=== PATIENT | female | born 1935 | race Caucasian/White ===

== ENCOUNTER 2017-05-20 21:00 | Inpatient (IN) ==
[2017-05-20] MEDS ORDERED: PANTOPRAZOLE 40 MG VIAL IV STA (21:51)
[2017-05-20] MEDS ORDERED: METOCLOPRAMIDE 10 MG/2 ML VIAL IV STA (21:51)
[2017-05-20] MEDS ORDERED: ALBUTEROL/IPRATROPIUM 3 ML NEB RESP TX STA (21:51)
[2017-05-20] MEDS ORDERED: methylPREDNISolone SOD SUC 125 MG/2 ML VIAL IV STA (21:51)
[2017-05-20] MEDS ORDERED: LEVOFLOXACIN INJ 750 MG in PREMIX 1 EACH IV STA (21:54)
--- NOTE | 2017-05-20 22:01 | Emergency Department Note ---
Arrival - Arrival Chief Complaint: Shortness of Breath Stated Complaint: SOB ED Nursing Triage Note: pt presented to triage via w/c with c/o SOB x 1 week. worse tonight. Albuterol neb taken [employer] w/o relief. denies cp at this time. Esophageal dilation done 05/15/17 Mode of Arrival: Wheelchair Limitations: No Limitations Source: Patient, Family Time Seen by Provider: 05/20/17 21:51 - History of Present Illness HPI Narrative: This 81-year-old white female presents with one-week of persistent shortness of breath associated with a dry cough and occasional wheeze. The patient denies any chills, fever, purulence, or hemoptysis. Patient states that whenever she has an esophageal procedure done, she usually has an exacerbation of her COPD or aspiration pneumonia. In this regard she had esophageal dilation in the last week. Currently at rest in bed she appears in no acute distress. Onset (ago): week(s) (Patient presents 1 week post onset of symptoms) Date of Last Menstrual Period: [facility] Allergies/Adverse Reactions: Allergies Allergy/AdvReac Type Severity Reaction Status Date / Time No Known Allergies Allergy Verified 05/20/17 21:14 Home Medications: Home Medications Medication Instructions Recorded Confirmed Type Escitalopram [Lexapro] 20 mg PO BEDTIME 12/08/15 05/09/17 History Mometasone/Formoterol 100-5 2 puff INH BID PRN 12/08/15 05/15/17 History [Dulera 100-5] Amiodarone Tab [Cordarone Tab] 200 mg PO DAILY tablet 02/22/16 05/09/17 Rx Furosemide Tab [Lasix Tab] 40 mg PO DAILY tablet 02/22/16 05/09/17 Rx Promethazine Tab [Phenergan Tab] 25 mg PO BID PRN 06/20/16 05/09/17 History Albuterol/Ipratropium Neb [Duoneb] 3 ml RESP TX RT Q6H PRN 06/21/16 05/15/17 History Ondansetron Tab [Zofran Tab] 8 mg PO Q6HR PRN 05/09/17 05/09/17 History Pantoprazole Tab [Protonix Tab] 40 mg PO DAILY 05/09/17 05/09/17 History Temazepam [Restoril] 30 mg PO DAILY 05/09/17 05/09/17 History Warfarin [Coumadin] 1.5 tablet PO DAILY@1800 05/09/17 05/09/17 History Levofloxacin Tab [Levaquin Tab] 750 mg PO DAILY #10 tablet 05/21/17 Rx predniSONE TAB [PredniSONE] 20 mg PO DAILY #15 tablet 05/21/17 Rx Review of System - Review of System 12 point system: reviewed and no additional remarkable complaints except as stated - Review of System Constitutional: Present: as per HPI Respiratory: Present: as per HPI Cardiovascular: Present: as per HPI Gastrointestinal: Present: as per HPI Medical,Surgical,& Family Hx - Medical History Cardio: History of: Cardiac Dysrhythmia (A-FIB ON COUMADIN), CHF, PVD (FOR AF ARTERIOGRAM 03/08/15), Cardiovascular Problems (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 BANUELOS), Obstructive Sleep Apnea (no sleep study), Pneumonia Genitourinary: History of: Recurring Urinary Tract Infections Gastrointestinal: History of: Diverticulitis/ Diverticulosis, GERD, Hemorrhoids (HEMORRHOIDECTOMY), GI Problems (HIATAL HERNIA, botox to esophagus x1, needs again) No history of: Hepatitis, Liver Problems Musculoskeletal: History of: Back/Neck Problems, Degenerative Disk Disease, Herniated Disk, Musculoskeletal Problems (ARTHRITIS and lupus) No history of: Amputation Hematology: History of: Anemia No history of: Blood Transfusion Reaction (GREATER 50 YRS SEVERAL BLOOD TRANSFUSIONS-NO REACTION) Other: History of: 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) - Surgical History Cardiac Surgeries: Sugical HX of: Femoral-Popliteal Bypass Graft (stents to bilat legs), Cardiac Catheterization (x2) Patient Denies: Carotid Endarterectomy Thoracic Surgeries: Patient denies;: Organ Transplant, Lobectomy Neurologic Surgeries: Patient denies: Neurologic Surgery HEENT Surgeries: Surgical HX of: Eye Surgery (CATARACT BILATERALLY) Patient denies: Carotid Endarterectomy, Tonsilectomy & Adenoidectomy Abdominal Surgeries: Surgical HX of: Abdominal Surgery, Appendectomy, Colonoscopy, EGD Patient denies: Cholecystectomy Reproductive Surgeries: Surgical HX of;: Gynecologic Surgery, Hysterectomy (BSO 1961) Patient denies;: Breast Surgery, Genitourinary Surgery Orthopedic Surgeries: Patient denies;: Orthopedic Surgery - Family History Family History: Reports;: Family Cancer (MOTHER KIDNEY, BROTHER BONE, and sister ), Family Heart Disease (FATHER OF CHF), Family Hypertension (SISTER), Family Stroke (SISTERS times 3) - Social History Smoking Status: Current every day smoker Frequency of Alcohol Use: Rarely Type of Drug Use: None Exam Physical Examination: GENERAL: Well developed, well nourished elderly white female in no acute distress. HEENT: Normocephalic. No trauma. Moist mucous membranes. EOMI. PERRLA. ENT NML NECK: Supple. No adenopathy. CARDIAC: Regular. No murmurs. Heart rate 84 CHEST: Clear to auscultation. No respiratory distress. O2 sat 91% ABDOMEN: Soft. Nontender. Active bowel sounds. EXTREMITIES: No trauma. Normal ROM. No pedal edema. SKIN: No diaphoresis. No rash. NEURO: Alert. Neuro intact no focal deficits. Vital Signs: Vital Signs Temperature 99.4 F 05/20/17 21:09 Pulse Rate 64 05/20/17 21:09 Respiratory Rate 18 05/20/17 21:09 Blood Pressure 200/72 05/20/17 21:09 O2 Sat by Pulse Oximetry 91 L 05/20/17 21:09 Course - Reevaluation(s) Reevaluation #1: Discussed with patient the results of her studies which would indicate a combination of exacerbation of COPD with possible early right lower lobe infiltrate as well as congestive heart failure. For that reason she has been advised hospitalization. - Consultations Consultation #1: Discussed with hospitalist service who will admit for further evaluation treatment. Results - Labs CBC & BMP: 05/20/17 22:18 05/20/17 22:18 Disposition Clinical Impression: Tracheobronchitis, CHF, RLL infiltrate, Hypokalemia Case discussed with: patient, patient's family Disposition: Still a Patient Condition: Stable Instructions: Chronic Obstructive Pulmonary Disease (ED) Prescriptions: Levofloxacin Tab [Levaquin Tab] 750 mg PO DAILY #10 tablet predniSONE TAB [PredniSONE] 20 mg PO DAILY #15 tablet New Prescriptions: Rx's Medication Instructions Recorded Levofloxacin Tab [Levaquin Tab] 750 mg PO DAILY #10 tablet 05/21/17 predniSONE TAB [PredniSONE] 20 mg PO DAILY #15 tablet 05/21/17 Time of Disposition: 00:39
[2017-05-20] MEDS ORDERED: LEVOFLOXACIN INJ 150 ML IV ONE (22:57)
[2017-05-20] MEDS ORDERED: PANTOPRAZOLE 40 MG VIAL IV ONE (22:57)
[2017-05-20] MEDS ORDERED: METOCLOPRAMIDE 10 MG/2 ML VIAL ONE (22:57)
[2017-05-20] MEDS ORDERED: methylPREDNISolone SOD SUC 125 MG/2 ML VIAL ONE (22:58)
[2017-05-20 23:22] LABS: Albumin 2.9 G/DL (3.4-5.0); Bilirubin,Total 0.6 MG/DL (0.2-1.0); Calcium 8.3 MG/DL (8.5-10.1); Osmolality,Calculated 276.5 MOS/KG (273-304); Potassium 3.1 MMOL/L (3.5-5.1); Total Protein 7.6 G/DL (6.4-8.3)
[2017-05-20 23:23] LABS: Troponin I Only 0.054 NG/ML (0.00-0.045)
[2017-05-20 23:29] LABS: Basophils % 0.7 % (0.0-0.8); Eosinophils # 0.1 10*3/uL (0.0-0.87); Hematocrit 35.2 VOL% (35.7-47.0); Immature Granulocytes % 0.3 %; Immature Granulocytes Absolute 0.02 #; Lymphocytes # 2.5 10*3/uL (1.4-4.0); Lymphocytes % 40.8 % (21.3-54.2); Mean Corpuscular HGB Conc 31.3 GM/DL (32-36); Mean Corpuscular Hemoglobin 27 PG (27-34); Mean Corpuscular Volume 86.3 FL (87-102); Mean Platelet Volume 11.5 FL (9.6-12.0); Monocytes # 0.8 10*3/uL (0.11-0.8); Monocytes % 12.6 % (1.7-12.7); Neutrophils # 2.7 10*3/uL (1.4-7.4); Neutrophils % 43.6 % (38.7-73.9); Platelet Count 172 T/CUMM (130-400); Red Blood Count 4.08 MC/CUMM (3.8-5.5); White Blood Count 6.1 T/CUMM (4-12)
[2017-05-20] MEDS ORDERED: POTASSIUM BICARB EFFERVESCENT 25 MEQ TABLET PO ONE (23:37)
[2017-05-20 23:43] LABS: D-Dimer <= 0.5 MG/L FEU; INR 2.1; Partial Thromboplastin Time 29.2 SECS (0-40)
[2017-05-20 23:44] LABS: PT Patient Result 22.7 SECS
[2017-05-21 00:18] LABS: Apearance,Urine CLEAR (Clear); Bilirubin,Urine Negative (Negative); Blood, Urine Negative (Negative); Glucose,Urine (UA) Negative (Negative); Ketones,Urine Negative (Negative); Nitrite,Urine Negative (Negative); Protein,Urine Negative; Squamous Epithelial Cell,Urine Occasional /HPF (0-10); Urine Color Yellow (Yellow); Urine Specific Gravity 1.005 (1.001-1.035); WBC,Urine 3 /HPF (0-6)
[2017-05-21 00:19] LABS: RBC,Urine <1 /HPF (0-4)
[2017-05-21] MEDS ORDERED: POTASSIUM BICARB EFFERVESCENT 25 MEQ TABLET PO ONE (00:34)
[2017-05-21] MEDS ORDERED: ONDANSETRON 4 MG/2 ML VIAL IV STA (00:38)
[2017-05-21] MEDS ORDERED: ONDANSETRON 4 MG/2 ML VIAL ONE (00:39)
[2017-05-21 00:42] LABS: Troponin I Only 0.054 NG/ML (0.00-0.045)
[2017-05-21] MEDS ORDERED: FUROSEMIDE 20 MG/2 ML VIAL IV STA (01:01)
[2017-05-21] MEDS ORDERED: ALBUTEROL/IPRATROPIUM 3 ML NEB RESP TX STA (01:02)
[2017-05-21] MEDS ORDERED: ACETAMINOPHEN 325 MG TABLET PO PRN (01:02)
[2017-05-21] MEDS ORDERED: ONDANSETRON 4 MG/2 ML VIAL IV PRN (01:02)
[2017-05-21] MEDS ORDERED: FUROSEMIDE 20 MG/2 ML VIAL ONE (01:03)
[2017-05-21] MEDS ORDERED: ALBUTEROL/IPRATROPIUM 3 ML NEB RESP TX PRN (01:12)
[2017-05-21] MEDS: cefTRIAXone 2,000 MG in SODIUM CHLORIDE 0.9% 100 ML IV SCH (02:42)
[2017-05-21 03:21] LABS: Basophils % 0.3 % (0.0-0.8); Hematocrit 32.9 VOL% (35.7-47.0); Hemoglobin 10.3 GM/DL (12.0-16.0); Immature Granulocytes % 0.5 %; Immature Granulocytes Absolute 0.02 #; Lymphocytes # 0.4 10*3/uL (1.4-4.0); Lymphocytes % 10.9 % (21.3-54.2); Mean Corpuscular HGB Conc 31.3 GM/DL (32-36); Mean Corpuscular Hemoglobin 27 PG (27-34); Mean Corpuscular Volume 86.1 FL (87-102); Mean Platelet Volume 11.7 FL (9.6-12.0); Monocytes # 0.1 10*3/uL (0.11-0.8); Monocytes % 2.3 % (1.7-12.7); Neutrophils # 3.3 10*3/uL (1.4-7.4); Platelet Count 178 T/CUMM (130-400); Red Blood Count 3.82 MC/CUMM (3.8-5.5); White Blood Count 3.9 T/CUMM (4-12)
[2017-05-21 03:49] LABS: Calcium 8.3 MG/DL (8.5-10.1); Osmolality,Calculated 283.4 MOS/KG (273-304); Potassium 3.1 MMOL/L (3.5-5.1)
[2017-05-21 04:11] LABS: PT Patient Result 22.5 SECS
--- NOTE | 2017-05-21 04:26 | Hospitalist History & Physical ---
Assessment and Plan - Time spent with patient Time spent with patient: Greater than 30 minutes (1) Pneumonia Problem details: CAP; RLL Status: Acute Assessment and plan: Admit to hospitalist services. Consult Pulmonology. Telemetry. O2 per unit protocol. Doxycycline 100 mg PO BID and Ceftriaxone 2,000 mg IV Q24 hours selected for antibiotic therapy due to the patient taking amiodarone and there is a risk of drug interaction causing prolonged QT intervals with other antibiotic medications. DuoNebs Q4 hours PRN. Solumedrol 60 mg IV Q8 hours. CBC and BMP in AM. Blood cultures pending. Follow. Patient is on Coumadin, so no additional DVT prophylaxis needed. Pneumonia vaccine at discharge. Current Visit: No (2) COPD exacerbation Status: Acute Assessment and plan: O2 per unit protocol. Solumedrol 60 mg IV Q8 hours. DuoNebs Q4 hours PRN. Current Visit: Yes (3) Hypokalemia Status: Acute Assessment and plan: KCl 10 meq BID. Recheck BMP in AM. Current Visit: Yes (4) Congestive heart failure Problem details: Mild decompensation Status: Acute Assessment and plan: Cardiac diet. Serial Troponins. Lasix 20 mg IV x 1 dose ordered in ED before patient transfer to floor. Lasix 20 mg IV BID. Current Visit: No Qualifiers: Congestive heart failure type: diastolic Congestive heart failure chronicity: acute on chronic Qualified Code(s): I50.33 - Acute on chronic diastolic (congestive) heart failure (5) History of atrial fibrillation Status: Chronic Assessment and plan: Telemetry. Continue home dose of Coumadin 2 mg daily. Continue home dose of Amiodarone 200 mg daily. Repeat PT/INR in AM. Current Visit: No (6) Anxiety and depression Status: Chronic Assessment and plan: Continue home dose of Lexapro 20 mg QHS. Current Visit: No History of Present Illness Chief complaint: Shortness of breath History of present illness: Ms. Valdez is a 81 year old female who presented to the ED accompanied by her daughter with complaints of worsening shortness of breath over the course of 1 week, dry cough, weakness, malaise, and chills. In the ED, her chest xray showed RLL infiltrates. She was also found to have an elevated BNP at 700 which is consistent with her past medical history that includes CHF. However, tonight she also had a small elevation in her troponin from baseline at .054. Her WBC count was normal and potassium was low at 3.1. Her ECG showed normal sinus rhythm. She has a past medical history significant for COPD, pacemaker, CHF, hypotension, Afib, Lupus and Depression. She is a current every day smoker. Hospitalist services were consulted for medical management of CAP and chronic conditions. Patient is a full code. Home Medications Medication Instructions Recorded Confirmed Type Amiodarone HCl [Amiodarone HCl] 200 mg PO DAILY 05/21/17 05/21/17 History Escitalopram [Lexapro] 10 mg PO DAILY 05/21/17 05/21/17 History Fludrocortisone [Florinef] 0.1 mg PO DAILY 05/21/17 05/21/17 History Furosemide [Furosemide] 40 mg PO DAILY 05/21/17 05/21/17 History Levofloxacin Tab [Levaquin Tab] 750 mg PO DAILY #10 tablet 05/21/17 Rx Pantoprazole Tab [Protonix Tab] 40 mg PO DAILY 05/21/17 05/21/17 History Temazepam [Temazepam] 30 mg PO BEDTIME 05/21/17 05/21/17 History Warfarin Sodium [Warfarin Sodium] 2 mg PO DAILY 05/21/17 05/21/17 History Allergies Allergy/AdvReac Type Severity Reaction Status Date / Time No Known Allergies Allergy Verified 05/20/17 21:14 Medical,Surgical,& Family Hx - Medical History Cardio: History of: Cardiac Dysrhythmia (A-FIB ON COUMADIN), CHF, Pacemaker, PVD (FOR AF ARTERIOGRAM 03/08/15), Cardiovascular Problems (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 BANUELOS), Obstructive Sleep Apnea (no sleep study), Pneumonia Genitourinary: History of: Recurring Urinary Tract Infections Gastrointestinal: History of: Diverticulitis/ Diverticulosis, GERD, Hemorrhoids (HEMORRHOIDECTOMY), GI Problems (HIATAL HERNIA, botox to esophagus x1, needs again) No history of: Hepatitis, Liver Problems Musculoskeletal: History of: Back/Neck Problems, Degenerative Disk Disease, Herniated Disk, Musculoskeletal Problems (ARTHRITIS and lupus) No history of: Amputation Hematology: History of: Anemia No history of: Blood Transfusion Reaction (GREATER 50 YRS SEVERAL BLOOD TRANSFUSIONS-NO REACTION) Other: History of: 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) - Surgical History Cardiac Surgeries: Sugical HX of: Femoral-Popliteal Bypass Graft (stents to bilat legs), Cardiac Catheterization (x2) Patient Denies: Carotid Endarterectomy Thoracic Surgeries: Patient denies;: Organ Transplant, Lobectomy Neurologic Surgeries: Patient denies: Neurologic Surgery HEENT Surgeries: Surgical HX of: Eye Surgery (CATARACT BILATERALLY) Patient denies: Carotid Endarterectomy, Tonsilectomy & Adenoidectomy Abdominal Surgeries: Surgical HX of: Abdominal Surgery, Appendectomy, Colonoscopy, EGD Patient denies: Cholecystectomy Reproductive Surgeries: Surgical HX of;: Gynecologic Surgery, Hysterectomy (BSO 1961) Patient denies;: Breast Surgery, Genitourinary Surgery Orthopedic Surgeries: Patient denies;: Orthopedic Surgery - Family History Family History: Reports;: Family Cancer (MOTHER KIDNEY, BROTHER BONE, and sister ), Family Heart Disease (FATHER OF CHF), Family Hypertension (SISTER), Family Stroke (SISTERS times 3) - Social History Smoking Status: Current every day smoker Have you smoked in the last 12 months: Yes Time spent discussing smoking cessation with patient: 3 to 10 minutes Frequency of Alcohol Use: Rarely Type of Drug Use: None Marital Status: Lives With:: Alone Functional capacity: independent ambulation 12 point system: reviewed and no additional remarkable complaints except as stated - Constitutional Constitutional: Present: chills, malaise, weakness - EENT Eyes: Absent: blurry vision, diplopia Ears: Absent: decreased hearing, ear discharge, ear pain Nose, mouth and throat: Absent: nasal congestion, sore throat - Cardiovascular Cardiovascular: Present: dyspnea, edema. Absent: chest pain at rest, lightheadedness, orthopnea, palpitations - Respiratory Respiratory: Present: cough, dyspnea. Absent: hemoptysis, wheezing - Gastrointestinal Gastrointestinal: Absent: abdominal pain, constipation, diarrhea, nausea, vomiting - Genitourinary Genitourinary: Absent: dysuria, urinary frequency - Musculoskeletal Musculoskeletal: Present: arthralgias, muscle weakness. Absent: joint swelling , myalgias - Neurological Neurological: Absent: dizziness, numbness, paresthesias - Psychiatric Psychiatric: Absent: anxiety, depression - Endocrine Endocrine: Absent: polydipsia, polyphagia, polyuria - Hematologic/Lymphatic Hematologic/Lymphatic: Present: easy bruising. Absent: easy bleeding Exam - Constitutional Vitals: Period Temp Pulse Resp BP Sys/Schreiber Pulse Ox Last 24 Hr 99.4 F 59-71 13-25 136-200/62-86 89-100 Exam: Constitutional System: Low grade temp of 99.4. Awake, alert and oriented x3. No distress. No tremulousness. Head: Normocephalic, atraumatic. Ears, Nose and Throat System: No pain or tenderness. No epistaxis or discharge. Eyes System: Pupils equal, round, and reactive. Extraocular muscles intact. Neck: Supple, without adenopathy, No jugular venous distention. No thyromegaly, neck mass, or prior surgery apparent. Respiratory System: Bilateral rhonchi and bibasilar fine rales noted. Cardiovascular System: Heart with regular rate and rhythm. No murmur. GI System: Abdomen soft, nontender. Normo active bowel sounds present. Musculoskeletal System: 1+ bilateral pedal edema. Full distal pulses. Normal capillary refill. Neurological System: No discernable sensory deficit. No aphasia Psychiatric System: Conversation is rational Results - Labs CBC & BMP: 05/21/17 03:00 05/21/17 03:00 Lab Results: I have reviewed the past 24 hour labs
--- NOTE | 2017-05-21 05:56 | EKG Report ---
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
[2017-05-21] MEDS ORDERED: methylPREDNISolone SOD SUC 40 MG/1 ML VIAL IV SCH (07:00)
--- NOTE | 2017-05-21 07:20 | XRay Report ---
2 view chest. Indication: Shortness of breath. Comparison: July 13, 2016. The heart is enlarged. There is calcific plaque present within the aortic knob. Cardiac hardware is in satisfactory position. The lung ag are hyperexpanded. Interstitial fibrotic changes are present. Diffuse infiltrates and pleural effusions seen on the previous study are no longer present. Degenerative changes are noted within the spinal column. Impression: Severe chronic lung changes. No definite acute process. PROCEDURE INTERPRETED AT [facility] DEPARTMENT OF RADIOLOGY Final Report Signed by: Dr. Jessica Patel
--- NOTE | 2017-05-21 08:53 | Pulmonology Consult Note ---
Assessment and Plan (1) Acute exacerbation of chronic obstructive pulmonary disease (COPD) Status: Acute Assessment and plan: The patient comes in with coughing and shortness of breath and she feels like she is plugged up like she was in the past. She does have trouble clearing thick secretions. Will plan a therapeutic bronchoscopy tomorrow. Current Visit: No (2) Anticoagulant long-term use Status: Chronic Assessment and plan: She is chronically on Coumadin. Her INR is 2.0. Current Visit: No (3) History of atrial fibrillation Status: Chronic Assessment and plan: She has a pacemaker and takes amiodarone therapy. Current Visit: No (4) Protein S deficiency Status: Chronic Assessment and plan: She has had a problem with chronic clotting. Current Visit: No (5) Esophageal motility disorder Status: Chronic Assessment and plan: She has achalasia and had an EGD last week with Botox injections. Current Visit: No (6) Lupus Status: Chronic Assessment and plan: She is not having any problems with lupus at present. Current Visit: No History of Present Illness Chief complaint: Shortness of breath History of present illness: Ms. Valdez is a 81 year old white female that has a long history of several medical problems. She has COPD and chronic heart disease. She has had chronic atrial fibrillation requiring multiple medicines. She has had a pacemaker placed in the past. She has a history of SLE and clotting problems and is on Coumadin. She has had problems with achalasia last week had her esophagus injected with Botox. She says the last several days she has had trouble clearing her secretions and comes in short of breath. She has had mucus plugging in the past. She does have bibasilar infiltrates. She does not appear to be in heart failure at present. She has required therapeutic bronchoscopies in the past. Home Medications Medication Instructions Recorded Confirmed Type Amiodarone HCl [Amiodarone HCl] 200 mg PO DAILY 05/21/17 05/21/17 History Escitalopram [Lexapro] 10 mg PO DAILY 05/21/17 05/21/17 History Fludrocortisone [Florinef] 0.1 mg PO DAILY 05/21/17 05/21/17 History Furosemide [Furosemide] 40 mg PO DAILY 05/21/17 05/21/17 History Levofloxacin Tab [Levaquin Tab] 750 mg PO DAILY #10 tablet 05/21/17 Rx Pantoprazole Tab [Protonix Tab] 40 mg PO DAILY 05/21/17 05/21/17 History Temazepam [Temazepam] 30 mg PO BEDTIME 05/21/17 05/21/17 History Warfarin Sodium [Warfarin Sodium] 2 mg PO DAILY 05/21/17 05/21/17 History Allergies Allergy/AdvReac Type Severity Reaction Status Date / Time No Known Allergies Allergy Verified 05/20/17 21:14 - Constitutional Constitutional: Present: fatigue. Absent: chills, fever(s), weight gain - EENT Eyes: Absent: loss of vision Ears: Absent: decreased hearing Nose, mouth and throat: Present: dysphagia. Absent: headache(s), sinus pressure - Cardiovascular Cardiovascular: Present: dyspnea, edema, orthopnea, palpitations. Absent: chest pain at rest - Respiratory Respiratory: Present: cough, dyspnea, wheezing. Absent: hemoptysis, pain on inspiration, change in phlegm color - Gastrointestinal Gastrointestinal: Present: dysphagia. Absent: abdominal pain, change in bowel habits, heartburn, nausea, vomiting - Genitourinary Genitourinary: Absent: dysuria, hematuria, urinary frequency - Musculoskeletal Musculoskeletal: Present: arthralgias, muscle weakness. Absent: joint swelling - Neurological Neurological: Absent: abnormal speech, focal weakness, paresthesias - Psychiatric Psychiatric: Absent: anxiety Exam (Pulmonay) H&P - Constitutional Vitals: Period Temp Pulse Resp BP Sys/Schreiber Pulse Ox Last 24 Hr 98.3 F-99.4 F 59-71 13-25 117-200/50-86 89-100 General appearance: normal weight, no acute distress (She is comfortable on low- flow oxygen.) - Head Head exam: Present: normal inspection, normocephalic - Eye Eye exam: Present: EOMI. Absent: scleral icterus Pupils: Present: CELIO - ENT ENT exam: Present: normal exam - Neck Neck exam: Absent: lymphadenopathy, thyromegaly - Respiratory Respiratory exam: Present: decreased breath sounds, prolonged expiratory phase, rales, rhonchi - Cardiovascular Cardiovascular exam: Present: regular rate and rhythm. Absent: gallop, systolic murmur - GI/Abdominal GI/Abdominal exam: Present: normal bowel sounds, soft. Absent: organomegaly, tenderness - Extremities Exam Extremities exam: Present: edema (She has very mild edema of her lower extremities.). 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 BANUELOS), Obstructive Sleep Apnea (no sleep study), Pneumonia Genitourinary: History of: Recurring Urinary Tract Infections Gastrointestinal: History of: Diverticulitis/ Diverticulosis, GERD, Hemorrhoids (HEMORRHOIDECTOMY), GI Problems (HIATAL HERNIA, botox to esophagus x1, needs again) No history of: Hepatitis, Liver Problems Musculoskeletal: History of: Back/Neck Problems, Degenerative Disk Disease, Herniated Disk, Musculoskeletal Problems (ARTHRITIS and lupus) No history of: Amputation Hematology: History of: Anemia No history of: Blood Transfusion Reaction (GREATER 50 YRS SEVERAL BLOOD TRANSFUSIONS-NO REACTION) Other: History of: 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) - Surgical History Cardiac Surgeries: Sugical HX of: Femoral-Popliteal Bypass Graft (stents to bilat legs), Cardiac Catheterization (x2) Patient Denies: Carotid Endarterectomy Thoracic Surgeries: Patient denies;: Organ Transplant, Lobectomy Neurologic Surgeries: Patient denies: Neurologic Surgery HEENT Surgeries: Surgical HX of: Eye Surgery (CATARACT BILATERALLY) Patient denies: Carotid Endarterectomy, Tonsilectomy & Adenoidectomy Abdominal Surgeries: Surgical HX of: Abdominal Surgery, Appendectomy, Colonoscopy, EGD Patient denies: Cholecystectomy Reproductive Surgeries: Surgical HX of;: Gynecologic Surgery, Hysterectomy (BSO 1961) Patient denies;: Breast Surgery, Genitourinary Surgery Orthopedic Surgeries: Patient denies;: Orthopedic Surgery - Family History Family History: Reports;: Family Cancer (MOTHER KIDNEY, BROTHER BONE, and sister ), Family Heart Disease (FATHER OF CHF), Family Hypertension (SISTER), Family Stroke (SISTERS times 3) - Social History Smoking Status: Current every day smoker Frequency of Alcohol Use: Rarely Type of Drug Use: None Results - Labs CBC & BMP: 05/21/17 03:00 05/21/17 03:00 - Diagnostic Findings Procedure: Chest x-ray: image reviewed by me, report reviewed by me (Chest x- ray shows COPD changes and bibasilar infiltrates.) Specialty Discharge - Follow Up or Referrals
[2017-05-21] MEDS: POTASSIUM CHLORIDE 10 MEQ TABLET PO SCH ×2 (08:55→20:26)
[2017-05-21] MEDS: AMIODARONE 200 MG TABLET PO SCH (08:56)
[2017-05-21] MEDS: PANTOPRAZOLE 40 MG TABLET PO SCH (08:56)
[2017-05-21] MEDS: FUROSEMIDE 20 MG/2 ML VIAL IV SCH ×2 (08:56→17:34)
[2017-05-21] MEDS: DOXYCYCLINE HYCLATE 100 MG CAPSULE PO SCH ×2 (08:56→20:26)
[2017-05-21] MEDS ORDERED: POTASSIUM CHLORIDE 20 MEQ TABLET PO ONE (08:59)
[2017-05-21] MEDS: methylPREDNISolone SOD SUC 40 MG/1 ML VIAL IV SCH ×2 (10:04→17:33)
[2017-05-21] MEDS: WARFARIN 1 MG TABLET PO SCH (17:34)
[2017-05-21] MEDS ORDERED: WARFARIN 5 MG TABLET PO SCH (18:00)
[2017-05-21] MEDS: ESCITALOPRAM 10 MG TABLET PO SCH (20:26)
[2017-05-21] MEDS: TEMAZEPAM 15 MG CAPSULE PO SCH (20:38)
[2017-05-22] MEDS: cefTRIAXone 2,000 MG in SODIUM CHLORIDE 0.9% 100 ML IV SCH (02:06)
[2017-05-22] MEDS: methylPREDNISolone SOD SUC 40 MG/1 ML VIAL IV SCH ×3 (02:06→17:37)
[2017-05-22] MEDS ORDERED: GLYCOPYRROLATE 0.4 MG/2 ML VIAL IM ONE (07:00)
[2017-05-22] MEDS ORDERED: PROMETHAZINE 25 MG/1 ML VIAL IM ONE (07:00)
[2017-05-22] MEDS ORDERED: MEPERIDINE 50 MG/1 ML VIAL IM ONE (07:00)
[2017-05-22 07:22] LABS: Basophils % 0.1 % (0.0-0.8); Hematocrit 35.5 VOL% (35.7-47.0); Hemoglobin 10.8 GM/DL (12.0-16.0); Immature Granulocytes % 0.7 %; Immature Granulocytes Absolute 0.07 #; Lymphocytes # 0.7 10*3/uL (1.4-4.0); Lymphocytes % 6.9 % (21.3-54.2); Mean Corpuscular HGB Conc 30.4 GM/DL (32-36); Mean Corpuscular Hemoglobin 27 PG (27-34); Mean Corpuscular Volume 88.1 FL (87-102); Mean Platelet Volume 11.9 FL (9.6-12.0); Monocytes # 0.3 10*3/uL (0.11-0.8); Monocytes % 3.2 % (1.7-12.7); Neutrophils # 9.4 10*3/uL (1.4-7.4); Neutrophils % 89.1 % (38.7-73.9); Platelet Count 210 T/CUMM (130-400); Red Blood Count 4.03 MC/CUMM (3.8-5.5); Red Cell Distribution Width 16.3 % (9.3-17.3); White Blood Count 10.5 T/CUMM (4-12)
[2017-05-22] MEDS ORDERED: LIDOCAINE 1% 20 ML VIAL MISC INJ ONE (07:30)
[2017-05-22] MEDS ORDERED: MIDAZOLAM 2 MG/2 ML VIAL IV ONE (07:30)
[2017-05-22] MEDS ORDERED: LIDOCAINE 2% 20 ML VIAL RESP TX ONE (07:30)
[2017-05-22] MEDS ORDERED: LIDOCAINE 2% VISCOUS 100 ML BOTTLE SWISH/SPIT ONE (07:30)
--- NOTE | 2017-05-22 07:44 | Pulmonology Progress Note ---
Pulmonary - PN: Subj Interval history: The patient is an 81-year-old that has COPD and some chronic heart disease. She came in with shortness of breath and bibasilar infiltrates. She has achalasia and had her esophagus injected last week with Botox. She has had trouble swallowing off and on for quite some time. She comes in now with some coughing and congestion and feels like she is plugged up some degree. She wants to proceed with a therapeutic bronchoscopy. She does seem to be breathing better at this point. Exam (Progress Note) - Constitutional Vitals: Period Temp Pulse Resp BP Sys/Schreiber Pulse Ox Last 24 Hr 97.8 F-98.7 F 60-67 13-20 131-178/47-90 90-95 Exam: General appearance: normal weight, no acute distress (She is breathing comfortably at present.) - Head Head exam: Present: normal inspection, normocephalic - Eye Eye exam: Present: EOMI. Absent: scleral icterus Pupils: Present: CELIO - ENT ENT exam: Present: normal exam - Neck Neck exam: Absent: lymphadenopathy, thyromegaly - Respiratory Respiratory exam: She has fair breath sounds bilaterally with prolonged expiration but not much wheezing now. - Cardiovascular Cardiovascular exam: Present: regular rate and rhythm. Absent: gallop, systolic murmur - GI/Abdominal GI/Abdominal exam: Present: normal bowel sounds, soft. Absent: organomegaly, tenderness - Extremities Exam Extremities exam: Present: edema (She has very mild edema of her lower extremities.). Absent: calf tenderness - Neurological Exam Neurological exam: Present: alert, oriented X3, CN II-XII intact, no focal deficits - Psychiatric Psychiatric exam: Present: normal affect, normal mood - Skin Skin exam: Present: warm, dry Results - Labs CBC & BMP: 05/22/17 06:24 05/21/17 03:00 Assessment and Plan (1) Acute exacerbation of chronic obstructive pulmonary disease (COPD) Status: Acute Assessment and plan: The patient comes in with coughing and shortness of breath and she feels like she is plugged up like she was in the past. She does have trouble clearing thick secretions. She seems to be breathing a little better however. Will plan a therapeutic bronchoscopy today and continue treatment otherwise. Current Visit: No (2) Anticoagulant long-term use Status: Chronic Assessment and plan: She is chronically on Coumadin. Her INR is 2.0. Current Visit: No (3) History of atrial fibrillation Status: Chronic Assessment and plan: She has a pacemaker and takes amiodarone therapy. She is mainly in a paced rhythm. Current Visit: No (4) Protein S deficiency Status: Chronic Assessment and plan: She has had a problem with chronic clotting. Current Visit: No (5) Esophageal motility disorder Status: Chronic Assessment and plan: She has achalasia and had an EGD last week with Botox injections. She frequently has trouble swallowing. Current Visit: No (6) Lupus Status: Chronic Assessment and plan: She is not having any problems with lupus at present. Current Visit: No Specialty Discharge - Follow Up or Referrals
--- NOTE | 2017-05-22 07:48 | Operative Note ---
Date of procedure: 05/22/17 Pre-op diagnosis: COPD with bronchitis and mucous plugging Post-op diagnosis: same Procedure: The patient is an 81-year-old that has COPD and still smokes. She comes in with some chest congestion and feels like she is having trouble clearing her secretions. Will proceed with a therapeutic bronchoscopy today. Timeout was performed to identify the patient. The patient is in the bronchoscopy lab. Preop: Demerol 50 mg, Phenergan 25 mg, Robinul 0.1 mg IM. Anesthesia: Versed 3 mg IVP, topical lidocaine. Procedure: The fiberoptic bronchoscope was passed transnasally through the vocal cords into the lungs. The bronchopulmonary segments were identified and specimens were obtained. Findings: The vocal cords close normally and the trachea is unremarkable. The main bronchi are open. There is bronchitis present and airways collapse easily. There is some thick secretions and plugs present bilaterally. These are not as severe as they were in the past. The right upper lobe, right middle lobe, and right lower lobe are open. The left upper lobe, lingula, and left lower lobe are open. The airways were irrigated with saline and washed and cleared. She tolerated the bronchoalveolar lavage quite well. Washings were sent for culture. She really did not have any distress. There are no endobronchial lesions seen. Impression: COPD with bronchitis and mucous plugging. Plan: We will continue bronchodilator therapy. Anesthesia: conscious sedation Surgeon / Physician: Patrick Douglass Estimated blood loss: none Specimens: other (Bronchoalveolar lavage sent for culture.) Condition: stable Disposition: floor Results - Labs CBC & BMP: 05/22/17 06:24 05/21/17 03:00 Discharge Plan - Discharge Medications New Levofloxacin Tab [Levaquin Tab] 750 mg PO DAILY #10 tablet No Action Escitalopram [Lexapro] 10 mg PO DAILY Furosemide [Furosemide] 40 mg PO DAILY Amiodarone HCl [Amiodarone HCl] 200 mg PO DAILY Warfarin Sodium [Warfarin Sodium] 2 mg PO DAILY Fludrocortisone [Florinef] 0.1 mg PO DAILY Pantoprazole Tab [Protonix Tab] 40 mg PO DAILY Temazepam [Temazepam] 30 mg PO BEDTIME - Follow Up or Referral - Forms/Instructions Instructions: Chronic Obstructive Pulmonary Disease (ED)
[2017-05-22 07:49] LABS: Band Neutrophils 1 % (0-10); Giant Platelets Few; Hypochromasia 1+; Lymphocytes 6 % (20-55); Platelet Estimate Adequate; Segmented Neutrophils 91 % (50-85); Total Cells Counted 100
[2017-05-22 08:09] LABS: Calcium 9.2 MG/DL (8.5-10.1); Osmolality,Calculated 278.7 MOS/KG (273-304)
[2017-05-22] MEDS ORDERED: MIDAZOLAM 2 MG/2 ML VIAL ONE (09:21)
[2017-05-22] MEDS: AMIODARONE 200 MG TABLET PO SCH (09:53)
[2017-05-22] MEDS: DOXYCYCLINE HYCLATE 100 MG CAPSULE PO SCH ×2 (09:55→21:27)
[2017-05-22] MEDS: POTASSIUM CHLORIDE 10 MEQ TABLET PO SCH ×2 (09:55→21:27)
[2017-05-22] MEDS: PANTOPRAZOLE 40 MG TABLET PO SCH (09:55)
[2017-05-22] MEDS: FUROSEMIDE 20 MG/2 ML VIAL IV SCH ×2 (09:55→17:38)
--- NOTE | 2017-05-22 13:51 | Hospitalist Progress Note ---
Assessment and Plan (1) Pneumonia Problem details: CAP; RLL Status: Acute Assessment and plan: Continue Iv antibiotics. She is s/p BAL Follow Pulm's recommendations For possible dc in am Current Visit: No (2) Acute exacerbation of chronic obstructive pulmonary disease (COPD) Status: Acute Assessment and plan: s/p bronch Continue with steroids, antibiotics and bronchodilators Current Visit: No (3) Protein S deficiency Status: Chronic Assessment and plan: continue anticogulation INR monitoring Current Visit: No (4) History of atrial fibrillation Status: Chronic Assessment and plan: She has a pacemaker and takes amiodarone therapy. Current Visit: No (5) Esophageal motility disorder Status: Chronic Assessment and plan: She has achalasia and had an EGD last week with Botox injections. Current Visit: No (6) Lupus Status: Acute Assessment and plan: stable Current Visit: Yes (7) Anxiety and depression Status: Chronic Assessment and plan: continue with home meds. Current Visit: No Hospitalist: Subjective Interval history: Patient seen. She states she was doing pretty good.She had a BAL this am. Exam - Constitutional Vitals: Period Temp Pulse Resp BP Sys/Schreiber Pulse Ox Last 24 Hr 97.3 F-98.7 F 59-67 12-20 131-178/47-90 90-96 General appearance: no acute distress - Head Head exam: Present: normal inspection - Respiratory Respiratory exam: Present: clear to auscultation bilaterally, rales - Cardiovascular Cardiovascular exam: Present: regular rate and rhythm - GI/Abdominal GI/Abdominal exam: Present: normal bowel sounds - Extremities Exam Extremities exam: Present: normal inspection - Neurological Exam Neurological exam: Present: alert, oriented X3 Results - Labs CBC & BMP: 05/22/17 06:24 05/22/17 06:24 Lab Results: I have reviewed the past 24 hour labs Specialty Discharge - Follow Up or Referrals
[2017-05-22] MEDS: WARFARIN 1 MG TABLET PO SCH (17:37)
[2017-05-22] MEDS: TEMAZEPAM 15 MG CAPSULE PO SCH (21:27)
[2017-05-22] MEDS: ESCITALOPRAM 10 MG TABLET PO SCH (21:27)
[2017-05-23] MEDS: cefTRIAXone 2,000 MG in SODIUM CHLORIDE 0.9% 100 ML IV SCH (01:39)
[2017-05-23] MEDS: methylPREDNISolone SOD SUC 40 MG/1 ML VIAL IV SCH ×3 (01:40→17:38)
[2017-05-23 05:53] LABS: Hematocrit 33.7 VOL% (35.7-47.0); Hemoglobin 10.5 GM/DL (12.0-16.0); Immature Granulocytes % 0.7 %; Immature Granulocytes Absolute 0.06 #; Lymphocytes # 0.8 10*3/uL (1.4-4.0); Lymphocytes % 8.5 % (21.3-54.2); Mean Corpuscular HGB Conc 31.2 GM/DL (32-36); Mean Corpuscular Hemoglobin 27 PG (27-34); Mean Corpuscular Volume 86.2 FL (87-102); Mean Platelet Volume 11.6 FL (9.6-12.0); Monocytes # 0.2 10*3/uL (0.11-0.8); Monocytes % 2.3 % (1.7-12.7); Neutrophils # 8.1 10*3/uL (1.4-7.4); Neutrophils % 88.5 % (38.7-73.9); Platelet Count 187 T/CUMM (130-400); Red Blood Count 3.91 MC/CUMM (3.8-5.5); Red Cell Distribution Width 16.3 % (9.3-17.3); White Blood Count 9.1 T/CUMM (4-12)
[2017-05-23 06:23] LABS: Calcium 9.1 MG/DL (8.5-10.1); Osmolality,Calculated 278.8 MOS/KG (273-304)
--- NOTE | 2017-05-23 07:37 | XRay Report ---
History: Post bronchoscopy Date: 05/23/2017 Study: Chest x-ray AP portable Comparison exam: May 20, 2017 There is no evidence of a pneumothorax. There is cardiomegaly and pulmonary vascular engorgement. There is increasing hazy and groundglass pulmonary edema throughout both lungs compared to the previous study. There is mild right-sided pleural effusion which is increased. A left subclavian dual-lead transvenous pacemaker is stable in appearance. Osseous structures are similar. Impression: No evidence of pneumothorax following bronchoscopy. Worsening pulmonary edema PROCEDURE INTERPRETED AT [facility] DEPARTMENT OF RADIOLOGY Final Report Signed by: Dr. Kaila Currie
[2017-05-23] MEDS: DOXYCYCLINE HYCLATE 100 MG CAPSULE PO SCH ×2 (09:20→20:10)
[2017-05-23] MEDS: FUROSEMIDE 20 MG/2 ML VIAL IV SCH (09:21)
[2017-05-23] MEDS: POTASSIUM CHLORIDE 10 MEQ TABLET PO SCH ×2 (09:21→20:10)
[2017-05-23] MEDS: PANTOPRAZOLE 40 MG TABLET PO SCH (09:21)
[2017-05-23] MEDS: AMIODARONE 200 MG TABLET PO SCH (09:21)
--- NOTE | 2017-05-23 09:24 | Pulmonology Progress Note ---
Pulmonary - PN: Subj Interval history: The patient is an 81-year-old that has COPD and some chronic heart disease. She came in with shortness of breath and bibasilar infiltrates. She has achalasia and had her esophagus injected last week with Botox. She has had trouble swallowing off and on for quite some time. She comes in now with some coughing and congestion and feels like she is plugged up some degree. Yesterday we did a therapeutic bronchoscopy but her mucous plugging was not severe. She does have considerable bronchitis however. She still feels like she has some congestion and is still a little short of breath. Her chest x- ray is still very abnormal. We will need to continue with some vigorous therapy. Exam (Progress Note) - Constitutional Vitals: Period Temp Pulse Resp BP Sys/Schreiber Pulse Ox Last 24 Hr 97.3 F-98.1 F 60-65 16-20 153-161/70-87 88-94 Exam: General appearance: normal weight, no acute distress (She is breathing comfortably at present. She is sitting up and looks okay today.) - Head Head exam: Present: normal inspection, normocephalic - Eye Eye exam: Present: EOMI. Absent: scleral icterus Pupils: Present: CELIO - ENT ENT exam: Present: normal exam - Neck Neck exam: Absent: lymphadenopathy, thyromegaly - Respiratory Respiratory exam: She has fair breath sounds bilaterally with prolonged expiration but not much wheezing now. She does have crackles in the bases. - Cardiovascular Cardiovascular exam: Present: regular rate and rhythm. Absent: gallop, systolic murmur - GI/Abdominal GI/Abdominal exam: Present: normal bowel sounds, soft. Absent: organomegaly, tenderness - Extremities Exam Extremities exam: Present: Her leg swelling is actually better now. - Neurological Exam Neurological exam: Present: alert, oriented X3, CN II-XII intact, no focal deficits - Psychiatric Psychiatric exam: Present: normal affect, normal mood - Skin Skin exam: Present: warm, dry Results - Labs CBC & BMP: 05/23/17 05:24 05/23/17 05:24 - Diagnostic Findings Procedure: Chest x-ray: image reviewed by me, report reviewed by me (Chest x- ray does have bilateral infiltrates. There could be mild heart failure present. ) Assessment and Plan (1) Acute exacerbation of chronic obstructive pulmonary disease (COPD) Status: Acute Assessment and plan: The patient comes in with coughing and shortness of breath and she feels like she is plugged up like she was in the past. She does have trouble clearing thick secretions. She says she still coughing some. She did not have that much mucus plugging on bronchoscope. She does have a lot of bronchitis however. Will continue with vigorous treatment. Current Visit: No (2) Anticoagulant long-term use Status: Chronic Assessment and plan: She is chronically on Coumadin. Her INR is 2.0. Current Visit: No (3) History of atrial fibrillation Status: Chronic Assessment and plan: She has a pacemaker and takes amiodarone therapy. She is in a sinus rhythm now. Current Visit: No (4) Protein S deficiency Status: Chronic Assessment and plan: She has had a problem with chronic clotting. Current Visit: No (5) Esophageal motility disorder Status: Chronic Assessment and plan: She has achalasia and had an EGD last week with Botox injections. She frequently has trouble swallowing. Current Visit: No (6) Lupus Status: Chronic Assessment and plan: She is not having any problems with lupus at present. Current Visit: No Specialty Discharge - Follow Up or Referrals
[2017-05-23] MEDS: FUROSEMIDE 40 MG/4 ML VIAL IV SCH (10:41)
--- NOTE | 2017-05-23 10:43 | Hospitalist Progress Note ---
Assessment and Plan (1) Pneumonia Problem details: CAP; RLL Status: Acute Assessment and plan: Continue Iv antibiotics. She is s/p BAL Follow Pulm's recommendations- Her chest x-ray is still very abnormal. Pulm wants to continue vigorous therapy. Current Visit: No (2) Acute exacerbation of chronic obstructive pulmonary disease (COPD) Status: Acute Assessment and plan: s/p bronch Continue with steroids, antibiotics and bronchodilators Current Visit: No (3) Protein S deficiency Status: Chronic Assessment and plan: continue anticogulation INR monitoring Current Visit: No (4) History of atrial fibrillation Status: Chronic Assessment and plan: She has a pacemaker and takes amiodarone therapy. Current Visit: No (5) Esophageal motility disorder Status: Chronic Assessment and plan: She has achalasia and had an EGD last week with Botox injections. Current Visit: No (6) Lupus Status: Acute Assessment and plan: stable Current Visit: Yes (7) Anxiety and depression Status: Chronic Assessment and plan: continue with home meds. Current Visit: No Hospitalist: Subjective Interval history: Patient seen today with no new issues. She was sleeping. Dr Quintanilla wants her to stay another day due to her cxr that is still very abnormal. Exam - Constitutional Vitals: Period Temp Pulse Resp BP Sys/Schreiber Pulse Ox Last 24 Hr 97.3 F-98.1 F 60-65 16-20 145-161/70-87 87-94 General appearance: no acute distress - Head Head exam: Present: normal inspection - Respiratory Respiratory exam: Present: clear to auscultation bilaterally - Cardiovascular Cardiovascular exam: Present: regular rate and rhythm - GI/Abdominal GI/Abdominal exam: Present: normal bowel sounds - Extremities Exam Extremities exam: Present: normal inspection - Neurological Exam Neurological exam: Present: alert Results - Labs CBC & BMP: 05/23/17 05:24 05/23/17 05:24 Lab Results: I have reviewed the past 24 hour labs Specialty Discharge - Follow Up or Referrals
[2017-05-23] MEDS: ARFORMOTEROL 15 MCG/2 ML NEB RESP TX SCH ×2 (11:35→20:28)
[2017-05-23 12:16] LABS: INR 2.9
[2017-05-23 12:21] LABS: PT Patient Result 33.4 SECS
[2017-05-23] MEDS: WARFARIN 1 MG TABLET PO SCH (17:38)
[2017-05-23] MEDS: ESCITALOPRAM 10 MG TABLET PO SCH (20:10)
[2017-05-23] MEDS: TEMAZEPAM 15 MG CAPSULE PO SCH (20:10)
[2017-05-24] MEDS: methylPREDNISolone SOD SUC 40 MG/1 ML VIAL IV SCH (01:20)
[2017-05-24] MEDS: cefTRIAXone 2,000 MG in SODIUM CHLORIDE 0.9% 100 ML IV SCH (01:20)
[2017-05-24] MEDS: ARFORMOTEROL 15 MCG/2 ML NEB RESP TX SCH (07:05)
[2017-05-24 07:31] LABS: INR 3.5
[2017-05-24 07:36] LABS: PT Patient Result 40.4 SECS
--- NOTE | 2017-05-24 07:55 | Discharge Summary ---
<Marshal Mullins - Last Filed: 05/24/17 07:44> Hospital Course - Hospital Course Hospital Course: This is a chronically ill 81-year-old female that presented to the ED at [facility] on the morning of May 21, 2017 for the evaluation of shortness of breath. The patient has a medical history significant for chronic obstructive pulmonary disease, congestive heart failure , atrial fibrillation, depression, nicotine addiction, transient ischemic attack , vertigo, systemic lupus erythematosus, fibromyalgia, bronchitis, obstructive sleep apnea, recurrent urinary tract infections, pneumonia, diverticulitis, diverticulosis, gastroesophageal reflux disease, hemorrhoids, hiatal hernia, degenerative disc disease, osteoarthritis, and anemia. Patient has a surgical history significant for femoral-popliteal bypass graft with stent placement to bilateral lower extremities, cardiac catheterization, bilateral cataract removal , appendectomy, pacemaker placement, achalasia, colonoscopy, esophagogastroduodenoscopy, hysterectomy, hemorrhoidectomy. The patient reported the onset of symptoms 1 day prior to presentation. She reported a gradual onset of dry cough, weakness, malaise, and chills. Her symptoms gradually worsen prompting her to present to the ED for further evaluation. The patient was assessed at the time of ED presentation. At the time of ED presentation, the patient was noted to have a low-grade temperature noted at 99.4 and grossly hypertensive with a blood pressure noted at 200/72. Chest x- ray was obtained which was significant for severe chronic lung changes however, bibasilar infiltrates were noted.. Labs were obtained which were significant for hemoglobin 11.0, hematocrit 35.2, potassium 3.1, calcium 8.3, AST 38, troponin 0 0.054, BNP at 727, albumin 2.9 and globulin at 4.7. Urinalysis was remarkable for urine urobilinogen at 2.0. The patient was subsequently admitted to the hospitalist service for continuation of care. Due to the complexity of the patient's pulmonary status, a pulmonary consultation was requested. Empiric antibiotics, inhaled bronchodilators, intravenous corticosteroids were initiated. Blood cultures were obtained in the ED and sent for analysis. Patient's electrolyte deficits were corrected. On May 21, 2017, the patient was evaluated by pulmonology and recommendations were given. On May 22, 2017 the patient underwent therapeutic bronchoscopy with lavage with washings sent for culture; which was significant for chronic obstructive pulmonary disease with bronchitis and mucous plugging. Antibiotic, inhaled bronchodilators, and intravenous corticosteroids were continued. The patient's condition gradually improved. The patient's condition is stable. She has not experienced any significant overnight events. Today, we feel that she is indeed appropriate for discharge to follow-up with her primary care physician and environmental department manager as directed. Spoke to patient in great detail regarding the need to refrain from current nicotine use. Patient verbalizes understanding however he voices no desire to abstain.Her vitals are stable,she will be asked to skip coumadin dose for 2days and recheck INR on Sunday the .She will follow with PCP in 1week and Pulm as scheduled. Specialty Discharge - Follow Up or Referrals Discharge Plan - Discharge Data Disposition: Disch To Home/Self Care - Discharge Medications New Albuterol/Ipratropium Neb [Duoneb] 3 ml RESP TX RT Q4H PRN PRN Reason: Shortness Of Breath/Wheezing predniSONE TAB [PredniSONE] See Taper PO DAILY #10 tablet Levofloxacin Tab [Levaquin Tab] 750 mg PO DAILY #10 tablet Acetaminophen Tab [Tylenol Tab] 325 mg PO Q4H PRN tablet PRN Reason: fever, headache/body aches Arformoterol Neb [Brovana] 15 mcg RESP TX RT BID Continue Escitalopram [Lexapro] 10 mg PO DAILY Furosemide 40 mg PO DAILY Amiodarone HCl 200 mg PO DAILY Warfarin Sodium 2 mg PO DAILY Fludrocortisone [Florinef] 0.1 mg PO DAILY Pantoprazole Tab [Protonix Tab] 40 mg PO DAILY Temazepam 30 mg PO BEDTIME - Follow Up or Referral - Forms/Instructions Instructions: Chronic Obstructive Pulmonary Disease (ED) Exam - Constitutional Vitals: Period Temp Pulse Resp BP Sys/Schreiber Pulse Ox Last 24 Hr 95.3 F-97.6 F 60-67 16-20 107-160/58-76 89-98 Discharge Results Procedures and tests throughout hospitalization: Pending Orders 05/20/17 22:19 Blood Culture Stat Labs on day of discharge: Labs from last 24 hours 05/24/17 05/23/17 06:35 11:10 INR 3.5 2.9 PT Patient/Control Mix 40.4 D 33.4 D Preliminary micro results at discharge 05/20/17 22:19 Blood Culture - Preliminary Blood No growth at 3 days 05/20/17 22:18 Blood Culture - Preliminary Blood No growth at 3 days DS: Provider Date of admission: 05/21/17 01:02 Primary care physician: Renea Cates, Attending physician on admission: Anshul Sepulveda MD Consults: 05/21/17 01:02 Consult to Physician [CONS] Routine Comment: Consulting Provider: Person Notified: AWARE Date Notified: 05/21/17 Time Notified: 11:07 Consult to Physician [CONS] Routine Comment: Consulting Provider: Patrick Douglass Person Notified: AWARE Date Notified: 05/21/17 Time Notified: 09:00 Discharging clinician: Marshal Mullins CNP <Denise Fernandes - Last Filed: 05/24/17 11:57> Hospital Course - Time spent with patient Time with patient DS: Greater than 30 minutes (Time spent greater than 35mins) Diagnosis - Discharge Diagnosis (1) Pneumonia Status: Acute (2) Acute exacerbation of chronic obstructive pulmonary disease (COPD) Status: Acute (3) Protein S deficiency Status: Chronic (4) History of atrial fibrillation Status: Chronic (5) Esophageal motility disorder Status: Chronic (6) Lupus Status: Acute (7) Anxiety and depression Status: Chronic Discharge Plan - Discharge Data Condition at Discharge: Stable Activity: resume usual activities as tolerated - Forms/Instructions Additional Discharge Instructions: Skip coumadn x 2days, recheck INR on Sunday the . Follow with PCP in 1week, Pulmonology as scheduled. Exam - Constitutional General appearance: no acute distress - Head Head exam: Present: normal inspection - Respiratory Respiratory exam: Present: clear to auscultation bilaterally - Cardiovascular Cardiovascular exam: Present: regular rate and rhythm - GI/Abdominal GI/Abdominal exam: Present: normal bowel sounds - Extremities Exam Extremities exam: Present: normal inspection - Neurological Exam Neurological exam: Present: alert, oriented X3
--- NOTE | 2017-05-24 09:47 | Pulmonology Progress Note ---
Pulmonary - PN: Subj Interval history: The patient is an 81-year-old that has COPD and some chronic heart disease. She came in with shortness of breath and bibasilar infiltrates. She has achalasia and had her esophagus injected last week with Botox. She has had trouble swallowing off and on for quite some time. She comes in now with some coughing and congestion and feels like she is plugged up some degree. Yesterday we did a therapeutic bronchoscopy but her mucous plugging was not severe. She continued with her treatment yesterday and is feeling better today. She says she is not coughing as much and her shortness of breath is much better. Her vital signs are stable. She looks like she is quite comfortable now. Exam (Progress Note) - Constitutional Vitals: Period Temp Pulse Resp BP Sys/Schreiber Pulse Ox Last 24 Hr 95.3 F-97.0 F 60-91 16-20 107-160/58-76 89-100 Exam: General appearance: normal weight, no acute distress (She is breathing comfortably at present. She looks like she feels better today.) - Head Head exam: Present: normal inspection, normocephalic - Eye Eye exam: Present: EOMI. Absent: scleral icterus Pupils: Present: CELIO - ENT ENT exam: Present: normal exam - Neck Neck exam: Absent: lymphadenopathy, thyromegaly - Respiratory Respiratory exam: She has fair breath sounds bilaterally with prolonged expiration but not much wheezing now. His lungs do sound a little clearer today. - Cardiovascular Cardiovascular exam: Present: regular rate and rhythm. Absent: gallop, systolic murmur - GI/Abdominal GI/Abdominal exam: Present: normal bowel sounds, soft. Absent: organomegaly, tenderness - Extremities Exam Extremities exam: Present: Her leg swelling is actually better now. - Neurological Exam Neurological exam: Present: alert, oriented X3, CN II-XII intact, no focal deficits - Psychiatric Psychiatric exam: Present: normal affect, normal mood - Skin Skin exam: Present: warm, dry Results - Labs CBC & BMP: 05/23/17 05:24 05/23/17 05:24 Assessment and Plan (1) Acute exacerbation of chronic obstructive pulmonary disease (COPD) Status: Acute Assessment and plan: The patient comes in with coughing and shortness of breath and she feels like she is plugged up like she was in the past. She does have trouble clearing thick secretions. She says she still coughing some. She did not have that much mucus plugging on bronchoscope. She has continued to do better and her breathing is better now. Her coughing is much improved. She feels like she can go home today. Current Visit: Yes (2) Anticoagulant long-term use Status: Chronic Assessment and plan: She is chronically on Coumadin. Her INR is 2.0. Current Visit: No (3) History of atrial fibrillation Status: Chronic Assessment and plan: She has a pacemaker and takes amiodarone therapy. She is in a sinus rhythm now. Current Visit: No (4) Protein S deficiency Status: Chronic Assessment and plan: She has had a problem with chronic clotting. Current Visit: No (5) Esophageal motility disorder Status: Chronic Assessment and plan: She has achalasia and had an EGD last week with Botox injections. She frequently has trouble swallowing. She feels like her swallowing is better now. Current Visit: No (6) Lupus Status: Chronic Assessment and plan: She is not having any problems with lupus at present. Current Visit: No Specialty Discharge - Follow Up or Referrals
[2017-05-24] MEDS: PANTOPRAZOLE 40 MG TABLET PO SCH (10:00)
[2017-05-24] MEDS: DOXYCYCLINE HYCLATE 100 MG CAPSULE PO SCH (10:00)
[2017-05-24] MEDS: POTASSIUM CHLORIDE 10 MEQ TABLET PO SCH (10:00)
[2017-05-24] MEDS: FUROSEMIDE 40 MG/4 ML VIAL IV SCH (10:01)
[2017-05-24] MEDS: AMIODARONE 200 MG TABLET PO SCH (10:01)
[2017-05-24 11:51] VITALS: BP 171/89
== END 2017-05-24 13:25 | disposition home or self-care (01) | DRG 166 ==
LOC: N.ED 21:00 → N.EDINP 05-21 01:02 → SUATTDRO 05-21 01:02 → N.5E 05-21 01:58
PROVIDERS: ADMIT Emergency Medicine; ATTEND Internal Medicine

== ENCOUNTER 2017-06-21 12:52 | Inpatient (IN) ==
[2017-06-21] MEDS ORDERED: SODIUM CHLORIDE 0.9% 500 ML IV STA (14:16)
--- NOTE | 2017-06-21 14:45 | CT Report ---
CT of the cervical spine without contrast. Indication: Fall, injury, and pain. Axial images were obtained with sagittal and coronal 2-D reconstructions. No prior studies. Heavy carotid and vertebral artery calcification is present. There are severe pulmonary findings in both lung apices. The osseous structures are severely demineralized. Degenerative changes are noted at the temporomandibular joints. There is by fluid in the mastoid air cells bilaterally. The normal curvature of the cervical spine is demonstrated. Appropriate alignment is seen throughout. There is no loss of vertebral body height or significant loss of disc space height. There is some calcification within the anterior longitudinal ligament. Degenerative changes are noted, most prominent at C5-C6 and C6-C7, and also at the articulation between the odontoid and the anterior ring of C1. Facet arthropathy is also present. Impression: No evidence of acute cervical spine fracture. The CT exam was performed using one or more of the following dose reduction techniques: Automated exposure control, adjustment of the mA and/or kV according to patient size, or use of iterative reconstruction technique. PROCEDURE INTERPRETED AT [facility] DEPARTMENT OF RADIOLOGY Final Report Signed by: Dr. Jessica Patel
--- NOTE | 2017-06-21 14:59 | XRay Report ---
Left thumb, 3 views. Indication: Fall, injury, and pain. There is an acute horizontal fracture through the mid shaft of the left first distal phalanx with mild displacement. The articular surface is not involved. There is associated soft tissue swelling. No dislocation. Degenerative changes noted at the wrist. Impression: Acute fracture of the left first distal phalanx. PROCEDURE INTERPRETED AT [facility] DEPARTMENT OF RADIOLOGY Final Report Signed by: Dr. Jessica Patel
[2017-06-21 15:02] LABS: Basophils % 0.3 % (0.0-0.8); Eosinophils # 0.1 10*3/uL (0.0-0.87); Eosinophils % 0.9 % (0.00-10.9); Hematocrit 35.8 VOL% (35.7-47.0); Hemoglobin 11.1 GM/DL (12.0-16.0); Immature Granulocytes % 0.3 %; Immature Granulocytes Absolute 0.03 #; Lymphocytes # 2.3 10*3/uL (1.4-4.0); Lymphocytes % 24.1 % (21.3-54.2); Mean Corpuscular Hemoglobin 26 PG (27-34); Mean Platelet Volume 10.6 FL (9.6-12.0); Monocytes # 1.2 10*3/uL (0.11-0.8); Monocytes % 12.7 % (1.7-12.7); Neutrophils % 61.7 % (38.7-73.9); Platelet Count 288 T/CUMM (130-400); Red Blood Count 4.26 MC/CUMM (3.8-5.5); Red Cell Distribution Width 17.9 % (9.3-17.3); White Blood Count 9.7 T/CUMM (4-12)
--- NOTE | 2017-06-21 15:02 | XRay Report ---
PA chest with right rib detail. Indication: Fall, injury, and pain. Comparison: June 23, 2017. The cardiac silhouette is enlarged. The lung ag are hyperexpanded. Cardiac hardware is in satisfactory position. No pneumothorax is seen. There is a stable right-sided pleural effusion. There is right mid and lower lung field atelectasis. There is improvement in aeration of the left lung base. A severe abnormal interstitial pattern is again demonstrated bilaterally. The osseous structures are severely demineralized. No acute rib fracture is seen. Impression: Chronic lung changes. Right mid and lower lung field atelectasis. Persistent right pleural effusion. No definite rib fracture identified. PROCEDURE INTERPRETED AT [facility] DEPARTMENT OF RADIOLOGY Final Report Signed by: Dr. Jessica Patel
--- NOTE | 2017-06-21 15:06 | CT Report ---
CT head/brain wo con INDICATION: Syncope The total DLP is 1081 mGy*cm. COMPARISON: MRI brain dated 07/21/2012 Technique: Serial axial tomographic images of the brain were obtained without the use of intravenous contrast. Dose reduction: This CT exam was performed using one or more of the following dose reduction techniques: Automated exposure control, automated adjustment of the mA and/or KV according to patient size, or use of iterative reconstruction technique. Findings: Mild generalized atrophy is noted with mild prominence of the sulci and cortical volume loss. Periventricular white matter hypodensity changes are noted bilaterally which do not demonstrate mass effect and are nonspecific but favored to represent sequela of chronic microvascular ischemia. There is no evidence of vascular territory infarct or acute intracranial hemorrhage. The holman-white matter differentiation is generally maintained. There is no hydrocephalus. The basilar cisterns are patent. The visualized paranasal sinuses, mastoid air cells and middle ear cavities are predominantly clear. The included orbits and their contents appear within normal limits. The visualized osseous structures and overlying soft tissues of the skull and face demonstrate no acute abnormality. IMPRESSION: No acute intracranial abnormality. Bilateral periventricular white matter hypodensities are nonspecific but favored to represent sequela of chronic microvascular ischemia, which are somewhat progressed from the 2012 MRI. If there is continued clinical concern for stroke, MRI would be recommended. Mild generalized atrophy. PROCEDURE INTERPRETED AT [facility] DEPARTMENT OF RADIOLOGY Final Report Signed by: Albert Monte
--- NOTE | 2017-06-21 15:08 | EKG Report ---
Stationary ECG Study [facility] ER Test Date: 06/21/2017 3:06:48 PM Pat Name: JAY MONTOYA Department: Room: Gender: F Housing Director: : 1935 Requested by: Sam Mix Order Number: [id number] Reading MD: SCOTTIE THOMAS Intervals [place] Rate: 67 P: 67 LA: 209 QRS: 114 QRSD: 84 T: 120 QT: 429 QTc: 444 Interpretive Statements ELECTRONIC ATRIAL PACEMAKER POSSIBLE RIGHT VENTRICULAR HYPERTROPHY LEFT VENTRICULAR HYPERTROPHY AND ST-T CHANGE FREQUENT VENTRICULAR COMPLEXES IN A BIGEMINAL PATTERN Electronically Signed On 06-23-17 18:02:44 CDT by SCOTTIE THOMAS [email or web address]
[2017-06-21] MEDS ORDERED: DIPH/TET/ACEL PERT BOOSTER VACCINE 0.5 ML VIAL IM ONE ×2 (15:13→15:31)
[2017-06-21 15:14] LABS: INR 4.5
[2017-06-21 15:19] LABS: PT Patient Result 47.2 SECS
[2017-06-21 15:27] LABS: Albumin 2.6 G/DL (3.4-5.0); Calcium 8.2 MG/DL (8.5-10.1); Magnesium 1.9 MG/DL (1.8-2.4); Osmolality,Calculated 278.5 MOS/KG (273-304); Potassium 2.8 MMOL/L (3.5-5.1); Total Protein 6.3 G/DL (6.4-8.3); Troponin I Only 0.048 NG/ML (0.00-0.045)
[2017-06-21] MEDS ORDERED: ceFAZolin 1,000 MG VIAL ONE (15:31)
[2017-06-21] MEDS ORDERED: POTASSIUM CHLORIDE 20 MEQ TABLET PO STA (15:40)
[2017-06-21] MEDS ORDERED: POTASSIUM CHLORIDE 20 MEQ TABLET PO ONE (15:45)
[2017-06-21] MEDS ORDERED: POTASSIUM CHLORIDE RIDER 100 ML IV ONE (16:12)
[2017-06-21] MEDS ORDERED: FUROSEMIDE 40 MG/4 ML VIAL IV STA (16:12)
[2017-06-21] MEDS ORDERED: ALBUTEROL/IPRATROPIUM 3 ML NEB RESP TX STA (16:12)
[2017-06-21] MEDS ORDERED: POTASSIUM CHLORIDE RIDER 10 MEQ in PREMIX 1 EACH IV ONE (16:30)
--- NOTE | 2017-06-21 16:30 | Emergency Department Note ---
Royal Iglesias Manpreet, am scribing for, and in the presence of, Sam Vazquez MD 13:57. George Iglesias Charles R, MD, personally performed the services described in this documentation, ascribed by Noah Paige in my presence, and it is both accurate and complete 630 . Arrival - Arrival Chief Complaint: Syncope Stated Complaint: FALL ED Nursing Triage Note: PT BROUGHT FROM HOME BY EMS FOR EVALUATION OF SYNCOPAL EPISODE. PT AND FAMILY REPORT RECURRENT SYNCOPAL EPISODES OF UNKNOWN ETIOLOGY FOLLOWED BY A NEUROLOGIST. PT C/O PAIN TO LEFT THUMB, AND RIGHT SIDE/RIBS. STATES PAINFUL TO TAKE DEEP BREATHS. FENTANYL 100MCG GIVEN PER EMS Mode of Arrival: Stretcher Source: Patient Time Seen by Provider: 06/21/17 13:32 - History of Present Illness HPI Narrative: Pt is a 81 y/o female, with PMHx of CHF, PVD, migraine, bronchitis, COPD, PNA, and GERD, who is brought to the ED for further evaluation after having a syncopal episode and falling on the floor. Pt states she does not know what happened and hit the floor with her head and landed on her right ribs. Pt c/o pain to her left thumb, right ribs, and pain when taking deep breaths. Pt states she has had syncope episodes before and follows with a neurologist. Pt reports of being on Coumadin. Pt denies any LOC, back pain, neck pain and leg pain. No other pains/complaints reported to the ED. Onset (ago): hour(s) Consistency: constant Severity: moderate Allergies/Adverse Reactions: Allergies Allergy/AdvReac Type Severity Reaction Status Date / Time No Known Allergies Allergy Verified 06/21/17 13:07 Home Medications: Home Medications Medication Instructions Recorded Confirmed Type Amiodarone HCl 200 mg PO QAM 05/21/17 06/21/17 History Escitalopram [Lexapro] 10 mg PO QPM 05/21/17 06/21/17 History Furosemide 40 mg PO QAM 05/21/17 06/21/17 History Pantoprazole Tab [Protonix Tab] 40 mg PO QAM 05/21/17 06/21/17 History Temazepam 30 mg PO BEDTIME 05/21/17 06/21/17 History Warfarin Sodium 2 mg PO BEDTIME 05/21/17 06/21/17 History Acetaminophen Tab [Tylenol Tab] 325 mg PO Q4H PRN tablet 05/24/17 06/21/17 Rx Albuterol/Ipratropium Neb [Duoneb] 3 ml RESP TX RT Q4H PRN 05/24/17 06/21/17 Rx Arformoterol Neb [Brovana] 15 mcg RESP TX RT BID 05/24/17 06/21/17 Rx Review of System - Review of System 12 point system: reviewed and no additional remarkable complaints except as stated - Review of System Constitutional: Absent: chills, diaphoresis, fever Respiratory: Absent: cough Cardiovascular: Present: chest pain (Right rib pain) Gastrointestinal: Absent: abdominal pain, nausea, vomiting, diarrhea Musculoskeletal: Present: arm pain (Left thumb pain). Absent: back pain, leg pain, neck pain Neurological: Absent: headache, weakness, numbness, paresthesias Medical,Surgical,& Family Hx - Medical History Cardio: History of: Cardiac Dysrhythmia (A-FIB ON COUMADIN), CHF, Pacemaker, PVD (FOR AF ARTERIOGRAM 03/08/15), Cardiovascular Problems (IT ASSOCIATE DR. BARILLAS DUE FOR VISIT MARCH - NEGATIVE WORKUP) No history of: Hypertension (hypotension), [place] Psychological: History of: Anxiety Disorders, Depression (on lexapro) Neurology: History of: Migraine, TIA (X4), Vertigo No history of: Seizures HEENT: History of: Ear Problem (DEAF RT EAR), Eye Problem (GLASSES), HEENT Problems Rheumatology: History of;: Fibromyalgia, Systemic Lupus Erythematosus Respiratory: History of: Bronchitis, COPD (DR. BANUELOS), Obstructive Sleep Apnea (no sleep study), Pneumonia Genitourinary: History of: Recurring Urinary Tract Infections Gastrointestinal: History of: Diverticulitis/ Diverticulosis, GERD, Hemorrhoids (HEMORRHOIDECTOMY), GI Problems (HIATAL HERNIA, botox to esophagus x1, needs again) No history of: Hepatitis, Liver Problems Musculoskeletal: History of: Back/Neck Problems, Degenerative Disk Disease, Herniated Disk, Musculoskeletal Problems (ARTHRITIS and lupus) No history of: Amputation Hematology: History of: Anemia No history of: Blood Transfusion Reaction (GREATER 50 YRS SEVERAL BLOOD TRANSFUSIONS-NO REACTION) Other: History of: 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) - Surgical History Cardiac Surgeries: Sugical HX of: Femoral-Popliteal Bypass Graft (stents to bilat legs), Cardiac Catheterization (x2) Patient Denies: Carotid Endarterectomy Thoracic Surgeries: Patient denies;: Organ Transplant, Lobectomy Neurologic Surgeries: Patient denies: Neurologic Surgery HEENT Surgeries: Surgical HX of: Eye Surgery (CATARACT BILATERALLY) Patient denies: Carotid Endarterectomy, Tonsilectomy & Adenoidectomy Abdominal Surgeries: Surgical HX of: Abdominal Surgery, Appendectomy, Colonoscopy, EGD Patient denies: Cholecystectomy Reproductive Surgeries: Surgical HX of;: Gynecologic Surgery, Hysterectomy (BSO 196) Patient denies;: Breast Surgery, Genitourinary Surgery Orthopedic Surgeries: Patient denies;: Orthopedic Surgery - Family History Family History: Reports;: Family Cancer (MOTHER KIDNEY, BROTHER BONE, and sister ), Family Heart Disease (FATHER OF CHF), Family Hypertension (SISTER), Family Stroke (SISTERS times 3) - Social History Smoking Status: Current every day smoker Frequency of Alcohol Use: None Type of Drug Use: None Exam Vital Signs: Vital Signs Temperature 99.6 F 06/21/17 12:52 Pulse Rate 90 06/21/17 12:52 Respiratory Rate 18 06/21/17 12:52 Blood Pressure 144/57 06/21/17 12:52 O2 Sat by Pulse Oximetry 90 L 06/21/17 12:52 - General General appearance: alert, in no apparent distress - Head Head exam: Present: atraumatic, normocephalic, normal inspection - Eye Eye exam: Present: normal appearance, PERRL, EOMI - ENT ENT exam: Present: normal exam, normal oropharynx, mucous membranes moist, TM's normal bilaterally - Neck Neck exam: Present: normal inspection, full ROM, trachea midline - Chest Chest inspection: Present: symmetric chest wall rise, tenderness (Right mid- axillary tenderness). Absent: normal inspection - Respiratory Respiratory exam: Present: normal lung sounds bilaterally. Absent: respiratory distress - Cardiovascular Cardiovascular exam: Present: regular rate, normal rhythm, normal heart sounds. Absent: murmur, rubs, gallop - Abdominal Exam Abdominal exam: Present: soft, normal bowel sounds. Absent: distention, tenderness, guarding - Extremities Exam Extremities exam: Present: normal inspection, full ROM. Absent: tenderness - Back Exam Back exam: Present: normal inspection, full ROM. Absent: tenderness - Neurological Exam Neurological exam: Present: alert, oriented X3, CN II-XII intact, reflexes normal - Psychiatric Psychiatric exam: Present: normal affect, normal mood - Skin Skin exam: Present: warm, dry, intact, normal color. Absent: pallor Course - Consultations Consultation #1: Hospitalist will admit patient Time: 16:28 Results - Labs CBC & BMP: 06/21/17 14:51 06/21/17 14:51 Lab Results: I have reviewed the patients labs Labs: Laboratory Tests 06/21/17 06/21/17 06/21/17 14:51 14:51 14:51 WBC 9.7 RBC 4.26 Hgb 11.1 L Hct 35.8 MCV 84.0 L MCH 26 L MCHC 31.0 L RDW 17.9 H [place] # (Auto) 1.2 H INR 4.5 PT Patient/Control Mix 47.2 Sodium 139 Potassium 2.8 L Chloride 99 Carbon Dioxide 34 H Creatinine 1.20 H Glucose 108 H Calcium 8.2 L Troponin I 0.048 H Total Protein 6.3 L Albumin 2.6 L Globulin 3.7 H Albumin/Globulin Ratio 0.7 L Laboratory Tests 06/21/17 14:51 B-Natriuretic Peptide 950 H - Diagnostic Findings Procedure: Chest x-ray: report reviewed by me ("X-ray ribs RT with PA chest: Chronic lung changes. Right mid and lower lung field atelectasis. Persistent right pleural effusion. No definite rib fracture indentified."), CT: report reviewed by me ("CT C-spin w/o con: No evidence of acute cervical spine fracture."), X-ray: report reviewed by me ("X-ray finger: Acute fracture of left first distal phalanx.") Disposition Clinical Impression: Vasovagal syncope, Left thumb fracture, Mechanical fall, Contusion of right chest wall, Congestive heart failure, Pacemaker, Hypokalemia, Exertional dyspnea , Chronic anticoagulation, At risk for fall due to comorbid condition, History of COPD, Shortness of breath, Atrial fibrillation, unsteady gait, Abrasion right arm Case discussed with: patient, patient's family Disposition: Still a Patient Condition: Stable Time of Disposition: 16:30
[2017-06-21] MEDS ORDERED: FUROSEMIDE 40 MG/4 ML VIAL ONE (16:32)
[2017-06-21] MEDS ORDERED: MAGNESIUM SULF RIDER 2 GM in PREMIX 1 EACH IV ONE (16:38)
--- NOTE | 2017-06-21 16:48 | Hospitalist Progress Note ---
Assessment and Plan (1) Vasovagal syncope Status: Acute Assessment and plan: The patient appears to have had a vagal spell due to mild dehydration. The patient's chest x-ray reveals no evidence of pulmonary edema and lung water appears to be less than on previous evaluations. We will admit the patient to hospital for cardiac monitoring and obtain pulmonary consultation. The patient will have mild rehydration. Current Visit: Yes (2) Atrial fibrillation Status: Acute Current Visit: Yes (3) Chronic anticoagulation Status: Acute Current Visit: Yes (4) Contusion of right chest wall Status: Acute Current Visit: Yes (5) Hypokalemia Status: Acute Current Visit: Yes (6) Pacemaker Status: Acute Current Visit: Yes Hospitalist: Subjective Interval history: Mrs. Valdez is an 81-year-old lady with history of chronic lung disease and systolic congestive heart failure with biventricular pacemaker placement. The patient was at home in her usual state of health. She arose this morning and got up from her bed. She was walking across the floor when she had a fainting episode which dropped her to the floor. She injured her right chest and has chest wall soreness. The patient's symptom has not recurred. She has been supine. The patient's weak spell was sudden in onset, severe and quality, and not associated with fever chills or shortness of breath. The patient's dyspnea is at baseline and she has been compliant with medication. Exam - Constitutional Vitals: Period Temp Pulse Resp BP Sys/Schreiber Pulse Ox Last 24 Hr 99.6 F-99.6 F 60-90 16-20 144-144/57-57 90-100 Exam: Constitutional System: Mild distress on account of chest wall discomfort. No tremulousness. Head: Normocephalic, atraumatic. Ears, Nose and Throat System: No evidence of Otitis or Mastoiditis. No epistaxis or discharge Eyes System: Pupils equal, round, and reactive. Extraocular muscles intact. Neck: Supple, without adenopathy, No jugular venous distention. No thyromegaly , neck mass. Pacemaker apparent in left subclavian pocket Respiratory System: Chest with severe air trapping to auscultation. Cardiovascular System: Heart with regular rate and rhythm. No murmur. GI System: Abdomen soft, nontender. Normo active bowel sounds present. Musculoskeletal System: limbs with no pedal edema. Full distal pulses. Neurological System: No discernable sensory deficit. No aphasia Psychiatric System: Conversation is rational Results - Labs CBC & BMP: 06/21/17 14:51 06/21/17 14:51 Lab Results: I have reviewed the past 24 hour labs
[2017-06-21 16:50] LABS: Apearance,Urine Slightly Hazy (Clear); Bilirubin,Urine Negative (Negative); Blood, Urine Negative (Negative); Glucose,Urine (UA) Negative (Negative); Hyaline Casts,Urine 4 /LPF (0-3); Ketones,Urine Negative (Negative); Mucus,Urine Occasional /LPF (Occasional); Nitrite,Urine Negative (Negative); Protein,Urine Negative; RBC,Urine 3 /HPF (0-4); Squamous Epithelial Cell,Urine Occasional /HPF (0-10); Urine Specific Gravity 1.012 (1.001-1.035); WBC,Urine 1 /HPF (0-6)
[2017-06-21 16:53] LABS: Urine Color Yellow (Yellow)
[2017-06-21] MEDS ORDERED: ONDANSETRON 4 MG/2 ML VIAL IV PRN (18:27)
[2017-06-21] MEDS ORDERED: ALBUTEROL/IPRATROPIUM 3 ML NEB RESP TX PRN (18:27)
[2017-06-21] MEDS ORDERED: ACETAMINOPHEN 325 MG TABLET PO PRN (18:27)
[2017-06-21] MEDS: ARFORMOTEROL 15 MCG/2 ML NEB RESP TX SCH (20:02)
[2017-06-21] MEDS: POTASSIUM CHLORIDE 20 MEQ TABLET PO SCH ×4 (21:20→23:40)
[2017-06-21] MEDS: SODIUM CHLORIDE 0.9% 1,000 ML IV SCH (21:23)
[2017-06-21] MEDS: ESCITALOPRAM 10 MG TABLET PO SCH (21:23)
[2017-06-21] MEDS: TEMAZEPAM 15 MG CAPSULE PO PRN (21:23)
[2017-06-22] MEDS: POTASSIUM CHLORIDE 20 MEQ TABLET PO SCH ×2 (02:05→06:00)
[2017-06-22 05:00] LABS: INR 4.6
[2017-06-22 05:02] LABS: Basophils % 0.4 % (0.0-0.8); Eosinophils % 0.7 % (0.00-10.9); Hematocrit 28.9 VOL% (35.7-47.0); Immature Granulocytes % 0.4 %; Immature Granulocytes Absolute 0.02 #; Lymphocytes % 17.8 % (21.3-54.2); Mean Corpuscular HGB Conc 30.8 GM/DL (32-36); Mean Corpuscular Hemoglobin 26 PG (27-34); Mean Corpuscular Volume 85.5 FL (87-102); Mean Platelet Volume 11.5 FL (9.6-12.0); Monocytes # 0.8 10*3/uL (0.11-0.8); Monocytes % 14.3 % (1.7-12.7); Neutrophils # 3.7 10*3/uL (1.4-7.4); Neutrophils % 66.4 % (38.7-73.9)
[2017-06-22 05:04] LABS: Hemoglobin 8.9 GM/DL (12.0-16.0); Platelet Count 210 T/CUMM (130-400); Red Blood Count 3.38 MC/CUMM (3.8-5.5); White Blood Count 5.5 T/CUMM (4-12)
[2017-06-22 05:10] LABS: PT Patient Result 49.2 SECS
[2017-06-22 05:20] LABS: Band Neutrophils 1 % (0-10); Lymphocytes 17 % (20-55); Platelet Estimate Normal; Segmented Neutrophils 70 % (50-85); Total Cells Counted 100
[2017-06-22 05:21] LABS: Anisocytosis 2+; Hypochromasia 2+; Macrocytosis 2+
[2017-06-22 05:30] LABS: Calcium 8.1 MG/DL (8.5-10.1); Magnesium 2.4 MG/DL (1.8-2.4); Osmolality,Calculated 282.3 MOS/KG (273-304); Potassium 3.8 MMOL/L (3.5-5.1); Troponin I Only 0.034 NG/ML (0.00-0.045)
--- NOTE | 2017-06-22 07:29 | XRay Report ---
Exam: XR chest 2V Date: 06/22/2017 4:00 AM Indication: Dyspnea Comparison: 06/21/2017 Technical: PA lateral Findings: Low volume effusions present on the right and the left. Underlying COPD and scarring is present. Mild cardiomegaly present. External cardiac leads oxygen tubing and cardiac pacing device leads are present. Some bony demineralization is noted. Shunt vascularity is present. Impression: 1. Cardiomegaly with cardiac decompensation and shunt vascularity low volume effusions right greater than left superimposed on COPD changes 2. Stable position of the left-sided cardiac pacing device with atrial ventricular leads. PROCEDURE INTERPRETED AT [facility] DEPARTMENT OF RADIOLOGY Final Report Signed by: Dr. Jt Thorne
[2017-06-22] MEDS: ARFORMOTEROL 15 MCG/2 ML NEB RESP TX SCH ×2 (07:36→19:40)
[2017-06-22] MEDS: AMIODARONE 200 MG TABLET PO SCH (09:29)
[2017-06-22] MEDS: PANTOPRAZOLE 40 MG TABLET PO SCH (09:30)
[2017-06-22] MEDS: methylPREDNISolone SOD SUC 40 MG/1 ML VIAL IV SCH ×2 (09:35→17:27)
--- NOTE | 2017-06-22 10:59 | Hospitalist Progress Note ---
Assessment and Plan (1) Orthostasis Status: Chronic Assessment and plan: Recurrent episodes of upright syncope associated with clinical volume contraction chronic use of Lasix and Florinef. 2016 normal left ventricular ejection fraction with pulmonary hypertension. Syncopal fall with blunt trauma to the right rib and fracture of the left thumb Current Visit: Yes (2) History of COPD Status: Chronic Assessment and plan: Pulmonary fibrosis associated with tobacco use. Recent hospitalization with mucoid impaction and exacerbation of COPD. Moderate pulmonary hypertension on echocardiography. Current Visit: Yes (3) Pacemaker Status: Chronic Assessment and plan: History of paroxysmal atrial fibrillation with dual-chamber pacing device and pressure placed. Chronic suppressive therapy with amiodarone. Chronic anticoagulation with prolonged INR. Note is made of decrease in her hemoglobin level compared to admission Current Visit: Yes Hospitalist: Subjective Interval history: 81-year-old female with chronic obstructive pulmonary disease with an echocardiogram in 2016 showing normal LV function with a right ventricular systolic pressure of 60-65 mmHg is chronically maintained on a stable dose of Lasix. Home medication list also includes Florinef and she gives a history of positional loss of consciousness. She is on chronic amiodarone and Coumadin with a dual-chamber pacing device for atrial fibrillation. She is seeing no gross bleeding. She describes oral intake is being uninterrupted she has had no vomiting no diarrhea. She was admitted to the hospital once again following an apparent syncopal episode. She sustained a fracture to the left thumb and blunt trauma to the right ribs. Her admitting EKG showed sinus rhythm with possible right ventricular hypertrophy type a with bigeminal PVCs. Subsequently her rhythm has been sinus throughout. Her vital signs are stable overnight she has localized pain in the right rib area. Extensive imaging studies last evening demonstrated no other injuries to the patient she had just been discharged from here on 24 May following a hospitalization for exacerbation of her COPD with bronchoscopy showing mucus impaction. At discharge she had received a tapering course of prednisone with resumption of her home medications. Exam - Constitutional Vitals: Period Temp Pulse Resp BP Sys/Schreiber Pulse Ox Last 24 Hr 96.2 F-99.6 F 60-90 16-20 99-167/50-69 90-100 General appearance: under weight - Respiratory Respiratory exam: Present: clear to auscultation bilaterally, other (Decreased breath sounds at the right base associated with splinting). Absent: rales, rhonchi, wheezes - Cardiovascular Cardiovascular exam: Present: regular rate and rhythm - GI/Abdominal GI/Abdominal exam: Present: normal bowel sounds. Absent: distended, tenderness - Extremities Exam Extremities exam: Absent: edema - Neurological Exam Neurological exam: Present: alert, oriented X3 Results - Labs CBC & BMP: 06/22/17 03:41 06/22/17 03:41 Labs: INR 4.6 Cardiac troponin on 0.034 - Diagnostic Findings Procedure: Chest x-ray: image reviewed by me (Dual-chamber pacing device. Bilateral reticular fibrotic changes.) Quality Measures - VTE Contraindication to Pharmacological VTE Prophylaxis: Already on Theraputic Agent , No Prophylaxis Needed
[2017-06-22 11:58] LABS: % Iron Saturation 5.8 % (18-50)
[2017-06-22] MEDS ORDERED: PHYTONADIONE 5 MG TABLET PO ONE (12:00)
[2017-06-22] MEDS: FLUDROCORTISONE 0.1 MG TABLET PO SCH (12:07)
--- NOTE | 2017-06-22 15:18 | Pulmonology Consult Note ---
Assessment and Plan (1) COPD exacerbation Status: Acute Assessment and plan: Patient has significant COPD and has a little trouble with her breathing now. We will continue with respiratory therapy and a little bit of steroids. Current Visit: No (2) Lupus Status: Acute Assessment and plan: She is not having problems with lupus at present. Current Visit: No (3) Vasovagal syncope Status: Acute Assessment and plan: She blacked out and is not clear exactly why at present Current Visit: Yes (4) Contusion of right chest wall Status: Acute Assessment and plan: The patient bruised her chest wall and is a little sore now. Current Visit: Yes (5) Congestive heart failure Status: Acute Assessment and plan: Her x-ray suggests a little bit of heart failure now. Current Visit: Yes (6) Pacemaker Status: Chronic Assessment and plan: The patient does have a pacemaker. Current Visit: Yes History of Present Illness Chief complaint: Syncope History of present illness: Ms. Valdez is a 81 year old white female that has a long history of medical problems. She has significant COPD along with a cardiomyopathy. She has had problems with atrial fibrillation and other arrhythmias. She does have a pacemaker in place. She is a lifelong smoker. She is felt to have lupus with chronic coagulation problems. She has problems with achalasia and at times has difficulty swallowing. She says she has had a little more problems lately and may not be eating that well. She got up yesterday morning and blacked out. She does not remember what happened. She had an injury to her hand and has a sore right rib cage. She has been having a little trouble breathing lately. She always has trouble clearing secretions. She is also had heart failure in the past. Home Medications Medication Instructions Recorded Confirmed Type Amiodarone HCl 200 mg PO QAM 05/21/17 06/21/17 History Escitalopram [Lexapro] 10 mg PO QPM 05/21/17 06/21/17 History Furosemide 40 mg PO QAM 05/21/17 06/21/17 History Pantoprazole Tab [Protonix Tab] 40 mg PO QAM 05/21/17 06/21/17 History Temazepam 30 mg PO BEDTIME 05/21/17 06/21/17 History Warfarin Sodium 2 mg PO BEDTIME 05/21/17 06/21/17 History Acetaminophen Tab [Tylenol Tab] 325 mg PO Q4H PRN tablet 05/24/17 06/21/17 Rx Albuterol/Ipratropium Neb [Duoneb] 3 ml RESP TX RT Q4H PRN 05/24/17 06/21/17 Rx Arformoterol Neb [Brovana] 15 mcg RESP TX RT BID 05/24/17 06/21/17 Rx Fludrocortisone [Florinef] 0.1 mg PO DAILY 06/21/17 06/21/17 History Allergies Allergy/AdvReac Type Severity Reaction Status Date / Time No Known Allergies Allergy Verified 06/21/17 13:07 - Constitutional Constitutional: Present: fatigue, weakness, weight loss. Absent: chills, fever( s) - EENT Eyes: Absent: loss of vision Ears: Absent: decreased hearing Nose, mouth and throat: Present: dysphagia, hoarseness. Absent: headache(s) - Cardiovascular Cardiovascular: Present: chest pain at rest, dyspnea on exertion, orthopnea, palpitations. Absent: edema - Respiratory Respiratory: Present: cough, dyspnea, wheezing - Gastrointestinal Gastrointestinal: Present: dysphagia. Absent: abdominal pain, change in bowel habits, nausea, vomiting - Genitourinary Genitourinary: Absent: dysuria, hematuria, urinary frequency - Musculoskeletal Musculoskeletal: Present: arthralgias - Neurological Neurological: Present: syncope. Absent: abnormal speech, focal weakness Exam (Pulmonay) H&P - Constitutional Vitals: Period Temp Pulse Resp BP Sys/Schreiber Pulse Ox Last 24 Hr 96.2 F-98.4 F 60-71 16-20 99-167/50-69 90-100 General appearance: no acute distress, under weight, other (Patient looks reasonably comfortable.) - Head Head exam: Present: normal inspection, normocephalic - Eye Eye exam: Present: EOMI. Absent: scleral icterus Pupils: Present: CELIO - ENT ENT exam: Present: normal exam - Neck Neck exam: Present: normal inspection. Absent: lymphadenopathy, thyromegaly - Respiratory Respiratory exam: Present: prolonged expiratory phase, rales, rhonchi. Absent: accessory muscle use - Cardiovascular Cardiovascular exam: Present: regular rate and rhythm, systolic murmur. Absent : gallop, tachycardia - GI/Abdominal GI/Abdominal exam: Present: normal bowel sounds, soft. Absent: organomegaly, tenderness - Extremities Exam Extremities exam: Absent: calf tenderness, edema - Neurological Exam Neurological exam: Present: alert, oriented X3, CN II-XII intact - Psychiatric Psychiatric exam: Present: normal affect - Skin Skin exam: Present: warm, dry Medical,Surgical,& Family Hx - Medical History Cardio: History of: Cardiac Dysrhythmia (A-FIB ON COUMADIN), CHF, Pacemaker, PVD (FOR AF ARTERIOGRAM 03/08/15), Cardiovascular Problems (WELDER DR. BARILLAS DUE FOR VISIT MARCH - NEGATIVE WORKUP) No history of: Hypertension (hypotension), PA Psychological: History of: Anxiety Disorders, Depression (on lexapro) Neurology: History of: Migraine, TIA (X4), Vertigo No history of: Seizures HEENT: History of: Ear Problem (DEAF RT EAR), Eye Problem (GLASSES), HEENT Problems Rheumatology: History of;: Fibromyalgia, Systemic Lupus Erythematosus Respiratory: History of: Bronchitis, COPD (DR. BANUELOS), Obstructive Sleep Apnea (no sleep study), Pneumonia Genitourinary: History of: Recurring Urinary Tract Infections Gastrointestinal: History of: Diverticulitis/ Diverticulosis, GERD, Hemorrhoids (HEMORRHOIDECTOMY), GI Problems (HIATAL HERNIA, botox to esophagus x1, needs again) No history of: Hepatitis, Liver Problems Musculoskeletal: History of: Back/Neck Problems, Degenerative Disk Disease, Herniated Disk, Musculoskeletal Problems (ARTHRITIS and lupus) No history of: Amputation Hematology: History of: Anemia No history of: Blood Transfusion Reaction (GREATER 50 YRS SEVERAL BLOOD TRANSFUSIONS-NO REACTION) Other: History of: 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) - Surgical History Cardiac Surgeries: Sugical HX of: Femoral-Popliteal Bypass Graft (stents to bilat legs), Cardiac Catheterization (x2) Patient Denies: Carotid Endarterectomy Thoracic Surgeries: Patient denies;: Organ Transplant, Lobectomy Neurologic Surgeries: Patient denies: Neurologic Surgery HEENT Surgeries: Surgical HX of: Eye Surgery (CATARACT BILATERALLY) Patient denies: Carotid Endarterectomy, Tonsilectomy & Adenoidectomy Abdominal Surgeries: Surgical HX of: Abdominal Surgery, Appendectomy, Colonoscopy, EGD Patient denies: Cholecystectomy Reproductive Surgeries: Surgical HX of;: Gynecologic Surgery, Hysterectomy (BSO 1961) Patient denies;: Breast Surgery, Genitourinary Surgery Orthopedic Surgeries: Patient denies;: Orthopedic Surgery - Family History Family History: Reports;: Family Cancer (MOTHER KIDNEY, BROTHER BONE, and sister ), Family Heart Disease (FATHER OF CHF), Family Hypertension (SISTER), Family Stroke (SISTERS times 3) - Social History Smoking Status: Current every day smoker Frequency of Alcohol Use: None Type of Drug Use: None Results - Labs CBC & BMP: 06/22/17 03:41 06/22/17 03:41 - Diagnostic Findings Procedure: Chest x-ray: image reviewed by me, report reviewed by me (Chest x- ray is very abnormal and she may have some CHF now. She does have some infiltrate in the right base.) Quality Measures - VTE Contraindication to Pharmacological VTE Prophylaxis: Already on Theraputic Agent , No Prophylaxis Needed
[2017-06-22] MEDS: SODIUM CHLORIDE 0.9% 1,000 ML IV SCH (17:26)
[2017-06-22] MEDS: ESCITALOPRAM 10 MG TABLET PO SCH (18:15)
[2017-06-22] MEDS: TEMAZEPAM 15 MG CAPSULE PO PRN (20:56)
[2017-06-23] MEDS: methylPREDNISolone SOD SUC 40 MG/1 ML VIAL IV SCH ×3 (01:29→17:58)
[2017-06-23] MEDS: SODIUM CHLORIDE 0.9% 1,000 ML IV SCH (04:17)
[2017-06-23 06:33] LABS: PT Patient Result 31.7 SECS
[2017-06-23] MEDS: ARFORMOTEROL 15 MCG/2 ML NEB RESP TX SCH ×2 (07:21→19:10)
--- NOTE | 2017-06-23 07:58 | Hospitalist Progress Note ---
Assessment and Plan (1) Orthostasis Status: Chronic Assessment and plan: Recurrent episodes of upright syncope associated with clinical volume contraction. Chronic use of Lasix and Florinef. 2016 normal left ventricular ejection fraction with pulmonary hypertension. Syncopal fall with blunt trauma to the right rib and fracture of the left thumb. Progressive decrease in breath sounds on the right side with excessive Coumadin effect at admission. Will obtain chest x-ray regarding potential for a developing hemothorax on the right Current Visit: Yes (2) History of COPD Status: Chronic Assessment and plan: Pulmonary fibrosis associated with tobacco use. Recent hospitalization with mucoid impaction and exacerbation of COPD. Moderate pulmonary hypertension on echocardiography. Current Visit: Yes (3) Pacemaker Status: Chronic Assessment and plan: History of paroxysmal atrial fibrillation with dual-chamber pacing device and pressure placed. Chronic suppressive therapy with amiodarone. Chronic anticoagulation with prolonged INR. Note is made of decrease in her hemoglobin level compared to admission which however has not progressed Current Visit: Yes Hospitalist: Subjective Interval history: 81-year-old female with chronic obstructive pulmonary disease with an echocardiogram performed in 2016 showing normal LV function with right ventricular systolic pressure of 60-65 mmHg. The patient was admitted following what sounds like an orthostatic episode of syncope. There is been a previous history of this. She has a history of paroxysmal atrial fibrillation with a dual-chamber pacing device in place and chronic suppressive therapy with amiodarone. She is maintained chronically on Coumadin and her INR was substantially prolonged at presentation. Although there was initial suggestion of a drop in hemoglobin level follow-up demonstrated correction. With syncopal episode she sustained a fracture of her left thumb. In addition there was blunt chest trauma to her right chest with initial films showing no evidence of rib fracture she is continued to have restricted breathing due to pain over the right chest and complains of more congestion this morning. Her vital signs were stable her rhythm is atrially paced with intact AV conduction. Exam - Constitutional Vitals: Period Temp Pulse Resp BP Sys/Schreiber Pulse Ox Last 24 Hr 96.9 F-98.7 F 59-67 16-20 116-161/53-76 90-95 General appearance: under weight - Respiratory Respiratory exam: Present: decreased breath sounds (Progressive loss of breath sounds on the right chest), rhonchi (Noted over the left chest posteriorly and anteriorly). Absent: rales, wheezes - Cardiovascular Cardiovascular exam: Present: regular rate and rhythm - GI/Abdominal GI/Abdominal exam: Present: normal bowel sounds. Absent: tenderness - Extremities Exam Extremities exam: Absent: edema - Neurological Exam Neurological exam: Present: alert, oriented X3 Results - Labs CBC & BMP: 06/23/17 05:29 06/22/17 03:41 Labs: INR 3.0 Quality Measures - VTE Contraindication to Pharmacological VTE Prophylaxis: Already on Theraputic Agent , No Prophylaxis Needed
[2017-06-23] MEDS: FLUDROCORTISONE 0.1 MG TABLET PO SCH (08:58)
[2017-06-23] MEDS: AMIODARONE 200 MG TABLET PO SCH (08:58)
[2017-06-23] MEDS: PANTOPRAZOLE 40 MG TABLET PO SCH (08:58)
--- NOTE | 2017-06-23 10:39 | XRay Report ---
History is a chest, and pain Chest 2 views Comparison 06/22/2017 Heart is enlarged with pacemaker present Bilateral hazy and reticular nodular pulmonary opacities mildly worsened in the interval. No pneumothorax seen The right rib fractures present with small right and minimal left pleural effusion Impression: 1. Increasing diffuse interstitial infiltrates versus edema superimposed on chronic changes 2. Small bilateral effusions 3. Nondisplaced right rib fractures PROCEDURE INTERPRETED AT [facility] DEPARTMENT OF RADIOLOGY Final Report Signed by: Dr. Cristin Patel
--- NOTE | 2017-06-23 11:17 | Pulmonology Progress Note ---
Pulmonary - PN: Subj Interval history: Patient is an 81-year-old white lady that has significant COPD and has had chronic cardiac problems. She does have a pacemaker. She had a recent syncopal episode. She fell on her right chest and is very sore now. She says it hurts to breathe and cough. She does have some chest congestion. Her chest x-ray is very abnormal. She is not having any worsening shortness of breath at present. Exam (Progress Note) - Constitutional Vitals: Period Temp Pulse Resp BP Sys/Schreiber Pulse Ox Last 24 Hr 96.9 F-98.7 F 59-67 16-20 116-161/53-76 86-95 Exam: General appearance: no acute distress, under weight, other (Patient looks reasonably comfortable. She is having some chest discomfort.) - Head Head exam: Present: normal inspection, normocephalic - Eye Eye exam: Present: EOMI. Absent: scleral icterus Pupils: Present: CELIO - ENT ENT exam: Present: normal exam - Neck Neck exam: Present: normal inspection. Absent: lymphadenopathy, thyromegaly - Respiratory Respiratory exam: Present: She has distant breath sounds with bilateral rhonchi and crackles. - Cardiovascular Cardiovascular exam: Present: regular rate and rhythm, systolic murmur. Absent : gallop, tachycardia - GI/Abdominal GI/Abdominal exam: Present: normal bowel sounds, soft. Absent: organomegaly, tenderness - Extremities Exam Extremities exam: Absent: calf tenderness, edema - Neurological Exam Neurological exam: Present: alert, oriented X3, CN II-XII intact - Psychiatric Psychiatric exam: Present: normal affect - Skin Skin exam: Present: warm, dry Results - Labs CBC & BMP: 06/23/17 05:29 06/22/17 03:41 - Diagnostic Findings Procedure: Chest x-ray: image reviewed by me, report reviewed by me (Chest x- ray showed cardiomegaly and bilateral infiltrates and effusions.) Assessment and Plan (1) COPD exacerbation Status: Acute Assessment and plan: Patient has significant COPD and has a little trouble with her breathing now. We will continue with respiratory therapy and a little bit of steroids. She continues to have trouble clearing secretions. Current Visit: No (2) Lupus Status: Acute Assessment and plan: She is not having problems with lupus at present. Current Visit: No (3) Vasovagal syncope Status: Acute Assessment and plan: She blacked out and is not clear exactly why at present. Her blood pressure is actually up now and her heart rate is stable. Current Visit: Yes (4) Contusion of right chest wall Status: Acute Assessment and plan: The patient bruised her chest wall and is a little sore now. We will try her on some muscle relaxants. Current Visit: Yes (5) Congestive heart failure Status: Acute Assessment and plan: Her x-ray suggests a little bit of heart failure now. We will try to diurese her a little now. Current Visit: Yes (6) Pacemaker Status: Chronic Assessment and plan: The patient does have a pacemaker. Current Visit: Yes
[2017-06-23] MEDS: FUROSEMIDE 40 MG/4 ML VIAL IV SCH (12:52)
[2017-06-23] MEDS: METHOCARBAMOL 500 MG TABLET PO PRN ×2 (14:48→21:16)
[2017-06-23] MEDS: WARFARIN 1 MG TABLET PO SCH (18:01)
[2017-06-23] MEDS: ESCITALOPRAM 10 MG TABLET PO SCH (18:01)
[2017-06-23] MEDS: TEMAZEPAM 15 MG CAPSULE PO PRN (21:16)
[2017-06-24] MEDS: methylPREDNISolone SOD SUC 40 MG/1 ML VIAL IV SCH ×3 (01:44→18:03)
[2017-06-24 04:43] LABS: INR 2.6
[2017-06-24 04:46] LABS: PT Patient Result 27.7 SECS
[2017-06-24 05:00] LABS: Calcium 9.1 MG/DL (8.5-10.1); Osmolality,Calculated 280.5 MOS/KG (273-304); Potassium 4.3 MMOL/L (3.5-5.1)
[2017-06-24] MEDS: ARFORMOTEROL 15 MCG/2 ML NEB RESP TX SCH ×2 (07:03→20:17)
[2017-06-24] MEDS: FUROSEMIDE 40 MG/4 ML VIAL IV SCH (08:59)
[2017-06-24] MEDS: FLUDROCORTISONE 0.1 MG TABLET PO SCH (09:00)
[2017-06-24] MEDS: PANTOPRAZOLE 40 MG TABLET PO SCH (09:00)
[2017-06-24] MEDS: AMIODARONE 200 MG TABLET PO SCH (09:00)
--- NOTE | 2017-06-24 10:46 | Pulmonology Progress Note ---
Pulmonary - PN: Subj Interval history: Patient is an 81-year-old white lady that has significant COPD and has had chronic cardiac problems. She does have a pacemaker. She had a recent syncopal episode. She fell on her right chest and is very sore now. She says it hurts to breathe and cough. She still has trouble clearing secretions. She feels short of breath but thinks she is a little better. She feels like she has diuresed a little. Her chest x-ray still very abnormal. She may need another therapeutic bronchoscopy. Exam (Progress Note) - Constitutional Vitals: Period Temp Pulse Resp BP Sys/Schreiber Pulse Ox Last 24 Hr 96.3 F-98.7 F 60-70 14-20 140-173/68-97 90-100 Exam: General appearance: no acute distress, under weight, other (Patient looks reasonably comfortable. She is having some chest discomfort. Her breathing is about the same.) - Head Head exam: Present: normal inspection, normocephalic - Eye Eye exam: Present: EOMI. Absent: scleral icterus Pupils: Present: CELIO - ENT ENT exam: Present: normal exam - Neck Neck exam: Present: normal inspection. Absent: lymphadenopathy, thyromegaly - Respiratory Respiratory exam: Present: She has distant breath sounds with bilateral rhonchi and crackles. She does have right-sided chest wall soreness. - Cardiovascular Cardiovascular exam: Present: regular rate and rhythm, systolic murmur. Absent : gallop, tachycardia - GI/Abdominal GI/Abdominal exam: Present: normal bowel sounds, soft. Absent: organomegaly, tenderness - Extremities Exam Extremities exam: Absent: calf tenderness, edema - Neurological Exam Neurological exam: Present: alert, oriented X3, CN II-XII intact - Psychiatric Psychiatric exam: Present: normal affect - Skin Skin exam: Present: warm, dry Results - Labs CBC & BMP: 06/23/17 05:29 06/24/17 04:16 Assessment and Plan (1) COPD exacerbation Status: Acute Assessment and plan: Patient has significant COPD and has a little trouble with her breathing now. We will continue with respiratory therapy and a little bit of steroids. She continues to have trouble clearing secretions. She may need another therapeutic bronchoscopy. Current Visit: No (2) Lupus Status: Acute Assessment and plan: She is not having problems with lupus at present. Current Visit: No (3) Vasovagal syncope Status: Acute Assessment and plan: She blacked out and is not clear exactly why at present. Her blood pressure is actually up now and her heart rate is stable. Current Visit: Yes (4) Contusion of right chest wall Status: Acute Assessment and plan: The patient bruised her chest wall and is a little sore now. We will try her on some muscle relaxants. Her soreness may be a little better. Current Visit: Yes (5) Congestive heart failure Status: Acute Assessment and plan: Her x-ray suggests a little bit of heart failure now. We will try to diurese her a little now. Current Visit: Yes (6) Pacemaker Status: Chronic Assessment and plan: The patient does have a pacemaker. Current Visit: Yes
--- NOTE | 2017-06-24 17:01 | Hospitalist Progress Note ---
Hospitalist: Subjective Interval history: 81-year-old female admitted with fall after syncope. Has history of recurrent syncopal episode due to orthostasis. She also has right rib fracture and and has pain on movement. Exam - Constitutional Vitals: Period Temp Pulse Resp BP Sys/Schreiber Pulse Ox Last 24 Hr 96.3 F-98.2 F 60-71 14-20 142-173/79-97 92-100 Exam: General: [No Acute Distress] HEENT: [Normocephalic, atraumatic, Extra ocular movements intact] Neck: [Supple, No JVD] Chest: [Clear to auscultation B/L] CV: [S1 + S2 audible without murmur, gallop or rub] Abd: [soft, NT, Non-distended, BS +] Ext: [No edema] Skin: [No purpura, bruising or rash] Rheumatologic: [No Joint deformities] Neurologic: [Awake and alert] Results - Labs CBC & BMP: 06/23/17 05:29 06/24/17 04:16 - Impressions Assessment and Plan: Recurrent syncopal episode related to orthostasis Status: Chronic Assessment and plan: Recurrent episodes of upright syncope associated with clinical volume contraction. Chronic use of Lasix and Florinef. 2016 normal left ventricular ejection fraction with pulmonary hypertension. Monitor orthostatics. Current Visit: Yes Fall with injury Status: Acute Assessment and plan: He suffered a nondisplaced right rib fractures with acute acute fracture of left first distal phalanx, pain control. Physical therapy. Current Visit: Yes Acute on chronic COPD exacerbation Status: Acute Assessment and plan: Stable on current treatment. Current Visit: No Paroxysmal atrial fibrillation Status: Chronic Assessment and plan: History of paroxysmal atrial fibrillation with dual-chamber permanent pacemaker and on chronic amiodarone, chronic anticoagulation with Coumadin. Coumadin toxicity has resolved. She is now back on Coumadin 2 mg we will monitor her INR Current Visit: Yes Severe peripheral vascular disease Status: Chronic Assessment and plan: Likely due to extensive smoking history, stable. Current Visit: Yes Quality Measures - VTE Contraindication to Pharmacological VTE Prophylaxis: Already on Theraputic Agent , No Prophylaxis Needed
[2017-06-24] MEDS: WARFARIN 1 MG TABLET PO SCH (18:03)
[2017-06-24] MEDS: ESCITALOPRAM 10 MG TABLET PO SCH (18:03)
[2017-06-24] MEDS ORDERED: hydrALAZINE 20 MG/1 ML VIAL IV PRN (19:36)
[2017-06-24] MEDS: METHOCARBAMOL 500 MG TABLET PO PRN (22:38)
[2017-06-24] MEDS: TEMAZEPAM 15 MG CAPSULE PO PRN (22:38)
[2017-06-25] MEDS: methylPREDNISolone SOD SUC 40 MG/1 ML VIAL IV SCH ×3 (01:51→17:46)
[2017-06-25] MEDS: ARFORMOTEROL 15 MCG/2 ML NEB RESP TX SCH ×2 (07:06→19:39)
--- NOTE | 2017-06-25 09:06 | Pulmonology Progress Note ---
Pulmonary - PN: Subj Interval history: Patient is an 81-year-old white lady that has significant COPD and has had chronic cardiac problems. She does have a pacemaker. She had a recent syncopal episode. She fell on her right chest and is very sore now. She says it hurts to breathe and cough. She still has trouble clearing secretions. She still gets short of breath when she does any activity. Her chest x-ray still looks awful. She has bilateral infiltrates and is worse in the right base. She is swallowing little better and she is diuresing a little. She still cannot clear secretions and will proceed with a bronchoscopy in the morning. Exam (Progress Note) - Constitutional Vitals: Period Temp Pulse Resp BP Sys/Schreiber Pulse Ox Last 24 Hr 96.6 F-98.2 F 61-93 14-21 141-189/62-87 90-100 Exam: General appearance: no acute distress, under weight, other (Patient looks reasonably comfortable. She is having some chest discomfort. Her breathing is about the same.) - Head Head exam: Present: normal inspection, normocephalic - Eye Eye exam: Present: EOMI. Absent: scleral icterus Pupils: Present: CELIO - ENT ENT exam: Present: normal exam - Neck Neck exam: Present: normal inspection. Absent: lymphadenopathy, thyromegaly - Respiratory Respiratory exam: Present: She has distant breath sounds with bilateral rhonchi and crackles. She does have right-sided chest wall soreness. She still has a harsh cough. - Cardiovascular Cardiovascular exam: Present: regular rate and rhythm, she does have a soft murmur . Absent: gallop, tachycardia - GI/Abdominal GI/Abdominal exam: Present: normal bowel sounds, soft. Absent: organomegaly, tenderness - Extremities Exam Extremities exam: Absent: calf tenderness, edema - Neurological Exam Neurological exam: Present: alert, oriented X3, CN II-XII intact - Psychiatric Psychiatric exam: Present: normal affect - Skin Skin exam: Present: warm, dry Results - Labs CBC & BMP: 06/23/17 05:29 06/24/17 04:16 - Diagnostic Findings Procedure: Chest x-ray: image reviewed by me, report reviewed by me (Chest x- ray has bilateral infiltrates and worsening atelectasis of the right lower lung. ) Assessment and Plan (1) COPD exacerbation Status: Acute Assessment and plan: Patient has significant COPD and has a little trouble with her breathing now. We will continue with respiratory therapy and a little bit of steroids. She continues to have trouble clearing secretions. Her chest x-ray is no better. Will proceed with the bronchoscope in the morning. Current Visit: No (2) Lupus Status: Acute Assessment and plan: She is not having problems with lupus at present. Current Visit: No (3) Vasovagal syncope Status: Acute Assessment and plan: She blacked out and is not clear exactly why at present. Her blood pressure is actually up now and her heart rate is stable. Current Visit: Yes (4) Contusion of right chest wall Status: Acute Assessment and plan: The patient bruised her chest wall and is a little sore now. We will try her on some muscle relaxants. Her soreness may be a little better. Current Visit: Yes (5) Congestive heart failure Status: Acute Assessment and plan: Her x-ray suggests a little bit of heart failure now. She is diuresing a little. Current Visit: Yes (6) Pacemaker Status: Chronic Assessment and plan: The patient does have a pacemaker. Her rhythm looks okay Current Visit: Yes (7) Esophageal motility disorder Status: Chronic Assessment and plan: She says she is swallowing okay at times. Current Visit: No
[2017-06-25] MEDS: FUROSEMIDE 40 MG/4 ML VIAL IV SCH (09:12)
[2017-06-25] MEDS: FLUDROCORTISONE 0.1 MG TABLET PO SCH (09:13)
[2017-06-25] MEDS: AMIODARONE 200 MG TABLET PO SCH (09:13)
[2017-06-25] MEDS: PANTOPRAZOLE 40 MG TABLET PO SCH (09:13)
--- NOTE | 2017-06-25 09:49 | XRay Report ---
History: Shortness of breath Date: 06/25/2017 Study: Chest x-ray AP portable Comparison exam: June 23, 2017 There is continued cardiomegaly. The mediastinal contours are similar. The pulmonary vasculature is slightly prominent. There is patchy and hazy and strandy parenchymal disease in the mid to lower lungs bilaterally. While some of this is chronic, there is thought to be some acute superimposed pulmonary edema/infiltrate which is slightly increased compared to the previous study. There is increasing mild to moderate right pleural effusion. A left subclavian transvenous pacemaker is stable in appearance. Osseous structures are unchanged. Impression: Increasing bibasilar pulmonary edema/infiltrate, superimposed upon chronic lung disease. Mildly increased right pleural effusion PROCEDURE INTERPRETED AT [facility] DEPARTMENT OF RADIOLOGY Final Report Signed by: Dr. Kaila Currie
[2017-06-25] MEDS ORDERED: amLODIPine 10 MG TABLET PO ONE (12:26)
--- NOTE | 2017-06-25 15:29 | Hospitalist Progress Note ---
Hospitalist: Subjective Interval history: 81-year-old female admitted with fall after syncope. Has history of recurrent syncopal episode due to orthostasis. She also has right rib fracture and and has pain on movement. Exam - Constitutional Vitals: Period Temp Pulse Resp BP Sys/Schreiber Pulse Ox Last 24 Hr 96.6 F-98.2 F 61-93 16-21 141-189/62-81 90-100 Exam: General: [No Acute Distress] HEENT: [Normocephalic, atraumatic, Extra ocular movements intact] Neck: [Supple, No JVD] Chest: [Clear to auscultation B/L] CV: [S1 + S2 audible without murmur, gallop or rub] Abd: [soft, NT, Non-distended, BS +] Ext: [No edema] Skin: [No purpura, bruising or rash] Rheumatologic: [No Joint deformities] Neurologic: [Awake and alert] Results - Labs CBC & BMP: 06/23/17 05:29 06/24/17 04:16 - Impressions Assessment and Plan: Recurrent syncopal episode related to orthostasis Status: Chronic Assessment and plan: Recurrent episodes of upright syncope associated with clinical volume contraction. Chronic use of Lasix and Florinef. 2016 normal left ventricular ejection fraction with pulmonary hypertension. She is on fludrocortisone but still orthostatic, he does have baseline hypertension from it, will add Norvasc. Cardiology consulted Current Visit: Yes Fall with injury Status: Acute Assessment and plan: He suffered a nondisplaced right rib fractures with acute acute fracture of left first distal phalanx, pain control. Physical therapy. Current Visit: Yes Acute on chronic COPD exacerbation Status: Acute Assessment and plan: She has some trouble clearing her secretions, she is going for bronchoscopy in the morning Current Visit: No Paroxysmal atrial fibrillation Status: Chronic Assessment and plan: History of paroxysmal atrial fibrillation with dual-chamber permanent pacemaker and on chronic amiodarone, chronic anticoagulation with Coumadin. Coumadin toxicity has resolved. She is now back on Coumadin 2 mg we will monitor her INR Current Visit: Yes Severe peripheral vascular disease Status: Chronic Assessment and plan: Likely due to extensive smoking history, stable. Current Visit: Yes Quality Measures - VTE Contraindication to Pharmacological VTE Prophylaxis: Already on Theraputic Agent , No Prophylaxis Needed Quality Measures - VTE Contraindication to Pharmacological VTE Prophylaxis: Already on Theraputic Agent , No Prophylaxis Needed
--- NOTE | 2017-06-25 16:30 | Cardiology Consult Note ---
<Katya Moss E - Last Filed: 06/25/17 15:55> Assessment and Plan - Time spent with patient Time spent with patient: Greater than 30 minutes Time spent discussing smoking cessation with patient: 3 to 10 minutes (1) Syncope Status: Acute Assessment and plan: SEE PLAN OF CARE LISTED BELOW Current Visit: Yes (2) Hypertension Status: Chronic Assessment and plan: SEE PLAN OF CARE LISTED BELOW Current Visit: Yes (3) At high risk for falls Status: Acute Assessment and plan: SEE PLAN OF CARE LISTED BELOW Current Visit: Yes (4) PAF (paroxysmal atrial fibrillation) Status: Chronic Assessment and plan: SEE PLAN OF CARE LISTED BELOW Current Visit: Yes History of Present Illness - Data of Consult Patient: known to practice within the last 3 years Consult date: 06/25/17 Requesting Physician: Iain Nava - Consult Narrative Reason for consult: syncope 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 Valdez, 81 WF, has risk factors significant for: age, hypercholesterolemia , sedentary lifestyle. History of biventricular pacemaker, PAF, TIA (takes warfarin for stroke prevention), protein S deficiency and hypercoagulable state , COPD. Admitted June 21, 2017 after (recurrent) syncope, falling and hurting her right side chest, left thumb (fracture). She is followed by Dr. Joya, neurologist, for recurrent syncope. Patient reports she was getting out of bed , sitting on the side of the bed when she stood up and experienced complete syncope. She awakened lying on the floor in a significant amount of pain in believes she was out approximately 2-3 minutes. Her only chest pain is that which is reproducible after the fall. She is normally fairly active and can perform her activities without chest pain, heaviness or tightness. Troponin initially 0.4 now normalized. She has been diagnosed with vasovagal syncope related to mild dehydration. Apparently, patient has had syncope for many years thought to be vasovagal in nature. She reports she did have a seizure many years ago but does not take seizure medication. She did not bite her tongue nor lose her bowel or bladder control during this episode. She has had her pacemaker interrogated several episodes after having syncopal episodes with no known arrhythmia however not interrogated during this admission. She has undergone carotid ultrasounds May 18, 2017 which revealed: 60-79% stenosis in the proximal right internal carotid artery, 40-59% stenosis in the proximal left internal carotid artery. Cardiolite stress test 12/27/2016: Normal perfusion study, EF 58%, low risk for future cardiovascular events. Reviewing her telemetry strips, she has had an episode of brief NSVT, atrial fib , possible bigeminy. She scheduled for fiberoptic bronchoscopy tomorrow. Chest x-ray reveals increasing by basilar pulmonary edema/infiltrate superimposed on chronic lung disease. INR is therapeutic today at 2.6 as INR was supratherapeutic on admission. Tomorrow, will have her device interrogated to verify there was no arrhythmia occurring at the time of her syncopal episode. Blood pressure is uncontrolled and will add very low-dose beta- rachel this evening. High falls risk and will verify the fall prevention protocol is in place. Echocardiogram tomorrow as there is not been a recent echo. Labs tomorrow morning. Will further discuss with Dr. Sears and await additional recommendations. IMPRESSION/PLAN: 1. SYNCOPE - may be related to orthostasis, vasovagal. Will interrogate her device tomorrow to verify no arrhythmias contributing to her syncope. 2. HYPERTENSION - suboptimally controlled. Adding low-dose beta rachel beginning this evening 3. PAF - rate controlled. Coumadin continues. Add labs tomorrow morning to include TSH/T4 4. HIGH FALLS RISK - fall prevention protocol in place CC: Iain Nava MD - Home Medications and Allergies Home Medications: Home Medications Medication Instructions Recorded Confirmed Type Amiodarone HCl 200 mg PO QAM 05/21/17 06/21/17 History Escitalopram [Lexapro] 10 mg PO QPM 05/21/17 06/21/17 History Furosemide 40 mg PO QAM 05/21/17 06/21/17 History Pantoprazole Tab [Protonix Tab] 40 mg PO QAM 05/21/17 06/21/17 History Temazepam 30 mg PO BEDTIME 05/21/17 06/21/17 History Warfarin Sodium 2 mg PO BEDTIME 05/21/17 06/21/17 History Acetaminophen Tab [Tylenol Tab] 325 mg PO Q4H PRN tablet 05/24/17 06/21/17 Rx Albuterol/Ipratropium Neb [Duoneb] 3 ml RESP TX RT Q4H PRN 05/24/17 06/21/17 Rx Arformoterol Neb [Brovana] 15 mcg RESP TX RT BID 05/24/17 06/21/17 Rx Fludrocortisone [Florinef] 0.1 mg PO DAILY 06/21/17 06/21/17 History Allergies/Adverse Reactions: Allergies Allergy/AdvReac Type Severity Reaction Status Date / Time No Known Allergies Allergy Verified 06/21/17 13:07 Review of systems: REVIEW OF SYSTEMS: - Constitutional Constitutional: Present: Fatigue. Syncope. Achalasia. Absent: anorexia, night sweats - EENT Eyes: Absent: blurry vision, loss of vision, diplopia Ears: Absent: decreased hearing, ear pain, ear discharge - Cardiovascular Cardiovascular: Denies chest pain with exertion, dyspnea on exertion, edema, palpitations. Chest pain reproducible. Denies claudication - Respiratory Respiratory: Denies ROSA, cough. Absent: wheezing, hemoptysis, change in phlegm color - Gastrointestinal Gastrointestinal: Present: constipation. Absent: abdominal pain, hematemesis , hematochezia, melena, change in bowel habits, nausea - Genitourinary Genitourinary: Absent: difficulty urinating, dysuria, urinary hesitancy, flank pain - Musculoskeletal Musculoskeletal: Present: back pain Absent: joint swelling, muscle cramps, muscle weakness - Neurological Neurological: Present: Poor gait with frequent syncope. Absent: dizziness, hemiparesis - Psychiatric Psychiatric: Absent: anxiety, depression, difficulty concentrating - Endocrine Endocrine: Present: fatigue. Absent: cold intolerance, heat intolerance, polyuria, polyphagia, polydipsia - Hematologic/Lymphatic Hematologic/Lymphatic: Present: easy bruising. 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 BANUELOS), Obstructive Sleep Apnea (no sleep study), Pneumonia Genitourinary: History of: Recurring Urinary Tract Infections Gastrointestinal: History of: Diverticulitis/ Diverticulosis, GERD, Hemorrhoids (HEMORRHOIDECTOMY), GI Problems (HIATAL HERNIA, botox to esophagus x1, needs again) No history of: Hepatitis, Liver Problems Musculoskeletal: History of: Back/Neck Problems, Degenerative Disk Disease, Herniated Disk, Musculoskeletal Problems (ARTHRITIS and lupus) No history of: Amputation Hematology: History of: Anemia No history of: Blood Transfusion Reaction (GREATER 50 YRS SEVERAL BLOOD TRANSFUSIONS-NO REACTION) Other: History of: 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) - Surgical History Cardiac Surgeries: Sugical HX of: Femoral-Popliteal Bypass Graft (stents to bilat legs), Cardiac Catheterization (x2) Patient Denies: Carotid Endarterectomy Thoracic Surgeries: Patient denies;: Organ Transplant, Lobectomy Neurologic Surgeries: Patient denies: Neurologic Surgery HEENT Surgeries: Surgical HX of: Eye Surgery (CATARACT BILATERALLY) Patient denies: Carotid Endarterectomy, Tonsilectomy & Adenoidectomy Abdominal Surgeries: Surgical HX of: Abdominal Surgery, Appendectomy, Colonoscopy, EGD Patient denies: Cholecystectomy Reproductive Surgeries: Surgical HX of;: Gynecologic Surgery, Hysterectomy (BSO 1961) Patient denies;: Breast Surgery, Genitourinary Surgery Orthopedic Surgeries: Patient denies;: Orthopedic Surgery - Family History Family History: Reports;: Family Cancer (MOTHER KIDNEY, BROTHER BONE, and sister ), Family Heart Disease (FATHER OF CHF), Family Hypertension (SISTER), Family Stroke (SISTERS times 3) - Social History Smoking Status: Current every day smoker Have you smoked in the last 12 months: Yes Time spent discussing smoking cessation with patient: 3 to 10 minutes Frequency of Alcohol Use: None Type of Drug Use: None Marital Status: Lives With:: Children Physical Examination Vital Signs Temp Pulse Resp BP Pulse Ox 99.6 F 90 18 144/57 90 L 06/21/17 12:52 06/21/17 12:52 06/21/17 12:52 06/21/17 12:52 06/21/17 12:52 Exam: General: [Appears well with no apparent distress.] [Pleasant and cooperative. ] [Appears comfortable.] HEENT: [PERRL, normocephalic, atraumatic. Mucous membranes moist. No jaundice noted. Conjunctiva moist and clear, sclerae anicteric] Neck: No JVD/HJR, no thyromegaly or lymphadenopathy noted. No carotid bruit appreciated Cardiac: [Irregularly irregular rhythm, controlled rate.] [No murmur rub or gallop.] Lungs: [Clear to auscultation without accessory muscle use to assist the respiratory pattern.] Using oxygen intermittently Abdomen: Soft, bowel sounds normoactive. Nontender and nondistended. No abdominal bruit or thrill noted. No masses noted. Musculoskeletal: No fluid collection. Decreased range of motion is noted. Extremities: No clubbing, cyanosis noted. [ No edema noted.] Upper extremity pulses 2+. Lower extremity pulses 2+. Capillary refill less than 3 seconds. Skin: No unusual lesions or rashes. No skin breakdown appreciated. Neuro: Awake, alert and oriented 3. Moves all extremities well without hemiparesis or paralysis. No essential tremor is appreciated. Result/EKG - Labs CBC & BMP: 06/23/17 05:29 06/24/17 04:16 Lab Results: I have reviewed the past 24 hour labs - Diagnostic Findings Procedure: Chest x-ray: report reviewed by me - EKG EKG results: interpreted by nj EKG shows: atrial fibrillation Quality Measures - VTE Contraindication to Pharmacological VTE Prophylaxis: Already on Theraputic Agent , No Prophylaxis Needed <Porfirio Sears - Last Filed: 06/25/17 20:20> History of Present Illness - Consult Narrative History of present illness: Patient personally reviewed and examined chart reviewed. Discussed this case with Katya Moss NP and agree with the history and evaluation. Ms. Valdez is a 81 year old female has a chronic history of having syncopal episodes and apparently related to hypotensive episodes. She has been evaluated by Dr. Blevins as well as Dr. Joya. We need to obtain those records. Her history is such that she states she has had episodes of hypotension for years and now her blood pressures are actually elevated in the hospital. CC: Iain Nava MD Physical Examination Vital Signs Temp Pulse Resp BP Pulse Ox 99.6 F 90 18 144/57 90 L 06/21/17 12:52 06/21/17 12:52 06/21/17 12:52 06/21/17 12:52 06/21/17 12:52 Result/EKG - Labs CBC & BMP: 06/23/17 05:29 06/24/17 04:16
--- NOTE | 2017-06-25 17:41 | Orthopedic Consult Note ---
History of Present Illness Chief complaint: Left thumb fracture History of present illness: Ms. Valdez is a 81 year old female who fell a few days ago being admitted for pulmonary injury and rib fractures she was also noted to have a fracture to the distal phalanx of the thumb left hand she has been placed in a splint due to the admission and the length of stay I been asked to evaluate regarding her thumb injury Clinical examination confirms a thin white female she has moderate amount of swelling and bruising about the thumb she is already removed her thumb spica splint. There is no pain more proximally at the proximal phalanx MP joint or base of the thumb also no involvement of the lesser digits. There is no pain proximal to the wrist radiographs confirming a minimally displaced transverse fracture involving distal phalanx left thumb Impression: Distal phalanx fracture left thumb Plan: I reapplied a thumb spica splint and will arrange to get her a small stack splint or aluminum splint in the a.m. before consideration for discharge she reports that she is scheduled to undergo a bronchoscopy and then possible discharge tomorrow. Again I think we can get her comfortable and a much smaller distal phalanx type splint. Thank you for the consultation Home Medications Medication Instructions Recorded Confirmed Type Amiodarone HCl 200 mg PO QAM 05/21/17 06/21/17 History Escitalopram [Lexapro] 10 mg PO QPM 05/21/17 06/21/17 History Furosemide 40 mg PO QAM 05/21/17 06/21/17 History Pantoprazole Tab [Protonix Tab] 40 mg PO QAM 05/21/17 06/21/17 History Temazepam 30 mg PO BEDTIME 05/21/17 06/21/17 History Warfarin Sodium 2 mg PO BEDTIME 05/21/17 06/21/17 History Acetaminophen Tab [Tylenol Tab] 325 mg PO Q4H PRN tablet 05/24/17 06/21/17 Rx Albuterol/Ipratropium Neb [Duoneb] 3 ml RESP TX RT Q4H PRN 05/24/17 06/21/17 Rx Arformoterol Neb [Brovana] 15 mcg RESP TX RT BID 05/24/17 06/21/17 Rx Fludrocortisone [Florinef] 0.1 mg PO DAILY 06/21/17 06/21/17 History Allergies Allergy/AdvReac Type Severity Reaction Status Date / Time No Known Allergies Allergy Verified 06/21/17 13:07 Medical,Surgical,& Family Hx - Medical History Cardio: History of: Cardiac Dysrhythmia (A-FIB ON COUMADIN), CHF, Pacemaker, PVD (FOR AF ARTERIOGRAM 03/08/15), 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 BANUELOS), Obstructive Sleep Apnea (no sleep study), Pneumonia Genitourinary: History of: Recurring Urinary Tract Infections Gastrointestinal: History of: Diverticulitis/ Diverticulosis, GERD, Hemorrhoids (HEMORRHOIDECTOMY), GI Problems (HIATAL HERNIA, botox to esophagus x1, needs again) No history of: Hepatitis, Liver Problems Musculoskeletal: History of: Back/Neck Problems, Degenerative Disk Disease, Herniated Disk, Musculoskeletal Problems (ARTHRITIS and lupus) No history of: Amputation Hematology: History of: Anemia No history of: Blood Transfusion Reaction (GREATER 50 YRS SEVERAL BLOOD TRANSFUSIONS-NO REACTION) Other: History of: 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) - Surgical History Cardiac Surgeries: Sugical HX of: Femoral-Popliteal Bypass Graft (stents to bilat legs), Cardiac Catheterization (x2) Patient Denies: Carotid Endarterectomy Thoracic Surgeries: Patient denies;: Organ Transplant, Lobectomy Neurologic Surgeries: Patient denies: Neurologic Surgery HEENT Surgeries: Surgical HX of: Eye Surgery (CATARACT BILATERALLY) Patient denies: Carotid Endarterectomy, Tonsilectomy & Adenoidectomy Abdominal Surgeries: Surgical HX of: Abdominal Surgery, Appendectomy, Colonoscopy, EGD Patient denies: Cholecystectomy Reproductive Surgeries: Surgical HX of;: Gynecologic Surgery, Hysterectomy (BSO 1961) Patient denies;: Breast Surgery, Genitourinary Surgery Orthopedic Surgeries: Patient denies;: Orthopedic Surgery - Family History Family History: Reports;: Family Cancer (MOTHER KIDNEY, BROTHER BONE, and sister ), Family Heart Disease (FATHER OF CHF), Family Hypertension (SISTER), Family Stroke (SISTERS times 3) - Social History Smoking Status: Current every day smoker Frequency of Alcohol Use: None Type of Drug Use: None Exam - Constitutional Vitals: Period Temp Pulse Resp BP Sys/Schreiber Pulse Ox Last 24 Hr 96.6 F-97.9 F 60-88 16-20 139-189/62-79 92-100 Results - Labs CBC & BMP: 06/23/17 05:29 06/24/17 04:16
[2017-06-25] MEDS: WARFARIN 1 MG TABLET PO SCH (17:47)
[2017-06-25] MEDS: METOPROLOL TARTRATE 25 MG TABLET PO SCH (20:30)
[2017-06-25] MEDS: ESCITALOPRAM 10 MG TABLET PO SCH (20:30)
[2017-06-25] MEDS: TEMAZEPAM 15 MG CAPSULE PO PRN (21:25)
[2017-06-25] MEDS: METHOCARBAMOL 500 MG TABLET PO PRN (21:25)
[2017-06-26] MEDS: methylPREDNISolone SOD SUC 40 MG/1 ML VIAL IV SCH ×3 (01:08→17:01)
[2017-06-26 06:45] LABS: Hematocrit 35.1 VOL% (35.7-47.0); Hemoglobin 11.2 GM/DL (12.0-16.0); Immature Granulocytes % 1.1 %; Immature Granulocytes Absolute 0.07 #; Lymphocytes # 0.7 10*3/uL (1.4-4.0); Lymphocytes % 10.9 % (21.3-54.2); Mean Corpuscular HGB Conc 31.9 GM/DL (32-36); Mean Corpuscular Hemoglobin 26 PG (27-34); Mean Corpuscular Volume 82.2 FL (87-102); Mean Platelet Volume 10.9 FL (9.6-12.0); Monocytes # 0.4 10*3/uL (0.11-0.8); Monocytes % 5.9 % (1.7-12.7); Neutrophils # 5.3 10*3/uL (1.4-7.4); Neutrophils % 82.1 % (38.7-73.9); Platelet Count 256 T/CUMM (130-400); Red Blood Count 4.27 MC/CUMM (3.8-5.5); Red Cell Distribution Width 18.5 % (9.3-17.3); White Blood Count 6.5 T/CUMM (4-12)
[2017-06-26 06:51] LABS: INR 2.8
[2017-06-26 06:53] LABS: PT Patient Result 30.9 SECS
[2017-06-26] MEDS ORDERED: PROMETHAZINE 25 MG/1 ML VIAL IM ONE (07:00)
[2017-06-26] MEDS ORDERED: MEPERIDINE 50 MG/1 ML VIAL IM ONE (07:00)
[2017-06-26] MEDS ORDERED: MIDAZOLAM 2 MG/2 ML VIAL ONE (07:11)
[2017-06-26 07:25] LABS: Calcium 9.1 MG/DL (8.5-10.1); Free T4 (Free Thyroxine) 1.75 NG/DL (0.76-1.46); Magnesium 1.9 MG/DL (1.8-2.4); Osmolality,Calculated 286.1 MOS/KG (273-304); Potassium 3.7 MMOL/L (3.5-5.1); Risk Ratio 2.57; Thyroid Stimulating Hormone 0.062 uIU/ml (0.358-3.74); VLDL CHOLESTEROL 15.8 MG/DL
[2017-06-26] MEDS ORDERED: LIDOCAINE 2% VISCOUS 100 ML BOTTLE SWISH/SPIT ONE (07:30)
[2017-06-26] MEDS ORDERED: MIDAZOLAM 2 MG/2 ML VIAL IV ONE (07:30)
[2017-06-26] MEDS ORDERED: LIDOCAINE 2% 20 ML VIAL RESP TX ONE (07:30)
[2017-06-26] MEDS ORDERED: LIDOCAINE 1% 20 ML VIAL MISC INJ ONE (07:30)
--- NOTE | 2017-06-26 07:52 | Pulmonology Progress Note ---
Pulmonary - PN: Subj Interval history: Patient is an 81-year-old white lady that has significant COPD and has had chronic cardiac problems. She does have a pacemaker. She had a recent syncopal episode. She fell on her right chest and is very sore now. She says it hurts to breathe and cough. She still has trouble clearing secretions. She still gets short of breath when she does any activity. Her chest x-ray still looks awful. She has bilateral infiltrates and is worse in the right base. She is swallowing little better and she is diuresing a little. She says she had a fairly reasonable night. She still coughing and still get short of breath easily. Will go ahead with a bronchoscope this morning. Exam (Progress Note) - Constitutional Vitals: Period Temp Pulse Resp BP Sys/Schreiber Pulse Ox Last 24 Hr 96.8 F-98.2 F 59-70 12-20 139-199/63-98 94-99 Exam: General appearance: no acute distress, under weight, other (Patient looks reasonably comfortable. She looks like she is breathing okay today.) - Head Head exam: Present: normal inspection, normocephalic - Eye Eye exam: Present: EOMI. Absent: scleral icterus Pupils: Present: CELIO - ENT ENT exam: Present: normal exam - Neck Neck exam: Present: normal inspection. Absent: lymphadenopathy, thyromegaly - Respiratory Respiratory exam: Present: She has distant breath sounds with bilateral rhonchi and crackles. She does have right-sided chest wall soreness. She seems to be moving air okay. - Cardiovascular Cardiovascular exam: Present: regular rate and rhythm, she does have a soft murmur . Absent: gallop, tachycardia - GI/Abdominal GI/Abdominal exam: Present: normal bowel sounds, soft. Absent: organomegaly, tenderness - Extremities Exam Extremities exam: Absent: calf tenderness, edema - Neurological Exam Neurological exam: Present: alert, oriented X3, CN II-XII intact - Psychiatric Psychiatric exam: Present: normal affect - Skin Skin exam: Present: warm, dry Results - Labs CBC & BMP: 06/26/17 06:32 06/26/17 06:32 Assessment and Plan (1) COPD exacerbation Status: Acute Assessment and plan: Patient has significant COPD and continues to have some shortness of breath. Her chest x-ray has extensive infiltrates. Will try a therapeutic bronchoscopy today. She will continue with treatment. Current Visit: No (2) Lupus Status: Acute Assessment and plan: She is not having problems with lupus at present. Current Visit: No (3) Vasovagal syncope Status: Acute Assessment and plan: She blacked out and is not clear exactly why at present. Her blood pressure is actually up now and her heart rate is stable. Her pacemaker will be checked. Current Visit: Yes (4) Contusion of right chest wall Status: Acute Assessment and plan: The patient bruised her chest wall and is a little sore now. We will try her on some muscle relaxants. Her soreness may be a little better. Current Visit: Yes (5) Congestive heart failure Status: Acute Assessment and plan: Her x-ray suggests a little bit of heart failure now. Her weight is down some. We will continue to diurese. Current Visit: Yes (6) Pacemaker Status: Chronic Assessment and plan: The patient does have a pacemaker. Her pacemaker is being checked. Current Visit: Yes (7) Esophageal motility disorder Status: Chronic Assessment and plan: She says she is swallowing okay at times. Current Visit: No
--- NOTE | 2017-06-26 07:56 | Operative Note ---
Date of procedure: 06/26/17 Pre-op diagnosis: COPD with a mucous plugging Post-op diagnosis: same Procedure: The patient comes in with shortness of breath and has bilateral infiltrates. She has significant COPD along with chronic heart failure. She complains of having difficulty clearing secretions. Will proceed with a therapeutic bronchoscopy and clear airways. Timeout was performed to identify the patient. The patient is in the bronchoscopy lab. Preop: Demerol 50 mg, Phenergan 25 mg IM. Anesthesia: Versed 2 mg IVP, topical lidocaine. Procedure: The fiberoptic bronchoscope was passed transnasally through the vocal cords into the lungs. The bronchopulmonary segments were identified and specimens were obtained. Findings: The vocal cords trachea and stacey are unremarkable. The main bronchi are open. The airways collapse quite easily and there is considerable bronchitis present. There is some thick mucus and plugs seen bilaterally that were washed and cleared and sent for culture. The right upper lobe, right middle lobe, and right lower lobe are all open. The lingula, left upper lobe, and left lower lobe are all open. There are no endobronchial lesions seen. Once the airways were clear the procedure was stopped. She tolerated the procedure well without any problems. Impression: COPD with bronchitis and mucous plugging. Plan: We will continue with steroids and bronchodilator therapy. Anesthesia: conscious sedation Surgeon / Physician: Patrick Douglass Estimated blood loss: none Specimens: other (Washings were sent for culture and cytology.) Condition: stable Disposition: floor Results - Labs CBC & BMP: 06/26/17 06:32 06/26/17 06:32 Discharge Plan - Discharge Medications No Action Escitalopram [Lexapro] 10 mg PO QPM Furosemide 40 mg PO QAM Amiodarone HCl 200 mg PO QAM Warfarin Sodium 2 mg PO BEDTIME Albuterol/Ipratropium Neb [Duoneb] 3 ml RESP TX RT Q4H PRN PRN Reason: Shortness Of Breath/Wheezing Pantoprazole Tab [Protonix Tab] 40 mg PO QAM Temazepam 30 mg PO BEDTIME Acetaminophen Tab [Tylenol Tab] 325 mg PO Q4H PRN tablet PRN Reason: fever, headache/body aches Arformoterol Neb [Brovana] 15 mcg RESP TX RT BID Fludrocortisone [Florinef] 0.1 mg PO DAILY - Follow Up or Referral - Forms/Instructions
[2017-06-26] MEDS: ARFORMOTEROL 15 MCG/2 ML NEB RESP TX SCH ×2 (08:40→19:40)
[2017-06-26] MEDS: DORNASE ALFA 2.5 MG/2.5 ML VIAL RESP TX SCH ×2 (08:47→19:40)
--- NOTE | 2017-06-26 09:03 | Hospitalist Progress Note ---
Assessment and Plan (1) Syncope Status: Acute Assessment and plan: may be related to orthostasis, vasovagal. cardiology is following for interrogation of pacemaker today.CT head showed no acute changes Will get Carotid dopplers. Current Visit: Yes (2) Hypertension Status: Chronic Assessment and plan: add Lisinopril 5mg daily follow response Current Visit: Yes (3) PAF (paroxysmal atrial fibrillation) Status: Chronic Assessment and plan: History of paroxysmal atrial fibrillation with dual-chamber permanent pacemaker and on chronic amiodarone, chronic anticoagulation with Coumadin. Coumadin toxicity has resolved. She is now back on Coumadin 2 mg we will monitor her INR Current Visit: Yes (4) Acute exacerbation of chronic obstructive pulmonary disease (COPD) Status: Acute Assessment and plan: s/p bronchoscopy this am. Pulm is following Current Visit: No (5) Lupus Status: Chronic Assessment and plan: stable for now Current Visit: No (6) Congestive heart failure Status: Chronic Assessment and plan: continue with IV lasix Current Visit: No Qualifiers: Congestive heart failure type: diastolic Congestive heart failure chronicity: acute on chronic Qualified Code(s): I50.33 - Acute on chronic diastolic (congestive) heart failure (7) Phalanx, distal fracture of finger Status: Acute Assessment and plan: of the left thumb due to fall. Continue with Orthopedics recommendations Current Visit: Yes (8) PVD (peripheral vascular disease) Status: Acute Assessment and plan: Likely due to extensive smoking history, stable. Current Visit: Yes Hospitalist: Subjective Interval history: Patient seen this am, she was a little drowsy, she was just returning from Bronchoscopy. Exam - Constitutional Vitals: Period Temp Pulse Resp BP Sys/Schreiber Pulse Ox Last 24 Hr 96.8 F-98.2 F 59-70 10-20 139-199/65-98 92-99 General appearance: no acute distress - Head Head exam: Present: normal inspection - Respiratory Respiratory exam: Present: clear to auscultation bilaterally - Cardiovascular Cardiovascular exam: Present: regular rate and rhythm - GI/Abdominal GI/Abdominal exam: Present: normal bowel sounds - Extremities Exam Extremities exam: Present: normal inspection, other (left thumg bandaged) - Neurological Exam Neurological exam: Present: oriented X3 Results - Labs CBC & BMP: 06/26/17 06:32 06/26/17 06:32 Lab Results: I have reviewed the past 24 hour labs Quality Measures - VTE Contraindication to Pharmacological VTE Prophylaxis: Already on Theraputic Agent , No Prophylaxis Needed
--- NOTE | 2017-06-26 10:26 | Ultrasound Report ---
Exam: US carotid duplex BI Date: 06/26/2017 9:05 AM Indication: Syncope comparison study 03/04/2015 Findings: Grayscale color flow analysis and spectral analysis imaging was performed with image stored and captured. Right Side Flow velocities centimeters per second Common carotid artery: 20.8 Proximal ICA: 134.6 Distal ICA: 134.5 External carotid artery: 143.9 Vertebral artery: 58.9 ICA/CCA ratio: 6.5 Measurements in millimeters Distal ICA: 4.3 Left SIde Flow velocities centimeters per second Common carotid artery: 68.0 Proximal ICA: 100.3 Distal ICA: 72.7 External carotid artery: 78.7 Vertebral artery: 63.3 ICA/CCA ratio: 1.1 Measurements in millimeters Distal ICA: 5.3 Heavy calcified plaque is present in the carotid bulb regions and takeoff the internal carotid arteries bilaterally right greater than left. Abnormal color flow and spectral wave analysis broadening present Impression: 1. High-grade stenosis of the right internal carotid artery suspected with heavy calcified plaque and elevated velocity ratios. Findings suggest at least 70% or greater stenosis right internal carotid artery 2. Heavy calcified plaque in the left internal carotid artery velocity ratios and ICA/CCA ratio suggest 16-49% stenosis CT angiography or formal arteriography recommended for further evaluation of this patient. Today studies were performed utilizing indirect NASCET criteria The ultrasound images were stored and captured PROCEDURE INTERPRETED AT [facility] DEPARTMENT OF RADIOLOGY Final Report Signed by: Dr. Jt Thorne
[2017-06-26] MEDS: METOPROLOL TARTRATE 25 MG TABLET PO SCH ×2 (10:28→20:12)
[2017-06-26] MEDS: LISINOPRIL 5 MG TABLET PO SCH (10:28)
[2017-06-26] MEDS: FUROSEMIDE 40 MG/4 ML VIAL IV SCH ×2 (10:28→17:01)
[2017-06-26] MEDS: amLODIPine 10 MG TABLET PO SCH (10:28)
[2017-06-26] MEDS: AMIODARONE 200 MG TABLET PO SCH (10:29)
[2017-06-26] MEDS: PANTOPRAZOLE 40 MG TABLET PO SCH (10:29)
[2017-06-26] MEDS: FLUDROCORTISONE 0.1 MG TABLET PO SCH (10:29)
--- NOTE | 2017-06-26 12:50 | Orthopedic Progress Note ---
Orthopedics - Subjective Interval history: Fitted with a stack splint for her left thumb. Instructed. Follow-up 2 weeks Exam - Constitutional Vitals: Period Temp Pulse Resp BP Sys/Schreiber Pulse Ox Last 24 Hr 96.8 F-98.6 F 58-70 10-20 139-199/65-98 92-99 Results - Labs CBC & BMP: 06/26/17 06:32 06/26/17 06:32 Quality Measures - VTE Contraindication to Pharmacological VTE Prophylaxis: Already on Theraputic Agent , No Prophylaxis Needed
[2017-06-26] MEDS: WARFARIN 1 MG TABLET PO SCH (17:01)
--- NOTE | 2017-06-26 17:39 | Cardiology Progress Note ---
Suzan Iglesias April RN, am scribing for, and in the presence of, Mick Crowder MD 17:39. Assessment and Plan (1) Syncope Status: Acute Assessment and plan: [employer] corporate sales representative checked pacemaker today. It checked out fine without any fast heart rates, and had excellent capture thresholds. Current Visit: Yes (2) At high risk for falls Status: Acute Assessment and plan: Fall prevention protocol in place. Current Visit: Yes (3) Hypertension Status: Chronic Assessment and plan: Metoprolol tartrate 12.5 mg p.o. twice daily was added June 25. Current Visit: Yes (4) PAF (paroxysmal atrial fibrillation) Status: Chronic Current Visit: Yes (5) Chronic anticoagulation Status: Acute Assessment and plan: INR today is 2.8. Current Visit: Yes Cardiology - PN: Subj Interval history: MACHINERY MECHANIC: DR. BARILLAS Summary: Ms. Valdez, 81 WF, has risk factors significant for: age, hypercholesterolemia, sedentary lifestyle. History of biventricular pacemaker, PAF, TIA (takes warfarin for stroke prevention), protein S deficiency and hypercoagulable state, COPD. Admitted June 21, 2017 after (recurrent) syncope, falling and hurting her right side chest, left thumb (fracture). She is followed by Dr. Joya, neurologist, for recurrent syncope. Patient reports she was getting out of bed, sitting on the side of the bed when she stood up and experienced complete syncope. She awakened lying on the floor in a significant amount of pain in believes she was out approximately 2-3 minutes. Her only chest pain is that which is reproducible after the fall. She is normally fairly active and can perform her activities without chest pain, heaviness or tightness. Troponin initially 0.4 now normalized. She has been diagnosed with vasovagal syncope related to mild dehydration. Apparently, patient has had syncope for many years thought to be vasovagal in nature. She reports she did have a seizure many years ago but does not take seizure medication. She did not bite her tongue nor lose her bowel or bladder control during this episode. She has had her pacemaker interrogated several episodes after having syncopal episodes with no known arrhythmia however not interrogated during this admission. She has undergone carotid ultrasounds May 18, 2017 which revealed: 60-79% stenosis in the proximal right internal carotid artery, 40-59% stenosis in the proximal left internal carotid artery. Cardiolite stress test 12/27/2016: Normal perfusion study, EF 58%, low risk for future cardiovascular events. Reviewing her telemetry strips, she has had an episode of brief NSVT, atrial fib, possible bigeminy. Chest x-ray reveals increasing by basilar pulmonary edema/infiltrate superimposed on chronic lung disease. June 26, 2017: Ms. Valdez is seen resting in bed with family at bedside. She denies any chest pain. Oxygen is in use via nasal cannula and she states she is only short of breath when she gets up and moves around. She had bronchoscopy with Dr. Douglass this morning. Exam (Progress Note) - Constitutional Vitals: Period Temp Pulse Resp BP Sys/Schreiber Pulse Ox Last 24 Hr 96.8 F-98.2 F 59-70 10-20 139-199/65-98 92-99 General appearance: normal weight, no acute distress - Head Head exam: Absent: abrasion, hematoma - Eye Eye exam: Present: EOMI Pupils: Present: CELIO - Neck Neck exam: Absent: lymphadenopathy, tenderness - Respiratory Respiratory exam: Present: clear to auscultation bilaterally, other (Oxygen in use via nasal cannula). Absent: accessory muscle use, chest wall tenderness - Cardiovascular Cardiovascular exam: Present: irregular rhythm (Controlled rate). Absent: diastolic murmur, systolic murmur - GI/Abdominal GI/Abdominal exam: Present: normal bowel sounds, soft. Absent: distended, tenderness - Extremities Exam Extremities exam: Present: normal capillary refill, other (Splint and dressing noted to left hand). Absent: calf tenderness, edema - Neurological Exam Neurological exam: Present: alert, oriented X3 - Psychiatric Psychiatric exam: Present: normal affect, normal mood - Skin Skin exam: Present: warm, dry Result/EKG - Labs CBC & BMP: 06/26/17 06:32 06/26/17 06:32 Lab Results: I have reviewed the past 24 hour labs Labs: Laboratory Results - last 24 hr 06/26/17 06/26/17 06/26/17 06:32 06:32 06:32 WBC 6.5 RBC 4.27 Hgb 11.2 L Hct 35.1 L MCV 82.2 L MCH 26 L MCHC 31.9 L RDW 18.5 H Plt Count 256 MPV 10.9 Neut % (Auto) 82.1 H Lymph % (Auto) 10.9 L [place] % (Auto) 5.9 Eos % (Auto) 0.0 Baso % (Auto) 0.0 Neut # (Auto) 5.3 Lymph # (Auto) 0.7 L [place] # (Auto) 0.4 Eos # (Auto) 0.0 Baso # (Auto) 0.0 Immature Gran % 1.1 Nucleated RBC % 0.0 Immature Gran # 0.07 Nucleated RBCs # 0.00 Immature Plt Fraction 0.0 INR 2.8 PT Patient/Control Mix 30.9 Sodium 142 Potassium 3.7 Chloride 100 Carbon Dioxide 39 H Anion Gap 6.7 BUN 22 H Creatinine 1.00 GFR Calculation 54 BUN/Creatinine Ratio 22.00 H Glucose 120 H Calculated Osmolality 286.1 Calcium 9.1 Magnesium 1.9 Triglycerides 79 Cholesterol 162 LDL Cholesterol 82.0 VLDL Cholesterol 15.8 HDL Cholesterol 63 H Heart Disease Risk Ratio 2.57 Free T4 1.75 H TSH 3rd Generation 0.062 L - Diagnostic Findings Procedure: Chest x-ray: report reviewed by me - EKG EKG results: interpreted by me EKG shows: atrial fibrillation Quality Measures - VTE Contraindication to Pharmacological VTE Prophylaxis: Already on Theraputic Agent , No Prophylaxis Needed Vel Iglesias Michael, MD, personally performed the services described in this documentation, ascribed by Susi Mares RN in my presence, and it is both accurate and complete 739 .
[2017-06-26] MEDS: ESCITALOPRAM 10 MG TABLET PO SCH (21:21)
[2017-06-26] MEDS: TEMAZEPAM 15 MG CAPSULE PO PRN (21:23)
[2017-06-27] MEDS: methylPREDNISolone SOD SUC 40 MG/1 ML VIAL IV SCH ×2 (00:58→09:50)
[2017-06-27 05:19] LABS: Hematocrit 35.4 VOL% (35.7-47.0); Hemoglobin 10.9 GM/DL (12.0-16.0); Immature Granulocytes % 0.5 %; Immature Granulocytes Absolute 0.03 #; Lymphocytes # 0.8 10*3/uL (1.4-4.0); Lymphocytes % 12.8 % (21.3-54.2); Mean Corpuscular HGB Conc 30.8 GM/DL (32-36); Mean Corpuscular Hemoglobin 26 PG (27-34); Mean Corpuscular Volume 83.3 FL (87-102); Monocytes # 0.3 10*3/uL (0.11-0.8); Monocytes % 4.5 % (1.7-12.7); Neutrophils # 5.2 10*3/uL (1.4-7.4); Neutrophils % 82.2 % (38.7-73.9); Platelet Count 212 T/CUMM (130-400); Red Blood Count 4.25 MC/CUMM (3.8-5.5); Red Cell Distribution Width 18.1 % (9.3-17.3); White Blood Count 6.3 T/CUMM (4-12)
[2017-06-27 05:29] LABS: INR 3.4
[2017-06-27 05:42] LABS: PT Patient Result 35.7 SECS
[2017-06-27] MEDS ORDERED: DOCUSATE SODIUM 100 MG CAPSULE PO PRN (05:47)
[2017-06-27 06:05] LABS: Calcium 8.6 MG/DL (8.5-10.1); Osmolality,Calculated 279.7 MOS/KG (273-304); Potassium 3.2 MMOL/L (3.5-5.1)
--- NOTE | 2017-06-27 06:30 | Discharge Summary ---
Hospital Course - Hospital Course Hospital Course: Mrs. Valdez is an 81-year-old lady with history of chronic lung disease and systolic congestive heart failure with biventricular pacemaker placement. Patient had a syncope episode at home resulting in injury on her right rib, causing some soreness and fracture of her left thumb. Orthopedic was consulted, and the thumb was splinted.She also has a history of pulmonary fibrosis associated with tobacco use.She was admitted to telemetry, CT head showed no acute intracranial abnormality.Cardiac enzymes were negative. Pulmonary saw in consultation. She was given some steroids, bronchodilators. She subsequently under went bronchoscopy, because she could not clear her secretions and her CXR looked awful. Bronchial washings showed no fungal elements and gram stain was noted.Patient was also continued on her anticoagulation for her Parasysmal A.Fib. An echocardiogram in 2016 showing normal LV function with a right ventricular systolic pressure of 60-65 mmHg is chronically maintained on a stable dose of Lasix.Cardiology saw in consultation and her pacemaker was interrogated by a [employer] inbound customer service representative. It checked out fine without any fast heart rates, and had excellent capture thresholds.Carotid doppler USS showed a High-grade stenosis of the right internal carotid artery suspected with heavy calcified plaque and elevated velocity ratios. Findings suggest at least 70% or greater stenosis right internal carotid artery. Heavy calcified plaque in the left internal carotid artery velocity ratios and ICA/CCA ratio suggest 16-49% stenosis. We will add statin to her regime and schedule an out patient Vascular consult. We will try and get a CTA prior to discharge. Patient really wants to go home today. She is a high risk for fall so adding aspirin to her regime will increase her bleed risk.This am, she feels great, vitals are stable, we will continue to supplement potassium and discharge today. She will get home health and home PT. She will follow up with her PCP in 1week, Cardiology, Pulm and Vascular as scheduled. - Time spent with patient Time with patient DS: Greater than 30 minutes (Time spent greater than 35mins) Diagnosis - Discharge Diagnosis (1) Syncope Status: Acute (2) Hypertension Status: Chronic (3) PAF (paroxysmal atrial fibrillation) Status: Chronic (4) Acute exacerbation of chronic obstructive pulmonary disease (COPD) Status: Acute (5) Lupus Status: Chronic (6) Congestive heart failure Status: Chronic (7) Phalanx, distal fracture of finger Status: Acute (8) PVD (peripheral vascular disease) Status: Acute (9) Carotid arterial disease Status: Acute Discharge Plan - Discharge Data Disposition: Home Health Service Condition at Discharge: Stable Discharge Diet: heart healthy Activity: resume usual activities as tolerated - Discharge Medications New Dornase Kilo [Pulmozyme] 2.5 mg RESP TX RT Q12H #7 vial Lisinopril [Prinivil] 5 mg PO DAILY #30 tablet Methocarbamol Tab [Robaxin Tab] 500 mg PO QID PRN #20 tablet PRN Reason: Muscle Pain Pantoprazole Tab [Protonix Tab] 40 mg PO DAILY #30 tablet Potassium Chloride Cap/Tab [K Dur] 20 meq PO DAILY #30 tablet predniSONE TAB [PredniSONE] See Taper PO DAILY #20 tablet amLODIPine [Norvasc] 10 mg PO DAILY #30 tablet Furosemide Tab [Lasix Tab] 40 mg PO BID DIURETIC #60 tablet Metoprolol Tartrate Tab [Lopressor Tab] 12.5 mg PO BID #60 tablet Atorvastatin [Lipitor] 10 mg PO BEDTIME #30 tablet Continue Escitalopram [Lexapro] 10 mg PO QPM Amiodarone HCl 200 mg PO QAM Albuterol/Ipratropium Neb [Duoneb] 3 ml RESP TX RT Q4H PRN PRN Reason: Shortness Of Breath/Wheezing Temazepam 30 mg PO BEDTIME Acetaminophen Tab [Tylenol Tab] 325 mg PO Q4H PRN tablet PRN Reason: fever, headache/body aches Arformoterol Neb [Brovana] 15 mcg RESP TX RT BID Fludrocortisone [Florinef] 0.1 mg PO DAILY Discontinued Furosemide 40 mg PO QAM Warfarin Sodium 2 mg PO BEDTIME Pantoprazole Tab [Protonix Tab] 40 mg PO QAM - Follow Up or Referral - Forms/Instructions Additional Discharge Instructions: Schedule Outpatient vascular consult. Follow PCP in 1week. Follow Cardiology and Pulmonology as scheduled. Patient can go home after her CTA neck. Exam - Constitutional Vitals: Period Temp Pulse Resp BP Sys/Schreiber Pulse Ox Last 24 Hr 97.5 F-98.6 F 58-89 10-20 139-199/64-98 90-99 General appearance: no acute distress - Head Head exam: Present: normal inspection - Respiratory Respiratory exam: Present: clear to auscultation bilaterally - Cardiovascular Cardiovascular exam: Present: other (s1 and s2) - GI/Abdominal GI/Abdominal exam: Present: normal bowel sounds - Extremities Exam Extremities exam: Present: normal inspection, other (thumb bandaged) Discharge Results Procedures and tests throughout hospitalization: Pending Orders 06/22/17 11:06 Occult Blood, Stool Routine 06/26/17 Bronchial Washings C & Gram St Routine Fungal Culture w/ Prep Routine 06/26/17 07:56 Cytology Request Routine 06/27/17 04:00 XR chest 1V portable IN AM 06/27/17 05:04 Comp Blood Count Auto Diff IN AM 06/28/17 04:00 Prothrombin Time INR IN AM 06/29/17 04:00 Prothrombin Time INR IN AM 06/30/17 04:00 Prothrombin Time INR IN AM 07/01/17 04:00 Prothrombin Time INR IN AM Labs on day of discharge: Labs from last 24 hours 06/27/17 06/27/17 06/27/17 05:04 05:04 05:04 WBC 6.3 RBC 4.25 Hgb 10.9 L Hct 35.4 L MCV 83.3 L MCH 26 L MCHC 30.8 L RDW 18.1 H Plt Count 212 MPV 11.0 Neut % (Auto) 82.2 H Lymph % (Auto) 12.8 L [place] % (Auto) 4.5 Eos % (Auto) 0.0 Baso % (Auto) 0.0 Neut # (Auto) 5.2 Lymph # (Auto) 0.8 L [place] # (Auto) 0.3 Eos # (Auto) 0.0 Baso # (Auto) 0.0 Immature Gran % 0.5 Nucleated RBC % 0.0 Immature Gran # 0.03 Nucleated RBCs # 0.00 Immature Plt Fraction 0.0 INR 3.4 PT Patient/Control Mix 35.7 Sodium 138 Potassium 3.2 L Chloride 98 Carbon Dioxide 39 H Anion Gap 4.2 L BUN 25 H Creatinine 1.00 GFR Calculation 54 BUN/Creatinine Ratio 25.00 H Glucose 113 H Calculated Osmolality 279.7 Calcium 8.6 Magnesium Triglycerides Cholesterol LDL Cholesterol VLDL Cholesterol HDL Cholesterol Heart Disease Risk Ratio Free T4 TSH 3rd Generation 06/26/17 06/26/17 06/26/17 06:32 06:32 06:32 WBC 6.5 RBC 4.27 Hgb 11.2 L Hct 35.1 L MCV 82.2 L MCH 26 L MCHC 31.9 L RDW 18.5 H Plt Count 256 MPV 10.9 Neut % (Auto) 82.1 H Lymph % (Auto) 10.9 L [place] % (Auto) 5.9 Eos % (Auto) 0.0 Baso % (Auto) 0.0 Neut # (Auto) 5.3 Lymph # (Auto) 0.7 L [place] # (Auto) 0.4 Eos # (Auto) 0.0 Baso # (Auto) 0.0 Immature Gran % 1.1 Nucleated RBC % 0.0 Immature Gran # 0.07 Nucleated RBCs # 0.00 Immature Plt Fraction 0.0 INR 2.8 PT Patient/Control Mix 30.9 Sodium 142 Potassium 3.7 Chloride 100 Carbon Dioxide 39 H Anion Gap 6.7 BUN 22 H Creatinine 1.00 GFR Calculation 54 BUN/Creatinine Ratio 22.00 H Glucose 120 H Calculated Osmolality 286.1 Calcium 9.1 Magnesium 1.9 Triglycerides 79 Cholesterol 162 LDL Cholesterol 82.0 VLDL Cholesterol 15.8 HDL Cholesterol 63 H Heart Disease Risk Ratio 2.57 Free T4 1.75 H TSH 3rd Generation 0.062 L DS: Provider Date of admission: 06/21/17 16:31 Primary care physician: Renea Cates, Attending physician on admission: Kary Loaiza MD Consults: 06/21/17 18:27 Consult to Physician [CONS] Routine Comment: copd Consulting Provider: Patrick Douglass Consult to Specialist Group: Pulmonology Consult Notification Comment: left message at 0835 06/21/17 18:33 Consult to Pastoral Services [CONS] Routine Comment: Pastoral Screen: Request [employer] Worker Visit Pastoral Screen Source of Request: Patient 06/25/17 12:20 Consult to Physician [CONS] Routine Comment: Patient requesting to see orthopedics finger # Consulting Provider: Lai Mora Jr. When should Consulting Provider be notified: Now 06/25/17 12:23 Consult to Physician [CONS] Routine Comment: Please evaluate for orthostatic hypotension Consulting Provider: Porfirio Sears Discharging clinician: Denise Fernandes MD
[2017-06-27 06:44] LABS: Band Neutrophils 1 % (0-10); Lymphocytes 2 % (20-55); Segmented Neutrophils 94 % (50-85); Total Cells Counted 100
[2017-06-27 06:45] LABS: Hypochromasia 2+; Microcytosis Slight; Platelet Estimate Adequate
[2017-06-27] MEDS: ARFORMOTEROL 15 MCG/2 ML NEB RESP TX SCH (07:32)
[2017-06-27] MEDS: DORNASE ALFA 2.5 MG/2.5 ML VIAL RESP TX SCH (07:37)
[2017-06-27] MEDS ORDERED: PSYLLIUM POWDER 3.7 GM/PACK PO SCH (09:00)
[2017-06-27] MEDS: FUROSEMIDE 40 MG/4 ML VIAL IV SCH (09:43)
[2017-06-27] MEDS: AMIODARONE 200 MG TABLET PO SCH (09:44)
[2017-06-27] MEDS: FLUDROCORTISONE 0.1 MG TABLET PO SCH (09:44)
[2017-06-27] MEDS: LISINOPRIL 5 MG TABLET PO SCH (09:45)
[2017-06-27] MEDS: amLODIPine 10 MG TABLET PO SCH (09:45)
[2017-06-27] MEDS: PANTOPRAZOLE 40 MG TABLET PO SCH (09:45)
[2017-06-27] MEDS: METOPROLOL TARTRATE 25 MG TABLET PO SCH (09:45)
--- NOTE | 2017-06-27 09:55 | Pulmonology Progress Note ---
Pulmonary - PN: Subj Interval history: Patient is an 81-year-old white lady that has significant COPD and has had chronic cardiac problems. She does have a pacemaker. She had a recent syncopal episode. Her chest soreness is better and her breathing is much better today. She does not feel as congested. She says her shortness of breath is better. She is not lightheaded when she gets up and moves around. Overall she is feeling much better. Exam (Progress Note) - Constitutional Vitals: Period Temp Pulse Resp BP Sys/Schreiber Pulse Ox Last 24 Hr 97.5 F-98.5 F 60-89 18-20 139-178/64-80 90-98 Exam: General appearance: no acute distress, under weight, other (Patient looks comfortable and is breathing comfortably.) - Head Head exam: Present: normal inspection, normocephalic - Eye Eye exam: Present: EOMI. Absent: scleral icterus Pupils: Present: CELIO - ENT ENT exam: Present: normal exam - Neck Neck exam: Present: normal inspection. Absent: lymphadenopathy, thyromegaly - Respiratory Respiratory exam: Present: She has distant breath sounds but is moving air better and her lungs sound much clearer today. - Cardiovascular Cardiovascular exam: Present: regular rate and rhythm, she does have a soft murmur . Absent: gallop, tachycardia - GI/Abdominal GI/Abdominal exam: Present: normal bowel sounds, soft. Absent: organomegaly, tenderness - Extremities Exam Extremities exam: Absent: calf tenderness, edema - Neurological Exam Neurological exam: Present: alert, oriented X3, CN II-XII intact - Psychiatric Psychiatric exam: Present: normal affect - Skin Skin exam: Present: warm, dry Results - Labs CBC & BMP: 06/27/17 05:04 06/27/17 05:04 - Diagnostic Findings Procedure: Chest x-ray: image reviewed by me, report reviewed by me (Chest x- ray looks much better with less infiltrates.) Assessment and Plan (1) COPD exacerbation Status: Acute Assessment and plan: Patient has significant COPD but feels like she is breathing better and having much less congestion now. She will probably need to take some steroids when she goes home. Current Visit: No (2) Lupus Status: Acute Assessment and plan: She is not having problems with lupus at present. Current Visit: No (3) Vasovagal syncope Status: Acute Assessment and plan: She blacked out and is not clear exactly why at present. Her blood pressure is actually up now and her heart rate is stable. Her pacemaker will be checked. She is not having any dizziness now. She is getting a CTA of her arteries. She is stable at present. Current Visit: Yes (4) Contusion of right chest wall Status: Acute Assessment and plan: The patient bruised her chest wall and is a little sore now. Her chest wall feels much better now. Current Visit: Yes (5) Congestive heart failure Status: Acute Assessment and plan: Her x-ray does look much better today. Current Visit: Yes (6) Pacemaker Status: Chronic Assessment and plan: The patient does have a pacemaker. Her pacemaker did check out okay. Current Visit: Yes (7) Esophageal motility disorder Status: Chronic Assessment and plan: She says she is swallowing okay at times. Current Visit: No Specialty Discharge - Follow Up or Referrals Follow up with: Lai Mora Jr., MD [Physician] - 07/10/17 8:45 am Patrick Douglass MD [Physician] - (2-3 weeks)
[2017-06-27] MEDS ORDERED: predniSONE 20 MG TABLET PO SCH (10:00)
--- NOTE | 2017-06-27 10:34 | CT Report ---
History: Carotid stenosis. Abnormal carotid ultrasound Date: 06/27/2017 Study: CT angiogram of the neck with IV contrast Comparison exam: No previous Thin spiral CT sections were obtained through the neck following 80 mL Omnipaque 350 IV contrast. Multiplanar reconstruction images are also evaluated. 3-D reconstruction images were also generated, archived, and analyzed. There is normal arch anatomy. There is moderate aortic arch calcification. There is no high-grade stenosis at the origins of the innominate or left common carotid arteries. There is 80% diameter reduction narrowing of the proximal left subclavian artery related to calcified plaque. There is flow in the vertebral arteries bilaterally, though the right vertebral artery is threadlike. There is 58% diameter reduction narrowing of the right internal carotid artery and 70% diameter reduction narrowing of the left internal carotid artery using NASCET criteria, related to eccentric moderately calcified plaque. The normal left ICA measures 4.2 mm diameter; the normal right ICA measures 4.2 mm diameter. There is mild to moderate narrowing at the origin of either external carotid artery. Incidental note is made of moderate to large layering right pleural effusion and mild left pleural effusion. There is no obvious soft tissue mass at the cervical level where seen. There is mild cervical spondylosis throughout. There is moderate degenerative disc narrowing at C5-C6. This CT exam was performed using one or more the following dose reduction techniques: Automated exposure control, adjustment of the MA and/or KV according to patient size, or use of iterative reconstruction technique. Impression: 58% diameter reduction narrowing of the right internal carotid artery and 70% diameter reduction narrowing of the left internal carotid artery 80% diameter reduction narrowing of the proximal left subclavian artery PROCEDURE INTERPRETED AT [facility] [place] DEPARTMENT OF RADIOLOGY Final Report Signed by: Dr. Kaila Currie
--- NOTE | 2017-06-27 10:50 | XRay Report ---
Exam: XR chest 1V portable Date: 06/27/2017 4:00 AM Indication: Post bronchoscopy Comparison: 06/25/2017 Technical: AP Findings: Mild cardiomegaly is present. A cardiac pacing device with atrial ventricular leads present. Underlying COPD and fibrotic scarring is present with low volume right effusion and superimposed infiltrates in the right base. A right-sided rib fracture is present involving the fifth and sixth ribs on the right. ASVD is present. No pneumothorax present. Impression: 1. Right base pleural effusion and underlying pneumonic infiltrate 2. COPD changes with fibrotic scarring 3. Cardiomegaly with cardiac pacing device superimposed mild cardiac decompensation is also suspected. 4. Multiple right-sided rib fractures. These are unchanged from prior exam involving the fifth and sixth rib PROCEDURE INTERPRETED AT [facility] DEPARTMENT OF RADIOLOGY Final Report Signed by: Dr. Jt Thorne
[2017-06-27 11:03] VITALS: BP 149/74
--- NOTE | 2017-06-27 12:17 | Pathology Report from [facility] ---
[facility] ACCESSION # : [id number] PATIENT NAME : Josey Valdez ORDERING DR : LALY BANUELOS MD CLINICAL HX: COPD with a mucous plugging POST-OP DX: Same SPECIMEN INFO: Washing,Bronchial,MICHAEL - 15 mls greyish white, mucoid CLASS: I CLASS COMMENTS: Benign respiratory epithelium.CELL BLOCK: Same. CLASS LEGEND: CLASS 0 Material inadequate for diagnosis because of (see comment) CLASS I Absence of atypical or abnormal cells CLASS II Atypical Cytology but no evidence of malignancy CLASS III Cytology suggestive of but not conclusive for malignancy CLASS IV Cytology strongly suggestive of malignancy CLASS V Cytology conclusive for malignancy COLLECTED DATE: 06/26/2017 [facility] REPORT DATE: 06/27/2017 ELECTRONICALLY SIGNED BY: Damion Leone M.D. 06/27/2017 - 10:13:48 [facility]
[2017-06-28] MEDS ORDERED: FUROSEMIDE 40 MG TABLET PO SCH (09:00)
== END 2017-06-27 12:35 | disposition home health service (06) | DRG 640 ==
LOC: EDBD → EDUNIT# → N.ED 12:52 → SUATTDRO 16:31 → N.EDINP 16:31 → N.TELES 18:26 → N.3E 06-25 22:30
PROVIDERS: ADMIT Family Medicine; ATTEND Internal Medicine

== ENCOUNTER 2018-06-22 16:35 | Inpatient (IN) ==
[2018-06-22] MEDS ORDERED: ALBUTEROL NEB SOLN 5 MG/ML 20 ML/BOTTLE CONT NEB STA (17:02)
[2018-06-22 17:10] LABS: Basophils % 0.4 % (0.0-0.8); Eosinophils % 0.1 % (0.00-10.9); Hematocrit 45.2 VOL% (35.7-47.0); Hemoglobin 14.8 GM/DL (12.0-16.0); Immature Granulocytes % 0.4 %; Immature Granulocytes Absolute 0.04 #; Lymphocytes # 1.1 10*3/uL (1.4-4.0); Lymphocytes % 11.7 % (21.3-54.2); Mean Corpuscular HGB Conc 32.7 GM/DL (32-36); Mean Corpuscular Hemoglobin 32 PG (27-34); Mean Corpuscular Volume 97.8 FL (87-102); Mean Platelet Volume 11.7 FL (9.6-12.0); Monocytes % 10.2 % (1.7-12.7); Neutrophils # 7.5 10*3/uL (1.4-7.4); Neutrophils % 77.2 % (38.7-73.9); Platelet Count 143 T/CUMM (130-400); Red Blood Count 4.62 MC/CUMM (3.8-5.5); Red Cell Distribution Width 14.5 % (9.3-17.3); White Blood Count 9.8 T/CUMM (4-12)
[2018-06-22] MEDS ORDERED: cefTRIAXone 1,000 MG in SODIUM CHLORIDE 0.9% 100 ML IV STA (17:20)
[2018-06-22] MEDS ORDERED: SODIUM CHLORIDE 0.9% 1,000 ML IV STA (17:21)
[2018-06-22] MEDS ORDERED: ACETAMINOPHEN 325 MG TABLET PO ONE (17:21)
[2018-06-22 17:33] LABS: Albumin 3.4 G/DL (3.4-5.0); Bilirubin,Total 0.6 MG/DL (0.2-1.0); CKMB % 2.1 %; Calcium 8.5 MG/DL (8.5-10.1); Osmolality,Calculated 272.2 MOS/KG (273-304); Potassium 3.9 MMOL/L (3.5-5.1); Total Protein 8.6 G/DL (6.4-8.3)
[2018-06-22 17:34] LABS: Troponin I 0.236 NG/ML (0.00-0.045)
[2018-06-22 17:35] LABS: Partial Thromboplastin Time 28.5 SECS (0-40)
[2018-06-22 17:40] LABS: INR 1.5; PT Patient Result 15.2 SECS
[2018-06-22 17:44] LABS: ABG Base Excess -0.5 MMOL/L (-2.5-2.5); ABG Oxygen Saturation 96.1 % (95-100); ABG PCO2 46.8 MM HG (35-48); ABG PH 7.349 (7.35-7.45); ABG PO2 90.3 MM HG (80-95); ABG TCO2 22.1 MMOL/L (23-27); Allen Test Positive; Pt O2 Delivery Device Other
[2018-06-22 17:46] LABS: Lactic Acid 1.8 MMOL/L (0.4-2.0)
[2018-06-22] MEDS ORDERED: FUROSEMIDE 40 MG/4 ML VIAL IV STA (18:14)
[2018-06-22] MEDS ORDERED: ASPIRIN CHEW 81 MG TABLET PO STA (18:14)
[2018-06-22] MEDS ORDERED: methylPREDNISolone SOD SUC 125 MG/2 ML VIAL IV STA (18:47)
[2018-06-22] MEDS ORDERED: guaiFENesin/DM ER 600-30 MG TABLET PO PRN (19:38)
[2018-06-22] MEDS ORDERED: ACETAMINOPHEN 325 MG TABLET PO PRN (19:38)
[2018-06-22] MEDS: TEMAZEPAM 15 MG CAPSULE PO SCH (22:14)
[2018-06-23] MEDS: ALBUTEROL/IPRATROPIUM 3 ML NEB RESP TX SCH ×4 (00:26→19:56)
[2018-06-23 06:08] LABS: Basophils % 0.2 % (0.0-0.8); Hematocrit 44.6 VOL% (35.7-47.0); Hemoglobin 14.7 GM/DL (12.0-16.0); Immature Granulocytes % 0.3 %; Immature Granulocytes Absolute 0.02 #; Lymphocytes # 0.5 10*3/uL (1.4-4.0); Mean Corpuscular Hemoglobin 32 PG (27-34); Mean Corpuscular Volume 95.7 FL (87-102); Mean Platelet Volume 12.2 FL (9.6-12.0); Monocytes # 0.2 10*3/uL (0.11-0.8); Monocytes % 3.9 % (1.7-12.7); Neutrophils # 5.1 10*3/uL (1.4-7.4); Neutrophils % 87.6 % (38.7-73.9); Platelet Count 135 T/CUMM (130-400); Red Blood Count 4.66 MC/CUMM (3.8-5.5); Red Cell Distribution Width 14.4 % (9.3-17.3); White Blood Count 5.9 T/CUMM (4-12)
[2018-06-23 06:13] LABS: INR 1.4; PT Patient Result 14.7 SECS
[2018-06-23 06:31] LABS: Calcium 8.9 MG/DL (8.5-10.1); Potassium 3.7 MMOL/L (3.5-5.1)
[2018-06-23 06:37] LABS: Band Neutrophils 4 % (0-10); Lymphocytes 6 % (20-55); Segmented Neutrophils 87 % (50-85); Total Cells Counted 100
[2018-06-23 06:38] LABS: Platelet Estimate Decreased
[2018-06-23] MEDS: PANTOPRAZOLE 40 MG TABLET PO SCH (08:19)
[2018-06-23] MEDS: AMIODARONE 200 MG TABLET PO SCH (08:19)
[2018-06-23] MEDS: methylPREDNISolone SOD SUC 40 MG/1 ML VIAL IV SCH ×2 (08:21→20:33)
[2018-06-23] MEDS: WARFARIN 3 MG TABLET PO SCH (17:15)
[2018-06-23] MEDS ORDERED: WARFARIN 2 MG TABLET PO SCH (18:00)
[2018-06-23] MEDS: TEMAZEPAM 15 MG CAPSULE PO SCH (20:33)
[2018-06-23] MEDS: ESCITALOPRAM 10 MG TABLET PO SCH (20:33)
[2018-06-24] MEDS: ALBUTEROL/IPRATROPIUM 3 ML NEB RESP TX SCH ×4 (00:35→19:22)
[2018-06-24 06:04] LABS: INR 1.8; PT Patient Result 18.4 SECS
[2018-06-24] MEDS: methylPREDNISolone SOD SUC 40 MG/1 ML VIAL IV SCH ×2 (08:02→20:39)
[2018-06-24] MEDS: PANTOPRAZOLE 40 MG TABLET PO SCH (09:32)
[2018-06-24] MEDS: AMIODARONE 200 MG TABLET PO SCH (09:32)
[2018-06-24 11:32] LABS: Albumin 3.2 G/DL (3.4-5.0); Bilirubin,Direct 0.19 MG/DL (0.0-0.20); Bilirubin,Indirect 0.2 MG/DL (0.0-1.0); Bilirubin,Total 0.4 MG/DL (0.2-1.0); Total Protein 7.7 G/DL (6.4-8.3)
[2018-06-24 16:44] LABS: Hepatitis A Ab IgM Quant 0.08 Index; Hepatitis A Ab IgM Result Negative (Negative); Hepatitis B Core IgM Quant 0.07 Index; Hepatitis B Core IgM Result Negative (Negative); Hepatitis B Surface Ag Quant < 0.10 Index; Hepatitis B Surface Ag Result Negative (Negative); Hepatitis C Virus Ab Result Negative (Negative)
[2018-06-24] MEDS: WARFARIN 3 MG TABLET PO SCH (16:59)
[2018-06-24] MEDS: ESCITALOPRAM 10 MG TABLET PO SCH (20:39)
[2018-06-24] MEDS: TEMAZEPAM 15 MG CAPSULE PO SCH (20:39)
[2018-06-25] MEDS: ALBUTEROL/IPRATROPIUM 3 ML NEB RESP TX SCH ×4 (00:26→20:22)
[2018-06-25 05:55] LABS: Hematocrit 41.8 VOL% (35.7-47.0); Hemoglobin 14.3 GM/DL (12.0-16.0); Immature Granulocytes % 0.4 %; Immature Granulocytes Absolute 0.03 #; Lymphocytes # 0.7 10*3/uL (1.4-4.0); Lymphocytes % 9.1 % (21.3-54.2); Mean Corpuscular HGB Conc 34.2 GM/DL (32-36); Mean Corpuscular Hemoglobin 33 PG (27-34); Mean Corpuscular Volume 95.4 FL (87-102); Mean Platelet Volume 12.1 FL (9.6-12.0); Monocytes # 0.3 10*3/uL (0.11-0.8); Monocytes % 4.4 % (1.7-12.7); Neutrophils # 6.4 10*3/uL (1.4-7.4); Neutrophils % 86.1 % (38.7-73.9); Platelet Count 158 T/CUMM (130-400); Red Blood Count 4.38 MC/CUMM (3.8-5.5); Red Cell Distribution Width 14.1 % (9.3-17.3); White Blood Count 7.5 T/CUMM (4-12)
[2018-06-25 06:05] LABS: INR 2.6
[2018-06-25 06:18] LABS: Hypochromasia 1+; Lymphocytes 3 % (20-55); Segmented Neutrophils 93 % (50-85); Total Cells Counted 100
[2018-06-25 06:19] LABS: Microcytosis Slight; Ovalocytes Slight; Platelet Estimate Adequate
[2018-06-25 06:28] LABS: PT Patient Result 26.8 SECS
[2018-06-25 06:29] LABS: Albumin 2.8 G/DL (3.4-5.0); Bilirubin,Total 0.9 MG/DL (0.2-1.0); Calcium 9.1 MG/DL (8.5-10.1); Osmolality,Calculated 282.7 MOS/KG (273-304); Total Protein 7.4 G/DL (6.4-8.3)
[2018-06-25] MEDS: PANTOPRAZOLE 40 MG TABLET PO SCH (08:05)
[2018-06-25] MEDS: methylPREDNISolone SOD SUC 40 MG/1 ML VIAL IV SCH (08:05)
[2018-06-25] MEDS: FUROSEMIDE 40 MG/4 ML VIAL IV SCH ×2 (08:06→16:11)
[2018-06-25] MEDS: CARVEDILOL 3.125 MG TABLET PO SCH ×2 (13:00→21:06)
[2018-06-25] MEDS ORDERED: WARFARIN 2.5 MG TABLET PO SCH (18:00)
[2018-06-25] MEDS: ESCITALOPRAM 10 MG TABLET PO SCH (21:06)
[2018-06-25] MEDS: TEMAZEPAM 15 MG CAPSULE PO SCH (21:06)
[2018-06-26] MEDS: ALBUTEROL/IPRATROPIUM 3 ML NEB RESP TX SCH ×2 (01:27→07:18)
[2018-06-26 05:57] LABS: Basophils % 0.1 % (0.0-0.8); Eosinophils % 0.1 % (0.00-10.9); Hematocrit 44.2 VOL% (35.7-47.0); Hemoglobin 14.7 GM/DL (12.0-16.0); Immature Granulocytes % 0.4 %; Immature Granulocytes Absolute 0.03 #; Lymphocytes # 1.7 10*3/uL (1.4-4.0); Lymphocytes % 23.5 % (21.3-54.2); Mean Corpuscular HGB Conc 33.3 GM/DL (32-36); Mean Corpuscular Hemoglobin 32 PG (27-34); Mean Corpuscular Volume 95.9 FL (87-102); Mean Platelet Volume 11.5 FL (9.6-12.0); Monocytes # 0.8 10*3/uL (0.11-0.8); Monocytes % 10.9 % (1.7-12.7); Neutrophils # 4.8 10*3/uL (1.4-7.4); Platelet Count 164 T/CUMM (130-400); Red Blood Count 4.61 MC/CUMM (3.8-5.5); Red Cell Distribution Width 13.9 % (9.3-17.3); White Blood Count 7.4 T/CUMM (4-12)
[2018-06-26 06:08] LABS: INR 3.4
[2018-06-26 06:20] LABS: PT Patient Result 34.7 SECS
[2018-06-26 06:27] LABS: Calcium 8.7 MG/DL (8.5-10.1); Osmolality,Calculated 279.7 MOS/KG (273-304); Potassium 4.4 MMOL/L (3.5-5.1)
[2018-06-26 08:58] LABS: Albumin 2.7 G/DL (3.4-5.0); Bilirubin,Direct 0.21 MG/DL (0.0-0.20); Bilirubin,Indirect 0.3 MG/DL (0.0-1.0); Bilirubin,Total 0.5 MG/DL (0.2-1.0); Total Protein 7.3 G/DL (6.4-8.3)
[2018-06-26] MEDS ORDERED: predniSONE 20 MG TABLET PO SCH (09:00)
[2018-06-26] MEDS: CARVEDILOL 3.125 MG TABLET PO SCH (09:13)
[2018-06-26] MEDS: PANTOPRAZOLE 40 MG TABLET PO SCH (09:13)
[2018-06-26] MEDS: FUROSEMIDE 40 MG/4 ML VIAL IV SCH (09:13)
[2018-06-26 12:15] VITALS: BP 143/65
== END 2018-06-26 14:00 | disposition home health service (06) | DRG 190 ==
LOC: EDUNIT# → N.ED 16:35 → N.EDINP 19:38 → SUATTDRO 19:38 → N.5E 20:13
PROVIDERS: ADMIT Internal Medicine Geriatric Medicine; ATTEND Internal Medicine

== ENCOUNTER 2018-07-24 08:21 | Inpatient (IN) ==
[~2018-07-24 08:21] MED LIST: ceFAZolin 1,000 MG in SYRINGE 1 EACH IV ONE
[2018-07-24 08:46] LABS: INR 1.4; PT Patient Result 14.2 SECS; Partial Thromboplastin Time 30.3 SECS (0-40)
[2018-07-24] MEDS ORDERED: ceFAZolin 1,000 MG VIAL ONE (09:57)
[2018-07-24] MEDS ORDERED: DIAZEPAM 5 MG TABLET PO STA (11:11)
[2018-07-24] MEDS ORDERED: DIAZEPAM 5 MG TABLET ONE (11:14)
[2018-07-24] MEDS ORDERED: HEPARIN 5,000 UNIT/1 ML VIAL ONE (11:32)
[2018-07-24] MEDS ORDERED: LIDOCAINE 1% 20 ML VIAL ONE (11:32)
[2018-07-24] MEDS: LACTATED RINGERS 1,000 ML IV SCH ×3 (14:00→23:31)
[2018-07-24] MEDS ORDERED: PROMETHAZINE 25 MG/1 ML VIAL IM PRN (14:17)
[2018-07-24] MEDS ORDERED: GLUCAGON 1 MG VIAL IM PRN (14:17)
[2018-07-24] MEDS ORDERED: HYDROmorphone 2 MG/1 ML VIAL IV PRN ×2 (14:17)
[2018-07-24] MEDS ORDERED: NALOXONE 0.4 MG/ML VIAL IV PRN (14:17)
[2018-07-24] MEDS ORDERED: ONDANSETRON 4 MG/2 ML VIAL IV PRN (14:17)
[2018-07-24] MEDS ORDERED: oxyCODONE/ACETAMINOPHEN 5-325 MG TABLET PO PRN (14:17)
[2018-07-24] MEDS ORDERED: DEXTROSE 50% 25 GM/50 ML VIAL IV PRN (14:17)
[2018-07-24] MEDS ORDERED: ONDANSETRON 4 MG TABLET PO PRN (14:20)
[2018-07-24] MEDS ORDERED: PROMETHAZINE 25 MG TABLET PO PRN (14:20)
[2018-07-24] MEDS ORDERED: NITROPRUSSIDE 100 MG in DEXTROSE 5% 250 ML IV SCH (14:30)
[2018-07-24] MEDS ORDERED: PROPOFOL 200 MG/20 ML VIAL IV ONE (14:49)
[2018-07-24] MEDS ORDERED: SEVOFLURANE 1 UNIT/15 MINUTE INH ONE (14:49)
[2018-07-24] MEDS ORDERED: HEPARIN 10,000 UNIT/10 ML VIAL ONE (14:49)
[2018-07-24] MEDS ORDERED: HEPARIN/NACL 0.9% 2 UNITS/ML 500 ML IV ONE (14:49)
[2018-07-24] MEDS ORDERED: NEOSTIGMINE 10 MG/10 ML VIAL ONE (14:50)
[2018-07-24] MEDS ORDERED: ALBUTEROL INHALER 8 GM INH ONE (14:50)
[2018-07-24] MEDS ORDERED: ONDANSETRON 4 MG/2 ML VIAL ONE ×2 (14:50→15:00)
[2018-07-24] MEDS ORDERED: NITROGLYCERIN DRIP 50 MG/250 ML BOTTLE IV ONE (14:50)
[2018-07-24] MEDS ORDERED: PROTAMINE SULFATE 50 MG/5 ML VIAL IV ONE (14:50)
[2018-07-24] MEDS ORDERED: SODIUM CHLORIDE 0.9% 250 ML IV ONE (14:50)
[2018-07-24] MEDS ORDERED: ROCURONIUM 100 MG/10 ML VIAL IV ONE (14:50)
[2018-07-24] MEDS ORDERED: PHENYLEPHRINE 10 MG/1 ML VIAL IV ONE (14:50)
[2018-07-24] MEDS ORDERED: SODIUM CHLORIDE 0.9% 1,000 ML IV ONE (14:50)
[2018-07-24] MEDS ORDERED: fentaNYL 100 MCG/2 ML VIAL ONE (14:50)
[2018-07-24] MEDS ORDERED: GLYCOPYRROLATE 0.4 MG/2 ML VIAL ONE (14:50)
[2018-07-24] MEDS ORDERED: HYDROmorphone 2 MG/1 ML VIAL ONE (15:00)
[2018-07-24] MEDS: oxyCODONE/ACETAMINOPHEN 5-325 MG TABLET PO PRN (15:59)
[2018-07-24] MEDS: CARVEDILOL 3.125 MG TABLET PO SCH ×2 (16:00→21:13)
[2018-07-24] MEDS: PHENYLEPHRINE DRIP 40 MG/250 ML PREMIX IV SCH ×2 (19:15→19:25)
[2018-07-24] MEDS: WARFARIN 2.5 MG TABLET PO SCH (19:18)
[2018-07-24] MEDS: TEMAZEPAM 15 MG CAPSULE PO SCH (21:12)
[2018-07-24] MEDS: ESCITALOPRAM 10 MG TABLET PO SCH (21:12)
[2018-07-25 04:03] LABS: INR 1.3; PT Patient Result 13.5 SECS
[2018-07-25] MEDS: LACTATED RINGERS 1,000 ML IV SCH (07:47)
[2018-07-25] MEDS ORDERED: Umeclidinium Brm/Vilanterol Tr [Anoro Ellipta] INH SCH (09:00)
[2018-07-25] MEDS: CARVEDILOL 3.125 MG TABLET PO SCH (09:36)
[2018-07-25] MEDS: FUROSEMIDE 40 MG TABLET PO SCH (09:36)
[2018-07-25] MEDS: PANTOPRAZOLE 40 MG TABLET PO SCH (09:36)
[2018-07-25] MEDS: FLUDROCORTISONE 0.1 MG TABLET PO SCH (09:36)
[2018-07-25] MEDS: ALBUTEROL/IPRATROPIUM 3 ML NEB RESP TX SCH ×2 (13:40→19:53)
[2018-07-25 17:23] LABS: Apearance,Urine CLOUDY (Clear); Bilirubin,Urine Negative (Negative); Blood, Urine Moderate mg/dL (Negative); Glucose,Urine (UA) Negative (Negative); Ketones,Urine 5 mg/dL (Negative); Nitrite,Urine Positive (Negative); Protein,Urine 30 MG/DL; RBC,Urine 42 /HPF (0-4); Squamous Epithelial Cell,Urine Few /HPF (0-10); Urine Color Yellow (Yellow); Urine Specific Gravity 1.006 (1.001-1.035); Urine Urobilinogen < 2.0 EU/DL (0.2-1.0); WBC,Urine 4721 /HPF (0-6)
[2018-07-25] MEDS: WARFARIN 2.5 MG TABLET PO SCH (17:28)
[2018-07-25] MEDS: PHENAZOPYRIDINE 95 MG TABLET PO SCH (17:28)
[2018-07-25] MEDS: SULFAMETHOX/TRIMETHOPRIM 800-160 MG TABLET PO SCH (20:56)
[2018-07-25] MEDS: oxyCODONE/ACETAMINOPHEN 5-325 MG TABLET PO PRN (20:56)
[2018-07-25] MEDS: TEMAZEPAM 15 MG CAPSULE PO SCH (20:56)
[2018-07-25] MEDS: ESCITALOPRAM 10 MG TABLET PO SCH (20:56)
[2018-07-26] MEDS: ALBUTEROL/IPRATROPIUM 3 ML NEB RESP TX SCH ×4 (01:00→19:46)
[2018-07-26 05:45] LABS: INR 1.8
[2018-07-26] MEDS ORDERED: Umeclidinium Brm/Vilanterol Tr [Anoro Ellipta] INH SCH (09:00)
[2018-07-26] MEDS: PANTOPRAZOLE 40 MG TABLET PO SCH (09:15)
[2018-07-26] MEDS: SULFAMETHOX/TRIMETHOPRIM 800-160 MG TABLET PO SCH ×2 (09:15→20:10)
[2018-07-26] MEDS: FUROSEMIDE 40 MG TABLET PO SCH (09:16)
[2018-07-26] MEDS: PHENAZOPYRIDINE 95 MG TABLET PO SCH ×3 (09:16→17:01)
[2018-07-26] MEDS: FLUDROCORTISONE 0.1 MG TABLET PO SCH (09:24)
[2018-07-26] MEDS: predniSONE 20 MG TABLET PO SCH (12:54)
[2018-07-26] MEDS: WARFARIN 2.5 MG TABLET PO SCH (17:00)
[2018-07-26] MEDS: ESCITALOPRAM 10 MG TABLET PO SCH (20:10)
[2018-07-27] MEDS: ALBUTEROL/IPRATROPIUM 3 ML NEB RESP TX SCH ×2 (00:09→07:10)
[2018-07-27] MEDS: TEMAZEPAM 15 MG CAPSULE PO SCH (01:43)
[2018-07-27 05:41] LABS: INR 2.7
[2018-07-27 05:44] LABS: PT Patient Result 27.9 SECS
[2018-07-27 07:31] VITALS: BP 144/51
[2018-07-27] MEDS: PHENAZOPYRIDINE 95 MG TABLET PO SCH (09:32)
[2018-07-27] MEDS: FLUDROCORTISONE 0.1 MG TABLET PO SCH (09:32)
[2018-07-27] MEDS: SULFAMETHOX/TRIMETHOPRIM 800-160 MG TABLET PO SCH (09:32)
[2018-07-27] MEDS: predniSONE 20 MG TABLET PO SCH (09:32)
[2018-07-27] MEDS: PANTOPRAZOLE 40 MG TABLET PO SCH (09:32)
[2018-07-27] MEDS: FUROSEMIDE 40 MG TABLET PO SCH (09:32)
== END 2018-07-27 11:25 | disposition home or self-care (01) | DRG 38 ==
LOC: N.SDSINP 08:21 → N.ICU 12:52 → N.3E 07-25 11:29
PROVIDERS: ADMIT Surgery; ATTEND Surgery

== ENCOUNTER 2018-10-09 10:38 | Inpatient (IN) ==
[2018-10-09] MEDS ORDERED: methylPREDNISolone SOD SUC 125 MG/2 ML VIAL IV STA (11:28)
[2018-10-09] MEDS ORDERED: FUROSEMIDE 100 MG/10 ML VIAL IV STA (11:28)
[2018-10-09] MEDS ORDERED: ONDANSETRON 4 MG/2 ML VIAL IV STA (11:28)
[2018-10-09] MEDS ORDERED: cefTRIAXone 1,000 MG in SODIUM CHLORIDE 0.9% 100 ML IV STA (11:28)
[2018-10-09] MEDS ORDERED: ALBUTEROL 2.5 MG/3 ML NEB RESP TX SCH (11:30)
[2018-10-09] MEDS ORDERED: FUROSEMIDE 20 MG/2 ML VIAL IV STA (12:09)
[2018-10-09 12:20] LABS: Basophils % 0.4 % (0.0-0.8); Eosinophils # 0.1 10*3/uL (0.0-0.87); Eosinophils % 0.6 % (0.00-10.9); Hematocrit 39.6 VOL% (35.7-47.0); Hemoglobin 12.3 GM/DL (12.0-16.0); Immature Granulocytes % 0.1 %; Immature Granulocytes Absolute 0.01 #; Lymphocytes # 1.7 10*3/uL (1.4-4.0); Lymphocytes % 18.2 % (21.3-54.2); Mean Corpuscular HGB Conc 31.1 GM/DL (32-36); Mean Corpuscular Hemoglobin 30 PG (27-34); Mean Corpuscular Volume 95.2 FL (87-102); Mean Platelet Volume 11.5 FL (9.6-12.0); Monocytes % 11.1 % (1.7-12.7); Neutrophils # 6.5 10*3/uL (1.4-7.4); Neutrophils % 69.6 % (38.7-73.9); Platelet Count 160 T/CUMM (130-400); Red Blood Count 4.16 MC/CUMM (3.8-5.5); Red Cell Distribution Width 14.3 % (9.3-17.3); White Blood Count 9.4 T/CUMM (4-12)
[2018-10-09 12:32] LABS: INR 1.8; PT Patient Result 19.5 SECS
[2018-10-09 12:42] LABS: Albumin 2.7 G/DL (3.4-5.0); Calcium 7.9 MG/DL (8.5-10.1); Osmolality,Calculated 275.5 MOS/KG (273-304); Potassium 3.5 MMOL/L (3.5-5.1); Total Protein 8.3 G/DL (6.4-8.3)
[2018-10-09 13:15] LABS: Apearance,Urine CLEAR (Clear); Bilirubin,Urine Negative (Negative); Blood, Urine Negative (Negative); Glucose,Urine (UA) Negative (Negative); Ketones,Urine Negative (Negative); Nitrite,Urine Negative (Negative); Protein,Urine Negative; Urine Color Straw (Yellow); Urine Specific Gravity 1.005 (1.001-1.035); Urine Urobilinogen < 2.0 EU/DL (0.2-1.0); WBC,Urine <1 /HPF (0-6)
[2018-10-09] MEDS ORDERED: MAGNESIUM SULF RIDER 2 GM in PREMIX 1 EACH IV STA (13:15)
[2018-10-09] MEDS ORDERED: ONDANSETRON 4 MG/2 ML VIAL IV PRN (14:03)
[2018-10-09] MEDS ORDERED: ACETAMINOPHEN 325 MG TABLET PO PRN (14:03)
[2018-10-09] MEDS ORDERED: MAGNESIUM SULF RIDER 2 GM in PREMIX 1 EACH IV PRN (14:06)
[2018-10-09] MEDS ORDERED: MAGNESIUM SULF RIDER 4 GM in PREMIX 1 EACH IV PRN (14:06)
[2018-10-09] MEDS ORDERED: ALBUTEROL/IPRATROPIUM 3 ML NEB RESP TX PRN (14:10)
[2018-10-09] MEDS: WARFARIN 2 MG TABLET PO SCH (17:59)
[2018-10-09 20:43] LABS: Troponin I 0.032 NG/ML (0.00-0.045)
[2018-10-09] MEDS: ESCITALOPRAM 10 MG TABLET PO SCH (21:33)
[2018-10-09] MEDS: CARVEDILOL 3.125 MG TABLET PO SCH (21:33)
[2018-10-09] MEDS: TOPIRAMATE 25 MG TABLET PO SCH (21:34)
[2018-10-09] MEDS: TEMAZEPAM 15 MG CAPSULE PO SCH (21:34)
[2018-10-09] MEDS: AZITHROMYCIN INJ 500 MG in SODIUM CHLORIDE 0.9% 250 ML IV SCH (21:35)
[2018-10-09] MEDS: methylPREDNISolone SOD SUC 40 MG/1 ML VIAL IV SCH (23:47)
[2018-10-10 02:50] LABS: Hemoglobin 11.9 GM/DL (12.0-16.0); Immature Granulocytes % 0.2 %; Immature Granulocytes Absolute 0.01 #; Lymphocytes # 1.1 10*3/uL (1.4-4.0); Lymphocytes % 22.1 % (21.3-54.2); Mean Corpuscular HGB Conc 31.3 GM/DL (32-36); Mean Corpuscular Hemoglobin 30 PG (27-34); Mean Corpuscular Volume 94.8 FL (87-102); Mean Platelet Volume 11.9 FL (9.6-12.0); Monocytes # 0.1 10*3/uL (0.11-0.8); Monocytes % 1.9 % (1.7-12.7); Neutrophils # 3.7 10*3/uL (1.4-7.4); Neutrophils % 75.8 % (38.7-73.9); Platelet Count 137 T/CUMM (130-400); Red Blood Count 4.01 MC/CUMM (3.8-5.5); White Blood Count 4.8 T/CUMM (4-12)
[2018-10-10 03:10] LABS: Troponin I 0.018 NG/ML (0.00-0.045)
[2018-10-10 03:17] LABS: Calcium 7.8 MG/DL (8.5-10.1); Osmolality,Calculated 274.8 MOS/KG (273-304); Potassium 2.7 MMOL/L (3.5-5.1); Risk Ratio 2.6; Thyroid Stimulating Hormone 0.111 uIU/ml (0.358-3.74); VLDL CHOLESTEROL 12.8 MG/DL
[2018-10-10 03:24] LABS: INR 1.7; PT Patient Result 18.7 SECS
[2018-10-10] MEDS ORDERED: FUROSEMIDE 20 MG/2 ML VIAL ONE (08:01)
[2018-10-10] MEDS: POTASSIUM CHLORIDE 20 MEQ TABLET PO PRN ×4 (09:05→21:46)
[2018-10-10] MEDS: FLUDROCORTISONE 0.1 MG TABLET PO SCH (09:05)
[2018-10-10] MEDS: MULTIVITAMIN (CENTRUM) TABLET PO SCH (09:05)
[2018-10-10] MEDS: cefTRIAXone 1,000 MG in SYRINGE 1 EACH IV SCH (09:05)
[2018-10-10] MEDS: CARVEDILOL 3.125 MG TABLET PO SCH ×2 (09:05→21:46)
[2018-10-10] MEDS: ASCORBIC ACID 500 MG TABLET PO SCH (09:05)
[2018-10-10] MEDS: FUROSEMIDE 40 MG/4 ML VIAL IV SCH (09:06)
[2018-10-10] MEDS: PANTOPRAZOLE 40 MG TABLET PO SCH (09:06)
[2018-10-10] MEDS: methylPREDNISolone SOD SUC 40 MG/1 ML VIAL IV SCH (13:27)
[2018-10-10] MEDS: WARFARIN 2 MG TABLET PO SCH (18:42)
[2018-10-10] MEDS: TEMAZEPAM 15 MG CAPSULE PO SCH (21:46)
[2018-10-10] MEDS: ESCITALOPRAM 10 MG TABLET PO SCH (21:46)
[2018-10-10] MEDS: TOPIRAMATE 25 MG TABLET PO SCH (21:48)
[2018-10-10] MEDS: AZITHROMYCIN INJ 500 MG in SODIUM CHLORIDE 0.9% 250 ML IV SCH (21:48)
[2018-10-11] MEDS: methylPREDNISolone SOD SUC 40 MG/1 ML VIAL IV SCH (00:28)
[2018-10-11 03:14] LABS: Hematocrit 36.5 VOL% (35.7-47.0); Hemoglobin 11.4 GM/DL (12.0-16.0); Immature Granulocytes % 0.1 %; Immature Granulocytes Absolute 0.01 #; Lymphocytes # 1.2 10*3/uL (1.4-4.0); Lymphocytes % 17.3 % (21.3-54.2); Mean Corpuscular HGB Conc 31.2 GM/DL (32-36); Mean Corpuscular Hemoglobin 30 PG (27-34); Mean Corpuscular Volume 95.5 FL (87-102); Mean Platelet Volume 12.3 FL (9.6-12.0); Monocytes # 0.4 10*3/uL (0.11-0.8); Monocytes % 5.2 % (1.7-12.7); Neutrophils # 5.5 10*3/uL (1.4-7.4); Neutrophils % 77.4 % (38.7-73.9); Platelet Count 134 T/CUMM (130-400); Red Blood Count 3.82 MC/CUMM (3.8-5.5); White Blood Count 7.1 T/CUMM (4-12)
[2018-10-11 03:22] LABS: INR 2.2
[2018-10-11 03:28] LABS: PT Patient Result 23.4 SECS
[2018-10-11 03:39] LABS: Calcium 8.2 MG/DL (8.5-10.1); Potassium 3.6 MMOL/L (3.5-5.1)
[2018-10-11] MEDS: POTASSIUM CHLORIDE 20 MEQ TABLET PO PRN ×2 (06:27→08:40)
[2018-10-11] MEDS: ASCORBIC ACID 500 MG TABLET PO SCH (08:40)
[2018-10-11] MEDS: MULTIVITAMIN (CENTRUM) TABLET PO SCH (08:40)
[2018-10-11] MEDS: CARVEDILOL 3.125 MG TABLET PO SCH (08:40)
[2018-10-11] MEDS: PANTOPRAZOLE 40 MG TABLET PO SCH (08:40)
[2018-10-11] MEDS: FLUDROCORTISONE 0.1 MG TABLET PO SCH (08:40)
[2018-10-11] MEDS: FUROSEMIDE 40 MG/4 ML VIAL IV SCH (08:44)
[2018-10-11] MEDS: cefTRIAXone 1,000 MG in SYRINGE 1 EACH IV SCH (08:48)
[2018-10-11 09:14] VITALS: BP 146/64
[2018-10-11] MEDS ORDERED: predniSONE 20 MG TABLET PO SCH (09:30)
[2018-10-11] MEDS ORDERED: BUDESONIDE/FORMOTEROL 160-4.5 INHALER 6 GM INH SCH (21:00)
== END 2018-10-11 11:12 | disposition home or self-care (01) | DRG 291 ==
LOC: EDUNIT# → N.ED 10:38 → N.EDINP 13:56 → N.2W 16:15 → N.4E 17:21
PROVIDERS: ADMIT Internal Medicine Geriatric Medicine; ATTEND Internal Medicine Geriatric Medicine

== ENCOUNTER 2019-01-13 11:14 | Inpatient (IN) ==
[2019-01-13] MEDS ORDERED: ALUM/MAG/SIMETH/LIDO VISC 1:1 30 ML BOTTLE PO STA (11:48)
[2019-01-13] MEDS ORDERED: ASPIRIN 325 MG TABLET PO STA (11:48)
[2019-01-13] MEDS ORDERED: METOCLOPRAMIDE 10 MG/2 ML VIAL IV STA (11:48)
[2019-01-13] MEDS ORDERED: ONDANSETRON 4 MG/2 ML VIAL IV STA (11:48)
[2019-01-13 11:55] LABS: Basophils # 0.1 10*3/uL (0.0-0.2); Basophils % 0.5 % (0.0-0.8); Eosinophils # 0.1 10*3/uL (0.0-0.87); Eosinophils % 0.6 % (0.00-10.9); Hematocrit 40.5 VOL% (35.7-47.0); Hemoglobin 12.4 GM/DL (12.0-16.0); Immature Granulocytes % 0.5 %; Immature Granulocytes Absolute 0.05 #; Lymphocytes # 2.4 10*3/uL (1.4-4.0); Lymphocytes % 23.7 % (21.3-54.2); Mean Corpuscular HGB Conc 30.6 GM/DL (32-36); Mean Corpuscular Hemoglobin 29 PG (27-34); Mean Corpuscular Volume 93.5 FL (87-102); Mean Platelet Volume 10.4 FL (9.6-12.0); Monocytes # 0.8 10*3/uL (0.11-0.8); Monocytes % 8.1 % (1.7-12.7); Neutrophils # 6.6 10*3/uL (1.4-7.4); Neutrophils % 66.6 % (38.7-73.9); Platelet Count 240 T/CUMM (130-400); Red Blood Count 4.33 MC/CUMM (3.8-5.5); Red Cell Distribution Width 17.5 % (9.3-17.3)
[2019-01-13 12:04] LABS: INR 1.5; PT Patient Result 15.8 SECS
[2019-01-13 12:15] LABS: CKMB % 4.2 %; Calcium 7.8 MG/DL (8.5-10.1); Osmolality,Calculated 274.7 MOS/KG (273-304); Potassium 3.8 MMOL/L (3.5-5.1); Total Protein 7.5 G/DL (6.4-8.3)
[2019-01-13 12:16] LABS: Troponin I 0.101 NG/ML (0.00-0.045)
[2019-01-13 13:06] LABS: Apearance,Urine CLEAR (Clear); Bacteria,Urine Occasional /HPF (Few); Bilirubin,Urine Negative (Negative); Blood, Urine Negative (Negative); Glucose,Urine (UA) Negative (Negative); Ketones,Urine Negative (Negative); Mucus,Urine Occasional /LPF (Occasional); Nitrite,Urine Negative (Negative); Protein,Urine Negative; RBC,Urine <1 /HPF (0-4); Squamous Epithelial Cell,Urine Occasional /HPF (0-10); Urine Color Yellow (Yellow); Urine Specific Gravity 1.015 (1.001-1.035); WBC,Urine 1 /HPF (0-6)
[2019-01-13] MEDS ORDERED: ENOXAPARIN 60 MG/0.6 ML SYRINGE SUBCUT STA (13:26)
[2019-01-13] MEDS ORDERED: FUROSEMIDE 40 MG/4 ML VIAL IV STA (13:26)
[2019-01-13] MEDS ORDERED: ACETAMINOPHEN 325 MG TABLET PO PRN (14:29)
[2019-01-13] MEDS ORDERED: ONDANSETRON 4 MG/2 ML VIAL IV PRN (14:29)
[2019-01-13] MEDS ORDERED: BUDESONIDE/FORMOTEROL 160-4.5 INHALER 6 GM INH PRN (14:35)
[2019-01-13] MEDS ORDERED: DIAZEPAM 2 MG TABLET PO PRN (14:35)
[2019-01-13] MEDS ORDERED: ALBUTEROL/IPRATROPIUM 3 ML NEB RESP TX PRN (15:34)
[2019-01-13] MEDS: ENOXAPARIN 60 MG/0.6 ML SYRINGE SUBCUT SCH (16:50)
[2019-01-13] MEDS: cefTRIAXone 1,000 MG in SYRINGE 1 EACH IV SCH (18:10)
[2019-01-13] MEDS: CARVEDILOL 3.125 MG TABLET PO SCH (21:14)
[2019-01-13] MEDS: FUROSEMIDE 40 MG/4 ML VIAL IV SCH (21:15)
[2019-01-14 03:52] LABS: Basophils % 0.5 % (0.0-0.8); Eosinophils # 0.2 10*3/uL (0.0-0.87); Eosinophils % 2.2 % (0.00-10.9); Hematocrit 38.5 VOL% (35.7-47.0); Hemoglobin 11.8 GM/DL (12.0-16.0); Immature Granulocytes % 0.4 %; Immature Granulocytes Absolute 0.03 #; Lymphocytes # 2.2 10*3/uL (1.4-4.0); Lymphocytes % 28.6 % (21.3-54.2); Mean Corpuscular HGB Conc 30.6 GM/DL (32-36); Mean Corpuscular Hemoglobin 29 PG (27-34); Mean Corpuscular Volume 93.4 FL (87-102); Mean Platelet Volume 10.9 FL (9.6-12.0); Monocytes # 0.9 10*3/uL (0.11-0.8); Monocytes % 11.7 % (1.7-12.7); Neutrophils # 4.3 10*3/uL (1.4-7.4); Neutrophils % 56.6 % (38.7-73.9); Platelet Count 225 T/CUMM (130-400); Red Blood Count 4.12 MC/CUMM (3.8-5.5); Red Cell Distribution Width 17.6 % (9.3-17.3); White Blood Count 7.7 T/CUMM (4-12)
[2019-01-14 03:54] LABS: INR 1.5; PT Patient Result 15.9 SECS
[2019-01-14 04:11] LABS: Calcium 7.7 MG/DL (8.5-10.1); Osmolality,Calculated 283.1 MOS/KG (273-304); Potassium 4.2 MMOL/L (3.5-5.1); Thyroid Stimulating Hormone 0.519 uIU/ml (0.358-3.74)
[2019-01-14] MEDS: ENOXAPARIN 60 MG/0.6 ML SYRINGE SUBCUT SCH ×2 (05:13→17:32)
[2019-01-14] MEDS: CARVEDILOL 3.125 MG TABLET PO SCH ×2 (08:46→21:52)
[2019-01-14] MEDS: FUROSEMIDE 40 MG/4 ML VIAL IV SCH ×2 (08:46→21:53)
[2019-01-14] MEDS: AZITHROMYCIN 250 MG TABLET PO SCH (08:46)
[2019-01-14] MEDS: PANTOPRAZOLE 40 MG TABLET PO SCH (08:46)
[2019-01-14] MEDS: DIGOXIN 0.125 MG TABLET PO SCH (12:37)
[2019-01-14] MEDS: WARFARIN 5 MG TABLET PO SCH (17:32)
[2019-01-14] MEDS: cefTRIAXone 1,000 MG in SYRINGE 1 EACH IV SCH (17:32)
[2019-01-14] MEDS ORDERED: WARFARIN 2 MG TABLET PO SCH (18:00)
[2019-01-14] MEDS: TEMAZEPAM 15 MG CAPSULE PO PRN (21:52)
[2019-01-15] MEDS: ENOXAPARIN 60 MG/0.6 ML SYRINGE SUBCUT SCH ×2 (05:27→17:23)
[2019-01-15 06:34] LABS: Osmolality,Calculated 278.4 MOS/KG (273-304)
[2019-01-15 06:38] LABS: Basophils # 0.1 10*3/uL (0.0-0.2); Basophils % 0.7 % (0.0-0.8); Eosinophils # 0.2 10*3/uL (0.0-0.87); Eosinophils % 2.2 % (0.00-10.9); Hematocrit 41.2 VOL% (35.7-47.0); Hemoglobin 12.5 GM/DL (12.0-16.0); Immature Granulocytes % 0.3 %; Immature Granulocytes Absolute 0.02 #; Lymphocytes # 2.2 10*3/uL (1.4-4.0); Lymphocytes % 32.5 % (21.3-54.2); Mean Corpuscular HGB Conc 30.3 GM/DL (32-36); Mean Corpuscular Hemoglobin 29 PG (27-34); Mean Corpuscular Volume 94.1 FL (87-102); Mean Platelet Volume 11.1 FL (9.6-12.0); Monocytes # 0.8 10*3/uL (0.11-0.8); Monocytes % 11.5 % (1.7-12.7); Neutrophils # 3.6 10*3/uL (1.4-7.4); Neutrophils % 52.8 % (38.7-73.9); Platelet Count 222 T/CUMM (130-400); Red Blood Count 4.38 MC/CUMM (3.8-5.5); Red Cell Distribution Width 17.3 % (9.3-17.3); White Blood Count 6.8 T/CUMM (4-12)
[2019-01-15 07:28] LABS: INR 1.4; PT Patient Result 15.2 SECS
[2019-01-15] MEDS: CARVEDILOL 3.125 MG TABLET PO SCH ×2 (09:56→20:41)
[2019-01-15] MEDS: AZITHROMYCIN 250 MG TABLET PO SCH (09:56)
[2019-01-15] MEDS: PANTOPRAZOLE 40 MG TABLET PO SCH (09:56)
[2019-01-15] MEDS: FUROSEMIDE 40 MG/4 ML VIAL IV SCH ×2 (09:56→20:41)
[2019-01-15] MEDS: methylPREDNISolone SOD SUC 40 MG/1 ML VIAL IV SCH ×2 (10:01→17:28)
[2019-01-15] MEDS: DIGOXIN 0.125 MG TABLET PO SCH (12:40)
[2019-01-15] MEDS: cefTRIAXone 1,000 MG in SYRINGE 1 EACH IV SCH (17:23)
[2019-01-15] MEDS: WARFARIN 5 MG TABLET PO SCH (17:23)
[2019-01-15] MEDS: TEMAZEPAM 15 MG CAPSULE PO PRN (21:54)
[2019-01-16] MEDS: methylPREDNISolone SOD SUC 40 MG/1 ML VIAL IV SCH ×3 (00:44→17:08)
[2019-01-16] MEDS: ENOXAPARIN 60 MG/0.6 ML SYRINGE SUBCUT SCH ×2 (05:03→17:07)
[2019-01-16 05:29] LABS: Basophils % 0.1 % (0.0-0.8); Hematocrit 43.7 VOL% (35.7-47.0); Hemoglobin 13.3 GM/DL (12.0-16.0); Immature Granulocytes % 0.4 %; Immature Granulocytes Absolute 0.03 #; Lymphocytes # 2.1 10*3/uL (1.4-4.0); Lymphocytes % 30.9 % (21.3-54.2); Mean Corpuscular HGB Conc 30.4 GM/DL (32-36); Mean Corpuscular Hemoglobin 29 PG (27-34); Mean Corpuscular Volume 93.6 FL (87-102); Monocytes # 0.2 10*3/uL (0.11-0.8); Monocytes % 2.5 % (1.7-12.7); Neutrophils # 4.6 10*3/uL (1.4-7.4); Neutrophils % 66.1 % (38.7-73.9); Platelet Count 250 T/CUMM (130-400); Red Blood Count 4.67 MC/CUMM (3.8-5.5); White Blood Count 6.9 T/CUMM (4-12)
[2019-01-16 05:54] LABS: INR 1.8
[2019-01-16 05:55] LABS: Calcium 8.7 MG/DL (8.5-10.1); Osmolality,Calculated 278.7 MOS/KG (273-304)
[2019-01-16] MEDS: AZITHROMYCIN 250 MG TABLET PO SCH (08:46)
[2019-01-16] MEDS: CARVEDILOL 3.125 MG TABLET PO SCH ×2 (08:46→21:09)
[2019-01-16] MEDS: PANTOPRAZOLE 40 MG TABLET PO SCH (08:47)
[2019-01-16] MEDS: FUROSEMIDE 40 MG/4 ML VIAL IV SCH (09:08)
[2019-01-16] MEDS: DIGOXIN 0.125 MG TABLET PO SCH (13:09)
[2019-01-16] MEDS: WARFARIN 5 MG TABLET PO SCH (17:06)
[2019-01-16] MEDS: cefTRIAXone 1,000 MG in SYRINGE 1 EACH IV SCH (17:11)
[2019-01-16] MEDS: TEMAZEPAM 15 MG CAPSULE PO PRN (23:15)
[2019-01-17] MEDS: methylPREDNISolone SOD SUC 40 MG/1 ML VIAL IV SCH ×2 (01:24→08:21)
[2019-01-17 04:43] LABS: INR 3.5
[2019-01-17 04:48] LABS: PT Patient Result 38.1 SECS
[2019-01-17 04:51] LABS: Calcium 8.6 MG/DL (8.5-10.1); Osmolality,Calculated 277.8 MOS/KG (273-304)
[2019-01-17] MEDS: ENOXAPARIN 60 MG/0.6 ML SYRINGE SUBCUT SCH (06:15)
[2019-01-17] MEDS: CARVEDILOL 3.125 MG TABLET PO SCH (08:21)
[2019-01-17] MEDS: PANTOPRAZOLE 40 MG TABLET PO SCH (08:21)
[2019-01-17] MEDS ORDERED: FUROSEMIDE 40 MG/4 ML VIAL IM SCH (09:00)
[2019-01-17 11:58] VITALS: BP 154/66
[2019-01-18] MEDS ORDERED: APIXABAN 2.5 MG TABLET PO SCH (09:00)
== END 2019-01-17 12:24 | disposition home health service (06) | DRG 175 ==
LOC: EDUNIT# → EDBD → N.ED 11:14 → N.EDINP 14:07 → N.TELES 17:10
PROVIDERS: ADMIT Emergency Medicine; ATTEND Emergency Medicine

== ENCOUNTER 2019-04-13 20:25 | Inpatient (IN) ==
[2019-04-13 21:16] LABS: Basophils # 0.1 10*3/uL (0.0-0.2); Basophils % 0.2 % (0.0-0.8); Hematocrit 45.7 VOL% (35.7-47.0); Hemoglobin 13.9 GM/DL (12.0-16.0); Immature Granulocytes % 0.9 %; Lymphocytes # 1.9 10*3/uL (1.4-4.0); Lymphocytes % 8.4 % (21.3-54.2); Mean Corpuscular HGB Conc 30.4 GM/DL (32-36); Mean Corpuscular Volume 82.9 FL (87-102); Mean Platelet Volume 10.6 FL (9.6-12.0); Monocytes % 4.4 % (1.7-12.7); Neutrophils % 86.1 % (38.7-73.9); Platelet Count 211 T/CUMM (130-400); Red Blood Count 5.51 MC/CUMM (3.8-5.5); Red Cell Distribution Width 19.4 % (9.3-17.3); White Blood Count 22.3 T/CUMM (4-12)
[2019-04-13 21:25] LABS: INR 1.2; PT Patient Result 12.9 SECS
[2019-04-13 21:36] LABS: Albumin 2.5 G/DL (3.4-5.0); Bilirubin,Total 1.4 MG/DL (0.2-1.0); Calcium 7.9 MG/DL (8.5-10.1); Lymphocytes 4 % (20-55); Osmolality,Calculated 256.6 MOS/KG (273-304); Segmented Neutrophils 92 % (50-85); Total Cells Counted 100; Total Protein 7.5 G/DL (6.4-8.3)
[2019-04-13 21:37] LABS: Platelet Estimate Adequate
[2019-04-13] MEDS ORDERED: POTASSIUM CHLORIDE 20 MEQ TABLET PO STA (21:44)
[2019-04-13 22:30] LABS: Apearance,Urine CLEAR (Clear); Bilirubin,Urine Negative (Negative); Blood, Urine Negative (Negative); Glucose,Urine (UA) Negative (Negative); Ketones,Urine Negative (Negative); Nitrite,Urine Negative (Negative); Protein,Urine Negative; RBC,Urine 5 /HPF (0-4); Squamous Epithelial Cell,Urine Occasional /HPF (0-10); Urine Color Yellow (Yellow); Urine Specific Gravity 1.017 (1.001-1.035); WBC,Urine <1 /HPF (0-6)
[2019-04-13] MEDS ORDERED: MAGNESIUM SULF RIDER 4 GM in PREMIX 1 EACH IV PRN (22:43)
[2019-04-13] MEDS ORDERED: MAGNESIUM SULF RIDER 2 GM in PREMIX 1 EACH IV PRN (22:43)
[2019-04-13] MEDS: SODIUM CHLORIDE 0.9% 1,000 ML IV SCH (23:30)
[2019-04-14] MEDS ORDERED: ONDANSETRON 4 MG/2 ML VIAL IV ONE (00:02)
[2019-04-14] MEDS ORDERED: ONDANSETRON 4 MG TABLET PO PRN (08:34)
[2019-04-14] MEDS ORDERED: CLORAZEPATE 7.5 MG TABLET PO PRN (08:34)
[2019-04-14] MEDS ORDERED: POTASSIUM GLUCONATE 500 MG TABLET PO SCH (09:00)
[2019-04-14] MEDS: APIXABAN 2.5 MG TABLET PO SCH ×2 (09:29→22:27)
[2019-04-14] MEDS: CYANOCOBALAMIN 500 MCG TABLET PO SCH (09:29)
[2019-04-14] MEDS: predniSONE 20 MG TABLET PO SCH (09:29)
[2019-04-14] MEDS: MULTIVITAMIN (CENTRUM) TABLET PO SCH (09:29)
[2019-04-14] MEDS: PROMETHAZINE 25 MG TABLET PO SCH ×2 (09:29→22:34)
[2019-04-14] MEDS: POTASSIUM CHLORIDE 20 MEQ TABLET PO SCH ×2 (09:29→22:34)
[2019-04-14] MEDS: ASCORBIC ACID 500 MG TABLET PO SCH (09:30)
[2019-04-14] MEDS: CILOSTAZOL 100 MG TABLET PO SCH ×2 (09:30→22:27)
[2019-04-14] MEDS: PANTOPRAZOLE 40 MG TABLET PO SCH (09:30)
[2019-04-14] MEDS: DIGOXIN 0.125 MG TABLET PO SCH (09:30)
[2019-04-14 09:57] LABS: Troponin I 0.189 NG/ML (0.00-0.045)
[2019-04-14 12:48] LABS: Troponin I 0.158 NG/ML (0.00-0.045)
[2019-04-14] MEDS: POTASSIUM CHLORIDE 20 MEQ TABLET PO PRN ×2 (13:11→15:37)
[2019-04-14] MEDS: ESCITALOPRAM 10 MG TABLET PO SCH (18:13)
[2019-04-14] MEDS: SODIUM CHLORIDE 0.9% 1,000 ML IV SCH (18:14)
[2019-04-14] MEDS: tiZANidine 4 MG TABLET PO SCH (22:35)
[2019-04-14] MEDS: TEMAZEPAM 15 MG CAPSULE PO SCH (22:35)
[2019-04-15] MEDS: TEMAZEPAM 15 MG CAPSULE PO SCH ×2 (01:43→21:59)
[2019-04-15] MEDS: SODIUM CHLORIDE 0.9% 1,000 ML IV SCH ×2 (04:40→19:31)
[2019-04-15 04:54] LABS: Calcium 8.2 MG/DL (8.5-10.1); Osmolality,Calculated 271.2 MOS/KG (273-304)
[2019-04-15 05:16] LABS: Basophils % 0.1 % (0.0-0.8); Eosinophils # 0.1 10*3/uL (0.0-0.87); Hematocrit 42.3 VOL% (35.7-47.0); Hemoglobin 12.8 GM/DL (12.0-16.0); Immature Granulocytes % 0.4 %; Immature Granulocytes Absolute 0.03 #; Lymphocytes # 1.8 10*3/uL (1.4-4.0); Lymphocytes % 22.6 % (21.3-54.2); Mean Corpuscular HGB Conc 30.3 GM/DL (32-36); Mean Corpuscular Volume 84.8 FL (87-102); Mean Platelet Volume 11.8 FL (9.6-12.0); Monocytes % 7.6 % (1.7-12.7); Neutrophils % 68.3 % (38.7-73.9); Platelet Count 193 T/CUMM (130-400); Red Blood Count 4.99 MC/CUMM (3.8-5.5)
[2019-04-15] MEDS: CILOSTAZOL 100 MG TABLET PO SCH ×2 (09:05→21:59)
[2019-04-15] MEDS: DIGOXIN 0.125 MG TABLET PO SCH (09:05)
[2019-04-15] MEDS: MULTIVITAMIN (CENTRUM) TABLET PO SCH (09:06)
[2019-04-15] MEDS: CYANOCOBALAMIN 500 MCG TABLET PO SCH (09:07)
[2019-04-15] MEDS: ASCORBIC ACID 500 MG TABLET PO SCH (09:07)
[2019-04-15] MEDS: POTASSIUM CHLORIDE 20 MEQ TABLET PO SCH (09:08)
[2019-04-15] MEDS: APIXABAN 2.5 MG TABLET PO SCH ×2 (09:08→21:58)
[2019-04-15] MEDS: predniSONE 20 MG TABLET PO SCH (09:09)
[2019-04-15] MEDS: PANTOPRAZOLE 40 MG TABLET PO SCH (09:09)
[2019-04-15] MEDS: BUDESONIDE/FORMOTEROL 160-4.5 INHALER 6 GM INH PRN (09:10)
[2019-04-15] MEDS: PROMETHAZINE 25 MG TABLET PO SCH (12:54)
[2019-04-15] MEDS: POTASSIUM CHLORIDE 20 MEQ TABLET PO PRN (15:38)
[2019-04-15] MEDS: ESCITALOPRAM 10 MG TABLET PO SCH (21:58)
[2019-04-15] MEDS: tiZANidine 4 MG TABLET PO SCH (22:04)
[2019-04-16 05:26] LABS: Calcium 8.4 MG/DL (8.5-10.1); Osmolality,Calculated 272.1 MOS/KG (273-304)
[2019-04-16 06:04] LABS: Basophils % 0.2 % (0.0-0.8); Eosinophils # 0.1 10*3/uL (0.0-0.87); Eosinophils % 1.3 % (0.00-10.9); Hematocrit 42.4 VOL% (35.7-47.0); Immature Granulocytes % 0.4 %; Immature Granulocytes Absolute 0.03 #; Lymphocytes # 2.1 10*3/uL (1.4-4.0); Lymphocytes % 25.1 % (21.3-54.2); Mean Corpuscular HGB Conc 29.2 GM/DL (32-36); Mean Corpuscular Volume 86.5 FL (87-102); Mean Platelet Volume 11.3 FL (9.6-12.0); Monocytes % 7.1 % (1.7-12.7); Neutrophils % 65.9 % (38.7-73.9); Platelet Count 170 T/CUMM (130-400); White Blood Count 8.4 T/CUMM (4-12)
[2019-04-16 06:06] LABS: Hemoglobin 12.4 GM/DL (12.0-16.0)
[2019-04-16] MEDS: PROMETHAZINE 25 MG TABLET PO SCH ×3 (08:11→21:30)
[2019-04-16] MEDS: SODIUM CHLORIDE 0.9% 1,000 ML IV SCH ×3 (08:11→18:30)
[2019-04-16] MEDS: CILOSTAZOL 100 MG TABLET PO SCH ×2 (09:24→21:31)
[2019-04-16] MEDS: APIXABAN 2.5 MG TABLET PO SCH ×2 (09:24→21:31)
[2019-04-16] MEDS ORDERED: ceFAZolin 1,000 MG VIAL ONE (11:14)
[2019-04-16] MEDS ORDERED: HEPARIN/NACL 0.9% 2 UNITS/ML 1,000 ML IV ONE (11:58)
[2019-04-16] MEDS ORDERED: ACETAMINOPHEN 325 MG TABLET PO PRN (13:25)
[2019-04-16] MEDS ORDERED: fentaNYL 100 MCG/2 ML VIAL ONE (13:40)
[2019-04-16] MEDS ORDERED: ePHEDrine 50 MG/ML AMP ONE (13:41)
[2019-04-16] MEDS ORDERED: ONDANSETRON 4 MG/2 ML VIAL ONE (13:42)
[2019-04-16] MEDS ORDERED: ROCURONIUM 100 MG/10 ML VIAL IV ONE (13:42)
[2019-04-16] MEDS ORDERED: GLYCOPYRROLATE 0.4 MG/2 ML VIAL ONE (13:42)
[2019-04-16] MEDS ORDERED: SEVOFLURANE 1 UNIT/15 MINUTE INH ONE (13:42)
[2019-04-16] MEDS ORDERED: ETOMIDATE 40 MG/20 ML VIAL IV ONE (13:42)
[2019-04-16] MEDS ORDERED: PROPOFOL 200 MG/20 ML VIAL IV ONE (13:42)
[2019-04-16] MEDS ORDERED: HYDROCORTISONE 100 MG VIAL ONE (13:42)
[2019-04-16] MEDS ORDERED: NEOSTIGMINE 10 MG/10 ML VIAL ONE (13:43)
[2019-04-16] MEDS: PANTOPRAZOLE 40 MG TABLET PO SCH (14:27)
[2019-04-16] MEDS: ASCORBIC ACID 500 MG TABLET PO SCH (14:27)
[2019-04-16] MEDS: CYANOCOBALAMIN 500 MCG TABLET PO SCH (14:27)
[2019-04-16] MEDS: POTASSIUM CHLORIDE 20 MEQ TABLET PO SCH (14:28)
[2019-04-16] MEDS: DIGOXIN 0.125 MG TABLET PO SCH (14:28)
[2019-04-16] MEDS: MULTIVITAMIN (CENTRUM) TABLET PO SCH (14:28)
[2019-04-16] MEDS: predniSONE 20 MG TABLET PO SCH (14:28)
[2019-04-16] MEDS: ESCITALOPRAM 10 MG TABLET PO SCH (18:29)
[2019-04-16] MEDS: tiZANidine 4 MG TABLET PO SCH (21:30)
[2019-04-16] MEDS: TEMAZEPAM 15 MG CAPSULE PO SCH (21:31)
[2019-04-17] MEDS: SODIUM CHLORIDE 0.9% 1,000 ML IV SCH (01:47)
[2019-04-17 03:38] LABS: Basophils % 0.1 % (0.0-0.8); Eosinophils % 0.1 % (0.00-10.9); Hematocrit 39.6 VOL% (35.7-47.0); Hemoglobin 11.9 GM/DL (12.0-16.0); Immature Granulocytes % 0.4 %; Immature Granulocytes Absolute 0.03 #; Lymphocytes # 1.8 10*3/uL (1.4-4.0); Mean Corpuscular HGB Conc 30.1 GM/DL (32-36); Mean Platelet Volume 11.2 FL (9.6-12.0); Monocytes % 5.2 % (1.7-12.7); Neutrophils % 72.2 % (38.7-73.9); Platelet Count 185 T/CUMM (130-400); Red Blood Count 4.66 MC/CUMM (3.8-5.5); Red Cell Distribution Width 19.1 % (9.3-17.3); White Blood Count 8.2 T/CUMM (4-12)
[2019-04-17 03:52] LABS: Osmolality,Calculated 267.2 MOS/KG (273-304)
[2019-04-17] MEDS: predniSONE 20 MG TABLET PO SCH (09:48)
[2019-04-17] MEDS: MULTIVITAMIN (CENTRUM) TABLET PO SCH (09:48)
[2019-04-17] MEDS: DIGOXIN 0.125 MG TABLET PO SCH (09:48)
[2019-04-17] MEDS: APIXABAN 2.5 MG TABLET PO SCH ×2 (09:49→21:38)
[2019-04-17] MEDS: CYANOCOBALAMIN 500 MCG TABLET PO SCH (09:49)
[2019-04-17] MEDS: PANTOPRAZOLE 40 MG TABLET PO SCH (09:49)
[2019-04-17] MEDS: CILOSTAZOL 100 MG TABLET PO SCH ×2 (09:49→21:39)
[2019-04-17] MEDS: POTASSIUM CHLORIDE 20 MEQ TABLET PO SCH (09:49)
[2019-04-17] MEDS: PROMETHAZINE 25 MG TABLET PO SCH ×2 (09:50→21:54)
[2019-04-17] MEDS: ASCORBIC ACID 500 MG TABLET PO SCH (09:50)
[2019-04-17] MEDS: tiZANidine 4 MG TABLET PO SCH (21:39)
[2019-04-17] MEDS: TEMAZEPAM 15 MG CAPSULE PO SCH (21:39)
[2019-04-17] MEDS: ESCITALOPRAM 10 MG TABLET PO SCH (21:39)
[2019-04-18 08:16] VITALS: BP 151/67
[2019-04-18] MEDS: ASCORBIC ACID 500 MG TABLET PO SCH (09:22)
[2019-04-18] MEDS: CYANOCOBALAMIN 500 MCG TABLET PO SCH (09:22)
[2019-04-18] MEDS: DIGOXIN 0.125 MG TABLET PO SCH (09:23)
[2019-04-18] MEDS: predniSONE 20 MG TABLET PO SCH (09:23)
[2019-04-18] MEDS: APIXABAN 2.5 MG TABLET PO SCH (09:23)
[2019-04-18] MEDS: PANTOPRAZOLE 40 MG TABLET PO SCH (09:24)
[2019-04-18] MEDS: MULTIVITAMIN (CENTRUM) TABLET PO SCH (09:24)
[2019-04-18] MEDS: POTASSIUM CHLORIDE 20 MEQ TABLET PO SCH (09:24)
[2019-04-18] MEDS: BUDESONIDE/FORMOTEROL 160-4.5 INHALER 6 GM INH PRN (09:25)
[2019-04-18] MEDS: PROMETHAZINE 25 MG TABLET PO SCH (09:25)
[2019-04-18] MEDS: CILOSTAZOL 100 MG TABLET PO SCH (09:43)
== END 2019-04-18 11:35 | disposition home health service (06) | DRG 273 ==
LOC: EDUNIT# → EDBD → N.ED 20:25 → N.EDINP 22:43 → N.TELEN 23:00
PROVIDERS: ADMIT Internal Medicine Clinical Cardiac Electrophysiology; ATTEND Internal Medicine Clinical Cardiac Electrophysiology

== ENCOUNTER 2019-06-23 06:32 | Inpatient (IN) ==
[2019-06-20 11:24] LABS: Basophils % 0.7 % (0.0-0.8); Eosinophils # 0.1 10*3/uL (0.0-0.87); Eosinophils % 2.7 % (0.00-10.9); Hematocrit 41.9 VOL% (35.7-47.0); Hemoglobin 13.1 GM/DL (12.0-16.0); Immature Granulocytes % 0.2 %; Immature Granulocytes Absolute 0.01 #; Lymphocytes # 1.8 10*3/uL (1.4-4.0); Lymphocytes % 39.2 % (21.3-54.2); Mean Corpuscular HGB Conc 31.3 GM/DL (32-36); Mean Corpuscular Volume 88.4 FL (87-102); Mean Platelet Volume 11.1 FL (9.6-12.0); Monocytes % 9.5 % (1.7-12.7); Neutrophils % 47.7 % (38.7-73.9); Platelet Count 172 T/CUMM (130-400); Red Blood Count 4.74 MC/CUMM (3.8-5.5); Red Cell Distribution Width 19.9 % (9.3-17.3); White Blood Count 4.5 T/CUMM (4-12)
[2019-06-20 11:31] LABS: INR 1.1
[2019-06-20 11:50] LABS: Calcium 8.6 MG/DL (8.5-10.1)
[2019-06-23] MEDS ORDERED: MIDAZOLAM 2 MG/2 ML VIAL IV ONE (07:30)
[2019-06-23] MEDS ORDERED: fentaNYL 100 MCG/2 ML VIAL IV ONE (07:30)
[2019-06-23] MEDS: SODIUM CHLORIDE 0.45% 1,000 ML IV SCH ×2 (07:55→23:28)
[2019-06-23] MEDS ORDERED: ceFAZolin 1,000 MG in SYRINGE 1 EACH IV ONE (08:00)
[2019-06-23] MEDS ORDERED: DIAZEPAM 5 MG TABLET ONE (08:50)
[2019-06-23] MEDS ORDERED: DIAZEPAM 5 MG TABLET PO ONE (09:02)
[2019-06-23] MEDS ORDERED: ceFAZolin 1,000 MG VIAL ONE (09:27)
[2019-06-23] MEDS ORDERED: HEPARIN/NACL 0.9% 2 UNITS/ML 2,000 ML IV ONE (09:33)
[2019-06-23] MEDS ORDERED: fentaNYL 100 MCG/2 ML VIAL ONE (10:35)
[2019-06-23] MEDS ORDERED: MIDAZOLAM 2 MG/2 ML VIAL ONE (10:35)
[2019-06-23] MEDS ORDERED: HEPARIN 5,000 UNIT/1 ML VIAL ONE (10:36)
[2019-06-23] MEDS ORDERED: HEPARIN 5,000 UNIT/1 ML VIAL IV PRN (11:24)
[2019-06-23] MEDS: ONDANSETRON 4 MG/2 ML VIAL IV PRN ×2 (14:48→19:35)
[2019-06-23 16:02] LABS: Hematocrit 34.4 VOL% (35.7-47.0)
[2019-06-23 16:15] LABS: Hemoglobin 10.6 GM/DL (12.0-16.0)
[2019-06-24] MEDS: ONDANSETRON 4 MG/2 ML VIAL IV PRN ×3 (02:11→09:27)
[2019-06-24 05:34] LABS: Basophils % 0.2 % (0.0-0.8); Hematocrit 31.9 VOL% (35.7-47.0); Hemoglobin 9.7 GM/DL (12.0-16.0); Immature Granulocytes % 0.3 %; Immature Granulocytes Absolute 0.03 #; Lymphocytes # 1.8 10*3/uL (1.4-4.0); Lymphocytes % 19.7 % (21.3-54.2); Mean Corpuscular HGB Conc 30.4 GM/DL (32-36); Mean Corpuscular Volume 92.2 FL (87-102); Mean Platelet Volume 12.1 FL (9.6-12.0); Monocytes % 5.7 % (1.7-12.7); Neutrophils % 74.1 % (38.7-73.9); Platelet Count 167 T/CUMM (130-400); Red Blood Count 3.46 MC/CUMM (3.8-5.5); Red Cell Distribution Width 19.6 % (9.3-17.3); White Blood Count 9.2 T/CUMM (4-12)
[2019-06-24 05:42] LABS: Calcium 8.5 MG/DL (8.5-10.1); Osmolality,Calculated 281.4 MOS/KG (273-304)
[2019-06-24] MEDS: SODIUM CHLORIDE 0.45% 1,000 ML IV SCH ×2 (07:57→20:00)
[2019-06-24] MEDS ORDERED: HYDROmorphone 2 MG/1 ML VIAL IV ONE (09:08)
[2019-06-24] MEDS ORDERED: HYDROmorphone 2 MG/1 ML VIAL IV PRN (15:50)
[2019-06-24 16:43] LABS: Apearance,Urine CLEAR (Clear); Bilirubin,Urine Negative (Negative); Blood, Urine Negative (Negative); Glucose,Urine (UA) Negative (Negative); Ketones,Urine Negative (Negative); Mucus,Urine Occasional /LPF (Occasional); Nitrite,Urine Negative (Negative); Protein,Urine Negative; RBC,Urine 5 /HPF (0-4); Squamous Epithelial Cell,Urine Occasional /HPF (0-10); Urine Color Yellow (Yellow); Urine Specific Gravity > 1.060 (1.001-1.035); Urine Urobilinogen < 2.0 EU/DL (0.2-1.0); WBC,Urine <1 /HPF (0-6)
[2019-06-24] MEDS: PANTOPRAZOLE 40 MG TABLET PO SCH (20:57)
[2019-06-25 05:33] LABS: Basophils % 0.3 % (0.0-0.8); Eosinophils # 0.1 10*3/uL (0.0-0.87); Eosinophils % 1.1 % (0.00-10.9); Hemoglobin 8.2 GM/DL (12.0-16.0); Immature Granulocytes % 0.4 %; Immature Granulocytes Absolute 0.03 #; Lymphocytes # 2.5 10*3/uL (1.4-4.0); Lymphocytes % 33.4 % (21.3-54.2); Mean Corpuscular HGB Conc 30.4 GM/DL (32-36); Mean Corpuscular Volume 92.2 FL (87-102); Mean Platelet Volume 11.4 FL (9.6-12.0); Monocytes % 13.1 % (1.7-12.7); Neutrophils % 51.7 % (38.7-73.9); Platelet Count 136 T/CUMM (130-400); Red Blood Count 2.93 MC/CUMM (3.8-5.5); Red Cell Distribution Width 19.6 % (9.3-17.3); White Blood Count 7.4 T/CUMM (4-12)
[2019-06-25] MEDS: PANTOPRAZOLE 40 MG TABLET PO SCH ×2 (09:31→20:57)
[2019-06-25] MEDS: SODIUM CHLORIDE 0.45% 1,000 ML IV SCH (09:31)
[2019-06-25] MEDS ORDERED: BISACODYL 5 MG TABLET PO ONE (09:33)
[2019-06-25] MEDS ORDERED: ALUM/MAG/SIMETH/LIDO VISC 1:1 30 ML BOTTLE PO ONE (11:44)
[2019-06-25] MEDS ORDERED: ONDANSETRON HCL 8 MG PO PRN (15:34)
[2019-06-25] MEDS ORDERED: BUDESONIDE/FORMOTEROL 160-4.5 INHALER 6 GM INH PRN (15:34)
[2019-06-25] MEDS ORDERED: DIAZEPAM 2 MG TABLET PO PRN (15:34)
[2019-06-25] MEDS: carvediloL 3.125 MG TABLET PO SCH (17:03)
[2019-06-25] MEDS: ESCITALOPRAM 10 MG TABLET PO SCH (20:56)
[2019-06-25] MEDS: APIXABAN 2.5 MG TABLET PO SCH (20:56)
[2019-06-25] MEDS: tiZANidine 4 MG TABLET PO SCH (20:56)
[2019-06-25] MEDS: cilostazoL 100 MG TABLET PO SCH (20:56)
[2019-06-25] MEDS: TEMAZEPAM 15 MG CAPSULE PO PRN (21:00)
[2019-06-26] MEDS: SODIUM CHLORIDE 0.45% 1,000 ML IV SCH ×2 (05:49→09:23)
[2019-06-26] MEDS ORDERED: Cyanocobalamin (Vitamin B-12) 1,000 MCG PO SCH (09:00)
[2019-06-26] MEDS ORDERED: PANTOPRAZOLE 40 MG TABLET PO SCH (09:00)
[2019-06-26] MEDS ORDERED: MULTIVITAMIN PO SCH (09:00)
[2019-06-26] MEDS: DIGOXIN 0.125 MG TABLET PO SCH (09:20)
[2019-06-26] MEDS: cilostazoL 100 MG TABLET PO SCH ×2 (09:21→20:38)
[2019-06-26] MEDS: APIXABAN 2.5 MG TABLET PO SCH ×2 (09:21→20:38)
[2019-06-26] MEDS: POTASSIUM CHLORIDE 10 MEQ TABLET PO SCH (09:21)
[2019-06-26] MEDS: carvediloL 3.125 MG TABLET PO SCH ×2 (09:22→17:21)
[2019-06-26] MEDS: PANTOPRAZOLE 40 MG TABLET PO SCH ×2 (09:22→20:38)
[2019-06-26] MEDS: TEMAZEPAM 15 MG CAPSULE PO PRN (20:37)
[2019-06-26] MEDS: ESCITALOPRAM 10 MG TABLET PO SCH (20:38)
[2019-06-26] MEDS: tiZANidine 4 MG TABLET PO SCH (20:38)
[2019-06-27] MEDS: PANTOPRAZOLE 40 MG TABLET PO SCH ×2 (08:23→20:32)
[2019-06-27] MEDS: DIGOXIN 0.125 MG TABLET PO SCH (08:23)
[2019-06-27] MEDS: POTASSIUM CHLORIDE 10 MEQ TABLET PO SCH (08:24)
[2019-06-27] MEDS: cilostazoL 100 MG TABLET PO SCH ×2 (08:24→20:31)
[2019-06-27] MEDS: APIXABAN 2.5 MG TABLET PO SCH ×2 (08:24→20:31)
[2019-06-27] MEDS: tiZANidine 4 MG TABLET PO SCH (20:31)
[2019-06-27] MEDS: ESCITALOPRAM 10 MG TABLET PO SCH (20:31)
[2019-06-27] MEDS: carvediloL 3.125 MG TABLET PO SCH (23:01)
[2019-06-27] MEDS: SODIUM CHLORIDE 0.45% 1,000 ML IV SCH (23:01)
[2019-06-28 07:59] VITALS: BP 132/50
[2019-06-28] MEDS: DIGOXIN 0.125 MG TABLET PO SCH (08:23)
[2019-06-28] MEDS: cilostazoL 100 MG TABLET PO SCH (08:24)
[2019-06-28] MEDS: PANTOPRAZOLE 40 MG TABLET PO SCH (08:24)
[2019-06-28] MEDS: POTASSIUM CHLORIDE 10 MEQ TABLET PO SCH (08:24)
[2019-06-28] MEDS: APIXABAN 2.5 MG TABLET PO SCH (08:24)
== END 2019-06-28 09:32 | disposition home or self-care (01) | DRG 271 ==
LOC: N.RAD 06:32 → N.SDSINP 06:34 → N.3E 13:30
PROVIDERS: ADMIT Surgery; ATTEND Surgery

== ENCOUNTER 2020-10-23 08:07 | Inpatient (IN) ==
[2020-10-23 09:03] LABS: INR 1.1; PT Patient Result 11.3 SECS (9.8-11.9)
[2020-10-23 09:10] LABS: Albumin 3.1 G/DL (3.4-5.0); Bilirubin,Total 0.6 MG/DL (0.2-1.0); Calcium 8.7 MG/DL (8.5-10.1); Ferritin 27.4 ng/ml (8-252); Osmolality,Calculated 272.1 MOS/KG (273-304); Potassium 4.2 MMOL/L (3.5-5.1); Total Protein 6.7 G/DL (6.4-8.3)
[2020-10-23 09:13] LABS: Basophils % 0.1 % (0.0-0.8); Eosinophils # 0.1 10*3/uL (0.0-0.87); Eosinophils % 0.6 % (0.00-10.9); Hematocrit 40.3 VOL% (35.7-47.0); Immature Granulocytes % 0.8 %; Immature Granulocytes Absolute 0.07 #; Lymphocytes # 1.3 10*3/uL (1.4-4.0); Lymphocytes % 14.4 % (21.3-54.2); Mean Corpuscular HGB Conc 30.8 GM/DL (32-36); Mean Corpuscular Volume 86.5 FL (87-102); Mean Platelet Volume 11.1 FL (9.6-12.0); Monocytes % 9.3 % (1.7-12.7); NRBC # 0.04 10*3/uL; Neutrophils % 74.8 % (38.7-73.9); Platelet Count 200 T/CUMM (130-400); Red Blood Count 4.66 MC/CUMM (3.8-5.5); Red Cell Distribution Width 16.9 % (9.3-17.3); White Blood Count 8.9 T/CUMM (4-12)
[2020-10-23 09:16] LABS: Hemoglobin 12.4 GM/DL (12.0-16.0)
[2020-10-23] MEDS ORDERED: cefTRIAXone 1,000 MG in SODIUM CHLORIDE 0.9% 100 ML IV STA (10:09)
[2020-10-23] MEDS ORDERED: SODIUM CHLORIDE 0.9% 500 ML IV STA (10:10)
[2020-10-23] MEDS ORDERED: ALBUTEROL 2.5 MG/3 ML NEB RESP TX STA (10:33)
[2020-10-23] MEDS ORDERED: diphenhydrAMINE CAP 25 MG CAPSULE PO PRN (11:10)
[2020-10-23] MEDS ORDERED: DOCUSATE SODIUM 100 MG CAPSULE PO PRN (11:10)
[2020-10-23] MEDS ORDERED: ONDANSETRON 4 MG/2 ML VIAL IV PRN (11:10)
[2020-10-23] MEDS ORDERED: ALUMINUM/MAGNES/SIMETH MAX STR 30 ML UDCUP PO PRN (11:10)
[2020-10-23] MEDS ORDERED: PROMETHAZINE 25 MG TABLET PO PRN (11:10)
[2020-10-23] MEDS ORDERED: AZITHROMYCIN INJ 500 MG in SODIUM CHLORIDE 0.9% 250 ML IV ONE (11:15)
[2020-10-23] MEDS ORDERED: ENOXAPARIN 30 MG/0.3 ML SYRINGE SUBCUT SCH (11:30)
[2020-10-23] MEDS ORDERED: DEXAMETHASONE 10 MG/1 ML VIAL ONE (12:56)
[2020-10-23] MEDS: SODIUM CHLORIDE 0.9% 1,000 ML IV SCH (13:00)
[2020-10-23] MEDS: ASCORBIC ACID 500 MG TABLET PO SCH ×3 (13:23→21:51)
[2020-10-23] MEDS: ZINC GLUCONATE 50 MG TABLET PO SCH ×2 (13:23→15:02)
[2020-10-23] MEDS: FAMOTIDINE 20 MG TABLET PO SCH ×3 (13:23→21:50)
[2020-10-23] MEDS: DEXAMETHASONE 4 MG/1 ML VIAL IV SCH ×2 (13:24→15:02)
[2020-10-23] MEDS: ACETAMINOPHEN 325 MG TABLET PO PRN (13:24)
[2020-10-23 14:35] LABS: ABG Base Excess 3.2 MMOL/L (-2.5-2.5); ABG HCO3 27.2 MMOL/L (20-26); ABG Oxygen Saturation 95.7 % (95-100); ABG PCO2 48.9 MM HG (35-48); ABG PH 7.382 (7.35-7.45); ABG PO2 84.9 MM HG (80-95); ABG TCO2 26.1 MMOL/L (23-27)
[2020-10-23] MEDS ORDERED: REMDESIVIR 200 MG in SODIUM CHLORIDE 0.9% 210 ML IV ONE (15:00)
[2020-10-23] MEDS: CHOLECALCIFEROL 1,000 UNIT TABLET PO SCH (15:02)
[2020-10-23] MEDS: CETIRIZINE 10 MG TABLET PO SCH (15:02)
[2020-10-23] MEDS: ALBUTEROL INHALER 18 GM INH SCH ×2 (16:30→20:52)
[2020-10-23] MEDS: APIXABAN 2.5 MG TABLET PO SCH (21:49)
[2020-10-23] MEDS: ESCITALOPRAM 10 MG TABLET PO SCH (21:50)
[2020-10-23] MEDS: BUDESONIDE/FORMOTEROL 160-4.5 INHALER 6 GM INH SCH (21:50)
[2020-10-23] MEDS: guaiFENesin/DM ER 600-30 MG TABLET PO SCH (21:50)
[2020-10-23] MEDS: DIGOXIN 0.125 MG TABLET PO SCH (21:50)
[2020-10-23] MEDS: MELATONIN 3 MG TABLET PO PRN (21:51)
[2020-10-24] MEDS: ALBUTEROL INHALER 18 GM INH SCH ×5 (00:08→21:15)
[2020-10-24 04:43] LABS: ABG Base Excess 1.3 MMOL/L (-2.5-2.5); ABG HCO3 24.9 MMOL/L (20-26); ABG Oxygen Saturation 97.8 % (95-100); ABG PCO2 36.1 MM HG (35-48); ABG PH 7.456 (7.35-7.45); ABG PO2 98.3 MM HG (80-95)
[2020-10-24 05:43] LABS: Hematocrit 40.3 VOL% (35.7-47.0); Hemoglobin 12.2 GM/DL (12.0-16.0); Immature Granulocytes % 0.4 %; Immature Granulocytes Absolute 0.02 #; Lymphocytes # 0.5 10*3/uL (1.4-4.0); Lymphocytes % 10.7 % (21.3-54.2); Mean Corpuscular HGB Conc 30.3 GM/DL (32-36); Mean Corpuscular Volume 87.8 FL (87-102); Mean Platelet Volume 11.3 FL (9.6-12.0); Neutrophils % 84.9 % (38.7-73.9); Platelet Count 182 T/CUMM (130-400); Red Blood Count 4.59 MC/CUMM (3.8-5.5); Red Cell Distribution Width 16.8 % (9.3-17.3)
[2020-10-24 06:02] LABS: Albumin 2.6 G/DL (3.4-5.0); Calcium 8.2 MG/DL (8.5-10.1); Ferritin 32.3 ng/ml (8-252); Osmolality,Calculated 277.8 MOS/KG (273-304); Potassium 4.3 MMOL/L (3.5-5.1); Total Protein 6.4 G/DL (6.4-8.3)
[2020-10-24 06:07] LABS: Lymphocytes 8 % (20-55); Segmented Neutrophils 91 % (50-85); Total Cells Counted 100
[2020-10-24 06:08] LABS: Platelet Estimate Normal
[2020-10-24 06:58] LABS: Sedimentation Rate-Westergren 17 MM/HR (0-30)
[2020-10-24] MEDS: DEXAMETHASONE 4 MG/1 ML VIAL IV SCH (08:16)
[2020-10-24] MEDS: CHOLECALCIFEROL 1,000 UNIT TABLET PO SCH (08:16)
[2020-10-24] MEDS: ZINC GLUCONATE 50 MG TABLET PO SCH (08:16)
[2020-10-24] MEDS: guaiFENesin/DM ER 600-30 MG TABLET PO SCH (08:16)
[2020-10-24] MEDS: PANTOPRAZOLE 40 MG TABLET PO SCH (08:17)
[2020-10-24] MEDS: APIXABAN 2.5 MG TABLET PO SCH ×2 (08:17→21:36)
[2020-10-24] MEDS: MAGNESIUM OXIDE 400 MG TABLET PO SCH (08:17)
[2020-10-24] MEDS: ASCORBIC ACID 500 MG TABLET PO SCH ×2 (08:17→21:37)
[2020-10-24] MEDS: CETIRIZINE 10 MG TABLET PO SCH (08:17)
[2020-10-24] MEDS: AZITHROMYCIN 250 MG TABLET PO SCH (08:17)
[2020-10-24] MEDS: FAMOTIDINE 20 MG TABLET PO SCH ×2 (08:17→21:37)
[2020-10-24] MEDS: CYANOCOBALAMIN 500 MCG TABLET PO SCH (08:18)
[2020-10-24] MEDS ORDERED: FUROSEMIDE 40 MG/4 ML VIAL IV ONE (09:48)
[2020-10-24] MEDS: amLODIPine 5 MG TABLET PO SCH (10:08)
[2020-10-24] MEDS: POTASSIUM CHLORIDE 10 MEQ TABLET PO SCH (10:08)
[2020-10-24] MEDS: REMDESIVIR 100 MG in SODIUM CHLORIDE 0.9% 100 ML IV SCH (10:08)
[2020-10-24] MEDS: SODIUM CHLORIDE 0.9% 1,000 ML IV SCH (10:09)
[2020-10-24] MEDS: FLUTICASONE 50 MCG NASAL SPRAY 16 GM BOTTLE BOTH NARES SCH (11:31)
[2020-10-24] MEDS: BUDESONIDE/FORMOTEROL 160-4.5 INHALER 6 GM INH SCH ×2 (11:32→21:37)
[2020-10-24] MEDS: DIGOXIN 0.125 MG TABLET PO SCH (21:36)
[2020-10-24] MEDS: MELATONIN 3 MG TABLET PO PRN (21:36)
[2020-10-24] MEDS: ACETAMINOPHEN 325 MG TABLET PO PRN (21:36)
[2020-10-24] MEDS: ESCITALOPRAM 10 MG TABLET PO SCH (21:37)
[2020-10-25] MEDS: ALBUTEROL INHALER 18 GM INH SCH ×4 (00:10→18:38)
[2020-10-25 06:17] LABS: Hematocrit 39.5 VOL% (35.7-47.0); Hemoglobin 12.2 GM/DL (12.0-16.0); Immature Granulocytes % 0.3 %; Immature Granulocytes Absolute 0.03 #; Lymphocytes # 0.7 10*3/uL (1.4-4.0); Lymphocytes % 7.2 % (21.3-54.2); Mean Corpuscular HGB Conc 30.9 GM/DL (32-36); Mean Corpuscular Volume 87.2 FL (87-102); Mean Platelet Volume 11.4 FL (9.6-12.0); Monocytes % 8.8 % (1.7-12.7); Neutrophils % 83.7 % (38.7-73.9); Platelet Count 207 T/CUMM (130-400); Red Blood Count 4.53 MC/CUMM (3.8-5.5); Red Cell Distribution Width 16.6 % (9.3-17.3); White Blood Count 9.3 T/CUMM (4-12)
[2020-10-25 06:43] LABS: Albumin 2.7 G/DL (3.4-5.0); Bilirubin,Total 0.7 MG/DL (0.2-1.0); Calcium 8.4 MG/DL (8.5-10.1); Ferritin 35.8 ng/ml (8-252); Osmolality,Calculated 278.8 MOS/KG (273-304); Potassium 4.2 MMOL/L (3.5-5.1); Total Protein 6.2 G/DL (6.4-8.3)
[2020-10-25 07:41] LABS: Sedimentation Rate-Westergren 12 MM/HR (0-30)
[2020-10-25] MEDS: REMDESIVIR 100 MG in SODIUM CHLORIDE 0.9% 100 ML IV SCH (09:55)
[2020-10-25] MEDS: PANTOPRAZOLE 40 MG TABLET PO SCH (09:56)
[2020-10-25] MEDS: DEXAMETHASONE 4 MG/1 ML VIAL IV SCH (09:57)
[2020-10-25] MEDS: MAGNESIUM OXIDE 400 MG TABLET PO SCH (09:58)
[2020-10-25] MEDS: CHOLECALCIFEROL 1,000 UNIT TABLET PO SCH (09:58)
[2020-10-25] MEDS: ZINC GLUCONATE 50 MG TABLET PO SCH (09:58)
[2020-10-25] MEDS: FAMOTIDINE 20 MG TABLET PO SCH ×2 (09:58→20:42)
[2020-10-25] MEDS: ASCORBIC ACID 500 MG TABLET PO SCH ×2 (09:59→20:42)
[2020-10-25] MEDS: APIXABAN 2.5 MG TABLET PO SCH ×2 (09:59→20:42)
[2020-10-25] MEDS: CETIRIZINE 10 MG TABLET PO SCH (10:00)
[2020-10-25] MEDS: CYANOCOBALAMIN 500 MCG TABLET PO SCH (10:00)
[2020-10-25] MEDS: POTASSIUM CHLORIDE 10 MEQ TABLET PO SCH (10:00)
[2020-10-25] MEDS: amLODIPine 5 MG TABLET PO SCH (10:01)
[2020-10-25] MEDS: AZITHROMYCIN 250 MG TABLET PO SCH (10:01)
[2020-10-25] MEDS: BUDESONIDE/FORMOTEROL 160-4.5 INHALER 6 GM INH SCH ×2 (10:02→20:57)
[2020-10-25] MEDS: FLUTICASONE 50 MCG NASAL SPRAY 16 GM BOTTLE BOTH NARES SCH (11:05)
[2020-10-25] MEDS ORDERED: PROMETHAZINE 25 MG/1 ML VIAL IM ONE (12:30)
[2020-10-25] MEDS ORDERED: MEPERIDINE 50 MG/1 ML VIAL IM ONE (12:30)
[2020-10-25] MEDS ORDERED: LIDOCAINE 2% 20 ML VIAL RESP TX ONE (13:00)
[2020-10-25] MEDS ORDERED: LIDOCAINE 1% 20 ML VIAL MISC INJ ONE (13:00)
[2020-10-25] MEDS ORDERED: MIDAZOLAM 2 MG/2 ML VIAL IV ONE (13:00)
[2020-10-25] MEDS ORDERED: LIDOCAINE 2% VISCOUS 100 ML BOTTLE SWISH/SPIT ONE (13:00)
[2020-10-25] MEDS: ACETAMINOPHEN 325 MG TABLET PO PRN (20:42)
[2020-10-25] MEDS: DIGOXIN 0.125 MG TABLET PO SCH (20:42)
[2020-10-25] MEDS: ESCITALOPRAM 10 MG TABLET PO SCH (20:42)
[2020-10-25] MEDS: MELATONIN 3 MG TABLET PO PRN (20:42)
[2020-10-26] MEDS: ALBUTEROL INHALER 18 GM INH SCH ×4 (02:10→21:35)
[2020-10-26 05:43] LABS: Albumin 2.6 G/DL (3.4-5.0); Bilirubin,Total 1.3 MG/DL (0.2-1.0); Calcium 8.6 MG/DL (8.5-10.1); Ferritin 36.7 ng/ml (8-252); Osmolality,Calculated 275.1 MOS/KG (273-304); Potassium 4.1 MMOL/L (3.5-5.1); Total Protein 6.1 G/DL (6.4-8.3)
[2020-10-26 06:04] LABS: Basophils % 0.1 % (0.0-0.8); Hematocrit 38.4 VOL% (35.7-47.0); Immature Granulocytes % 0.6 %; Immature Granulocytes Absolute 0.09 #; Lymphocytes # 0.6 10*3/uL (1.4-4.0); Lymphocytes % 3.8 % (21.3-54.2); Mean Corpuscular HGB Conc 30.7 GM/DL (32-36); Mean Corpuscular Volume 86.7 FL (87-102); Mean Platelet Volume 11.3 FL (9.6-12.0); Monocytes % 7.5 % (1.7-12.7); Platelet Count 200 T/CUMM (130-400); Red Blood Count 4.43 MC/CUMM (3.8-5.5); Red Cell Distribution Width 16.6 % (9.3-17.3); White Blood Count 14.9 T/CUMM (4-12)
[2020-10-26 06:06] LABS: Hemoglobin 11.8 GM/DL (12.0-16.0)
[2020-10-26 06:16] LABS: Hypochromasia Slight; Lymphocytes 2 % (20-55); Microcytosis Slight; Platelet Estimate Adequate; Segmented Neutrophils 95 % (50-85); Total Cells Counted 100
[2020-10-26 07:19] LABS: Sedimentation Rate-Westergren 12 MM/HR (0-30)
[2020-10-26] MEDS: REMDESIVIR 100 MG in SODIUM CHLORIDE 0.9% 100 ML IV SCH (08:47)
[2020-10-26] MEDS: CHOLECALCIFEROL 1,000 UNIT TABLET PO SCH (08:48)
[2020-10-26] MEDS: CYANOCOBALAMIN 500 MCG TABLET PO SCH (08:48)
[2020-10-26] MEDS: DEXAMETHASONE 4 MG/1 ML VIAL IV SCH (08:48)
[2020-10-26] MEDS: POTASSIUM CHLORIDE 10 MEQ TABLET PO SCH (08:49)
[2020-10-26] MEDS: FAMOTIDINE 20 MG TABLET PO SCH ×2 (08:49→21:19)
[2020-10-26] MEDS: ZINC GLUCONATE 50 MG TABLET PO SCH (08:49)
[2020-10-26] MEDS: PANTOPRAZOLE 40 MG TABLET PO SCH (08:49)
[2020-10-26] MEDS: APIXABAN 2.5 MG TABLET PO SCH ×2 (08:49→21:19)
[2020-10-26] MEDS: FLUCONAZOLE 100 MG TABLET PO SCH (08:49)
[2020-10-26] MEDS: AZITHROMYCIN 250 MG TABLET PO SCH (08:49)
[2020-10-26] MEDS: CETIRIZINE 10 MG TABLET PO SCH (08:49)
[2020-10-26] MEDS: ASCORBIC ACID 500 MG TABLET PO SCH ×2 (08:49→21:18)
[2020-10-26] MEDS: MAGNESIUM OXIDE 400 MG TABLET PO SCH (08:49)
[2020-10-26] MEDS: BUDESONIDE/FORMOTEROL 160-4.5 INHALER 6 GM INH SCH ×2 (08:50→21:35)
[2020-10-26] MEDS: amLODIPine 5 MG TABLET PO SCH (08:50)
[2020-10-26] MEDS: FLUTICASONE 50 MCG NASAL SPRAY 16 GM BOTTLE BOTH NARES SCH (08:51)
[2020-10-26] MEDS ORDERED: TEMAZEPAM 15 MG CAPSULE PO ONE (19:21)
[2020-10-26] MEDS: DIGOXIN 0.125 MG TABLET PO SCH (21:19)
[2020-10-26] MEDS: ESCITALOPRAM 10 MG TABLET PO SCH (21:19)
[2020-10-26] MEDS: ACETAMINOPHEN 325 MG TABLET PO PRN (21:19)
[2020-10-27] MEDS: ALBUTEROL INHALER 18 GM INH SCH ×4 (03:56→18:13)
[2020-10-27 06:28] LABS: Calcium 8.9 MG/DL (8.5-10.1); Osmolality,Calculated 284.3 MOS/KG (273-304); Potassium 4.1 MMOL/L (3.5-5.1)
[2020-10-27 06:35] LABS: Basophils % 0.1 % (0.0-0.8); Hematocrit 39.6 VOL% (35.7-47.0); Hemoglobin 12.1 GM/DL (12.0-16.0); Immature Granulocytes % 0.4 %; Immature Granulocytes Absolute 0.05 #; Lymphocytes # 0.5 10*3/uL (1.4-4.0); Lymphocytes % 4.4 % (21.3-54.2); Mean Corpuscular HGB Conc 30.6 GM/DL (32-36); Mean Corpuscular Volume 87.8 FL (87-102); Mean Platelet Volume 11.2 FL (9.6-12.0); Monocytes % 8.3 % (1.7-12.7); Neutrophils % 86.8 % (38.7-73.9); Platelet Count 199 T/CUMM (130-400); Red Blood Count 4.51 MC/CUMM (3.8-5.5); Red Cell Distribution Width 16.6 % (9.3-17.3); White Blood Count 12.2 T/CUMM (4-12)
[2020-10-27 06:39] LABS: Hypochromasia 1+; Lymphocytes 2 % (20-55); Microcytosis 1+; Platelet Estimate Adequate; Segmented Neutrophils 90 % (50-85); Total Cells Counted 100
[2020-10-27] MEDS: ZINC GLUCONATE 50 MG TABLET PO SCH (09:30)
[2020-10-27] MEDS: FAMOTIDINE 20 MG TABLET PO SCH ×2 (09:30→21:47)
[2020-10-27] MEDS: CHOLECALCIFEROL 1,000 UNIT TABLET PO SCH (09:30)
[2020-10-27] MEDS: ASCORBIC ACID 500 MG TABLET PO SCH ×2 (09:30→21:47)
[2020-10-27] MEDS: POTASSIUM CHLORIDE 10 MEQ TABLET PO SCH (09:30)
[2020-10-27] MEDS: CYANOCOBALAMIN 500 MCG TABLET PO SCH (09:30)
[2020-10-27] MEDS: APIXABAN 2.5 MG TABLET PO SCH ×2 (09:30→21:46)
[2020-10-27] MEDS: MAGNESIUM OXIDE 400 MG TABLET PO SCH (09:30)
[2020-10-27] MEDS: PANTOPRAZOLE 40 MG TABLET PO SCH (09:30)
[2020-10-27] MEDS: FLUCONAZOLE 100 MG TABLET PO SCH (09:30)
[2020-10-27] MEDS: DEXAMETHASONE 4 MG/1 ML VIAL IV SCH (09:30)
[2020-10-27] MEDS: REMDESIVIR 100 MG in SODIUM CHLORIDE 0.9% 100 ML IV SCH (09:30)
[2020-10-27] MEDS: amLODIPine 5 MG TABLET PO SCH (09:30)
[2020-10-27] MEDS: CETIRIZINE 10 MG TABLET PO SCH (09:30)
[2020-10-27] MEDS: AZITHROMYCIN 250 MG TABLET PO SCH (09:30)
[2020-10-27] MEDS: FLUTICASONE 50 MCG NASAL SPRAY 16 GM BOTTLE BOTH NARES SCH (10:42)
[2020-10-27] MEDS: BUDESONIDE/FORMOTEROL 160-4.5 INHALER 6 GM INH SCH ×2 (10:51→21:47)
[2020-10-27] MEDS: NICOTINE 14 MG/24 HR PATCH TRANSDERM SCH (18:12)
[2020-10-27] MEDS: methylPREDNISolone SOD SUC 40 MG/1 ML VIAL IV SCH (18:13)
[2020-10-27] MEDS: DIGOXIN 0.125 MG TABLET PO SCH (21:46)
[2020-10-27] MEDS: ESCITALOPRAM 10 MG TABLET PO SCH (21:46)
[2020-10-27] MEDS: MELATONIN 3 MG TABLET PO PRN (21:48)
[2020-10-27] MEDS: ACETAMINOPHEN 325 MG TABLET PO PRN (21:48)
[2020-10-28] MEDS: ALBUTEROL INHALER 18 GM INH SCH ×3 (00:22→12:17)
[2020-10-28] MEDS: methylPREDNISolone SOD SUC 40 MG/1 ML VIAL IV SCH (04:18)
[2020-10-28 06:02] LABS: Basophils % 0.1 % (0.0-0.8); Hematocrit 43.9 VOL% (35.7-47.0); Hemoglobin 13.3 GM/DL (12.0-16.0); Immature Granulocytes % 0.5 %; Immature Granulocytes Absolute 0.04 #; Lymphocytes # 0.5 10*3/uL (1.4-4.0); Lymphocytes % 6.8 % (21.3-54.2); Mean Corpuscular HGB Conc 30.3 GM/DL (32-36); Mean Corpuscular Volume 88.3 FL (87-102); Mean Platelet Volume 10.9 FL (9.6-12.0); Monocytes % 3.8 % (1.7-12.7); Neutrophils % 88.8 % (38.7-73.9); Platelet Count 219 T/CUMM (130-400); Red Blood Count 4.97 MC/CUMM (3.8-5.5); Red Cell Distribution Width 16.8 % (9.3-17.3); White Blood Count 7.5 T/CUMM (4-12)
[2020-10-28 06:14] LABS: Calcium 9.4 MG/DL (8.5-10.1); Osmolality,Calculated 278.8 MOS/KG (273-304); Potassium 4.4 MMOL/L (3.5-5.1)
[2020-10-28] MEDS: FLUCONAZOLE 100 MG TABLET PO SCH (08:35)
[2020-10-28] MEDS: APIXABAN 2.5 MG TABLET PO SCH (08:35)
[2020-10-28] MEDS: FLUTICASONE 50 MCG NASAL SPRAY 16 GM BOTTLE BOTH NARES SCH (08:35)
[2020-10-28] MEDS: amLODIPine 5 MG TABLET PO SCH (08:36)
[2020-10-28] MEDS: PANTOPRAZOLE 40 MG TABLET PO SCH (08:36)
[2020-10-28] MEDS: NICOTINE 14 MG/24 HR PATCH TRANSDERM SCH ×2 (08:36→09:51)
[2020-10-28] MEDS: CYANOCOBALAMIN 500 MCG TABLET PO SCH (08:36)
[2020-10-28] MEDS: POTASSIUM CHLORIDE 10 MEQ TABLET PO SCH (08:36)
[2020-10-28] MEDS: FAMOTIDINE 20 MG TABLET PO SCH (08:36)
[2020-10-28] MEDS: BUDESONIDE/FORMOTEROL 160-4.5 INHALER 6 GM INH SCH (08:36)
[2020-10-28] MEDS: MAGNESIUM OXIDE 400 MG TABLET PO SCH (08:36)
[2020-10-28] MEDS: CETIRIZINE 10 MG TABLET PO SCH (08:37)
[2020-10-28] MEDS: CHOLECALCIFEROL 1,000 UNIT TABLET PO SCH (08:37)
[2020-10-28] MEDS: ASCORBIC ACID 500 MG TABLET PO SCH (08:37)
[2020-10-28] MEDS: ZINC GLUCONATE 50 MG TABLET PO SCH (08:37)
[2020-10-28 11:33] VITALS: BP 143/70
== END 2020-10-28 15:56 | disposition home health service (06) | DRG 177 ==
LOC: EDBD → EDUNIT# → N.ED 08:07 → SUATTDRO 11:00 → N.EDINP 11:00 → N.2E 14:29
PROVIDERS: ADMIT Internal Medicine; ATTEND Internal Medicine

== ENCOUNTER 2021-09-02 01:13 | Inpatient (IN) ==
[2021-09-02] MEDS ORDERED: PIPERACILLIN/TAZOBACTAM 3,375 MG in SODIUM CHLORIDE 0.9% 100 ML IV STA (01:38)
[2021-09-02] MEDS ORDERED: ONDANSETRON 4 MG/2 ML VIAL IV STA (01:38)
[2021-09-02] MEDS ORDERED: methylPREDNISolone SOD SUC 125 MG/2 ML VIAL IV STA (01:38)
[2021-09-02] MEDS ORDERED: FUROSEMIDE 40 MG/4 ML VIAL IV STA (01:38)
[2021-09-02] MEDS ORDERED: ALBUTEROL NEB SOLN 5 MG/ML 20 ML/BOTTLE CONT NEB SCH (02:00)
[2021-09-02 02:03] LABS: ABG Base Excess 0.8 MMOL/L (-2.5-2.5); ABG HCO3 25.2 MMOL/L (20-26); ABG Oxygen Saturation 94.9 % (95-100); ABG PCO2 39.8 MM HG (35-48); ABG PO2 76.1 MM HG (80-95); ABG TCO2 26.5 MMOL/L (23-27)
[2021-09-02 02:29] LABS: Basophils % 0.1 % (0.0-0.8)
[2021-09-02 02:35] LABS: Bacteria,Urine Occasional /HPF (Few); Bilirubin,Urine Negative (Negative); Blood, Urine Negative (Negative); Glucose,Urine (UA) Negative (Negative); Hyaline Casts,Urine 3 /LPF (0-3); Ketones,Urine Negative (Negative); Mucus,Urine Occasional /LPF (Occasional); Nitrite,Urine Negative (Negative); Protein,Urine 100 MG/DL; RBC,Urine 2 /HPF (0-4); Squamous Epithelial Cell,Urine Occasional /HPF (0-10); Urine Appearance CLEAR (Clear); Urine Color Yellow (Yellow); Urine Specific Gravity 1.016 (1.001-1.035); Urine Urobilinogen < 2.0 EU/DL (0.2-1.0)
[2021-09-02 02:48] LABS: Albumin 3.4 G/DL (3.4-5.0); Bilirubin,Total 0.6 MG/DL (0.20-1.00); Calcium 8.7 MG/DL (8.5-10.1); Hematocrit 39.6 VOL% (35.7-47.0); Immature Granulocytes % 0.6 %; Immature Granulocytes Absolute 0.05 #; Lymphocytes # 0.5 10*3/uL (1.4-4.0); Lymphocytes % 5.5 % (21.3-54.2); Mean Corpuscular HGB Conc 30.3 GM/DL (32-36); Mean Corpuscular Volume 85.3 FL (87-102); Mean Platelet Volume 11.4 FL (9.6-12.0); Monocytes % 9.9 % (1.7-12.7); Neutrophils % 83.9 % (38.7-73.9); Osmolality,Calculated 280.5 MOS/KG (273-304); Platelet Count 196 T/CUMM (130-400); Potassium 4.3 MMOL/L (3.5-5.1); Red Blood Count 4.64 MC/CUMM (3.8-5.5); Red Cell Distribution Width 19.1 % (9.3-17.3); White Blood Count 8.3 T/CUMM (4-12)
[2021-09-02 03:10] LABS: INR 1.1
[2021-09-02] MEDS ORDERED: DEXTROSE 50% 25 GM/50 ML SYRINGE IV PRN (04:10)
[2021-09-02] MEDS ORDERED: GLUCAGON 1 MG VIAL IM PRN (04:10)
[2021-09-02] MEDS ORDERED: ACETAMINOPHEN 325 MG TABLET PO PRN (04:12)
[2021-09-02] MEDS ORDERED: ONDANSETRON 4 MG/2 ML VIAL IV PRN (04:12)
[2021-09-02] MEDS ORDERED: SIMETHICONE CHEW 125 MG TABLET PO PRN (04:12)
[2021-09-02] MEDS: AZITHROMYCIN INJ 500 MG in SODIUM CHLORIDE 0.9% 250 ML IV SCH (05:16)
[2021-09-02] MEDS: ALBUTEROL/IPRATROPIUM 3 ML NEB RESP TX SCH ×3 (07:45→19:57)
[2021-09-02] MEDS ORDERED: POTASSIUM CHLORIDE 20 MEQ TABLET PO SCH (09:00)
[2021-09-02] MEDS: methylPREDNISolone SOD SUC 40 MG/1 ML VIAL IV SCH ×3 (09:30→20:39)
[2021-09-02] MEDS: cefTRIAXone 1,000 MG in SODIUM CHLORIDE 0.9% 100 ML IV SCH (09:31)
[2021-09-02] MEDS: ASCORBIC ACID 500 MG TABLET PO SCH (09:31)
[2021-09-02] MEDS: MULTIVITAMIN (CENTRUM) TABLET PO SCH (09:31)
[2021-09-02] MEDS: DOCUSATE SODIUM 100 MG CAPSULE PO SCH ×2 (09:31→20:38)
[2021-09-02] MEDS: cilostazoL 100 MG TABLET PO SCH ×2 (09:32→20:38)
[2021-09-02] MEDS: CYANOCOBALAMIN 500 MCG TABLET PO SCH (09:32)
[2021-09-02] MEDS: PANTOPRAZOLE 40 MG TABLET PO SCH (09:32)
[2021-09-02] MEDS: CHOLECALCIFEROL 1,000 UNIT TABLET PO SCH (09:32)
[2021-09-02] MEDS: APIXABAN 2.5 MG TABLET PO SCH ×2 (09:32→20:38)
[2021-09-02] MEDS: MAGNESIUM OXIDE 400 MG TABLET PO SCH (09:33)
[2021-09-02] MEDS: BUDESONIDE/FORMOTEROL 160-4.5 INHALER 6 GM INH SCH ×2 (10:16→20:39)
[2021-09-02] MEDS: FLUTICASONE 50 MCG NASAL SPRAY 16 GM BOTTLE BOTH NARES SCH (10:16)
[2021-09-02] MEDS: DIGOXIN 0.125 MG TABLET PO SCH (15:00)
[2021-09-02] MEDS: ESCITALOPRAM 10 MG TABLET PO SCH (18:05)
[2021-09-02] MEDS: TEMAZEPAM 15 MG CAPSULE PO SCH (20:38)
[2021-09-03] MEDS: ALBUTEROL/IPRATROPIUM 3 ML NEB RESP TX SCH ×4 (00:01→19:21)
[2021-09-03] MEDS: methylPREDNISolone SOD SUC 40 MG/1 ML VIAL IV SCH ×4 (03:01→20:04)
[2021-09-03] MEDS: AZITHROMYCIN INJ 500 MG in SODIUM CHLORIDE 0.9% 250 ML IV SCH (05:11)
[2021-09-03 05:40] LABS: Basophils % 0.1 % (0.0-0.8); Hematocrit 35.7 VOL% (35.7-47.0); Hemoglobin 10.7 GM/DL (12.0-16.0); Immature Granulocytes % 0.6 %; Immature Granulocytes Absolute 0.05 #; Lymphocytes # 0.4 10*3/uL (1.4-4.0); Lymphocytes % 4.5 % (21.3-54.2); Mean Platelet Volume 11.4 FL (9.6-12.0); Neutrophils % 89.8 % (38.7-73.9); Platelet Count 166 T/CUMM (130-400); Red Blood Count 4.15 MC/CUMM (3.8-5.5); Red Cell Distribution Width 18.8 % (9.3-17.3)
[2021-09-03 06:10] LABS: Calcium 8.3 MG/DL (8.5-10.1); Osmolality,Calculated 278.8 MOS/KG (273-304); Potassium 3.7 MMOL/L (3.5-5.1); Risk Ratio 1.87; VLDL Cholesterol 13.2 MG/DL
[2021-09-03 06:52] LABS: Hypochromasia 2+; Platelet Estimate Normal; Segmented Neutrophils 98 % (50-85); Total Cells Counted 100
[2021-09-03 06:53] LABS: Ovalocytes Few; Polychromasia Slight
[2021-09-03 06:54] LABS: Microcytosis 1+
[2021-09-03] MEDS: POTASSIUM CHLORIDE 10 MEQ TABLET PO SCH (08:58)
[2021-09-03] MEDS: CHOLECALCIFEROL 1,000 UNIT TABLET PO SCH (08:58)
[2021-09-03] MEDS: MAGNESIUM OXIDE 400 MG TABLET PO SCH (08:58)
[2021-09-03] MEDS: cilostazoL 100 MG TABLET PO SCH ×2 (08:58→20:01)
[2021-09-03] MEDS: MULTIVITAMIN (CENTRUM) TABLET PO SCH (08:58)
[2021-09-03] MEDS: ASCORBIC ACID 500 MG TABLET PO SCH (08:59)
[2021-09-03] MEDS: PANTOPRAZOLE 40 MG TABLET PO SCH (08:59)
[2021-09-03] MEDS: DOCUSATE SODIUM 100 MG CAPSULE PO SCH ×2 (08:59→20:01)
[2021-09-03] MEDS: CYANOCOBALAMIN 500 MCG TABLET PO SCH (08:59)
[2021-09-03] MEDS: APIXABAN 2.5 MG TABLET PO SCH ×2 (08:59→20:01)
[2021-09-03] MEDS: cefTRIAXone 1,000 MG in SODIUM CHLORIDE 0.9% 100 ML IV SCH (09:01)
[2021-09-03] MEDS: FLUTICASONE 50 MCG NASAL SPRAY 16 GM BOTTLE BOTH NARES SCH (09:03)
[2021-09-03] MEDS: BUDESONIDE/FORMOTEROL 160-4.5 INHALER 6 GM INH SCH ×2 (09:04→20:02)
[2021-09-03] MEDS: DIGOXIN 0.125 MG TABLET PO SCH (14:11)
[2021-09-03] MEDS: ESCITALOPRAM 10 MG TABLET PO SCH (20:01)
[2021-09-03] MEDS: TEMAZEPAM 15 MG CAPSULE PO SCH (20:02)
[2021-09-04] MEDS: ALBUTEROL/IPRATROPIUM 3 ML NEB RESP TX SCH ×4 (00:20→19:38)
[2021-09-04] MEDS: LORazepam 0.5 MG TABLET PO PRN (14:04)
[2021-09-04] MEDS: methylPREDNISolone SOD SUC 40 MG/1 ML VIAL IV SCH ×3 (14:06→20:55)
[2021-09-04] MEDS: APIXABAN 2.5 MG TABLET PO SCH ×2 (17:00→20:55)
[2021-09-04] MEDS: FLUTICASONE 50 MCG NASAL SPRAY 16 GM BOTTLE BOTH NARES SCH (17:00)
[2021-09-04] MEDS: AZITHROMYCIN INJ 500 MG in SODIUM CHLORIDE 0.9% 250 ML IV SCH (17:00)
[2021-09-04] MEDS: MULTIVITAMIN (CENTRUM) TABLET PO SCH (17:00)
[2021-09-04] MEDS: DOCUSATE SODIUM 100 MG CAPSULE PO SCH ×2 (17:00→20:55)
[2021-09-04] MEDS: PANTOPRAZOLE 40 MG TABLET PO SCH (17:01)
[2021-09-04] MEDS: cilostazoL 100 MG TABLET PO SCH ×2 (17:01→20:54)
[2021-09-04] MEDS: cefTRIAXone 1,000 MG in SODIUM CHLORIDE 0.9% 100 ML IV SCH (17:01)
[2021-09-04] MEDS: MAGNESIUM OXIDE 400 MG TABLET PO SCH (17:01)
[2021-09-04] MEDS: POTASSIUM CHLORIDE 10 MEQ TABLET PO SCH (17:01)
[2021-09-04] MEDS: CYANOCOBALAMIN 500 MCG TABLET PO SCH (17:02)
[2021-09-04] MEDS: ASCORBIC ACID 500 MG TABLET PO SCH (17:02)
[2021-09-04] MEDS: CHOLECALCIFEROL 1,000 UNIT TABLET PO SCH (17:02)
[2021-09-04] MEDS: BUDESONIDE/FORMOTEROL 160-4.5 INHALER 6 GM INH SCH ×2 (17:02→20:55)
[2021-09-04] MEDS: DIGOXIN 0.125 MG TABLET PO SCH (17:03)
[2021-09-04] MEDS: ESCITALOPRAM 10 MG TABLET PO SCH (18:47)
[2021-09-04] MEDS: TEMAZEPAM 15 MG CAPSULE PO SCH (20:54)
[2021-09-04] MEDS: LORazepam 0.5 MG TABLET PO SCH (20:59)
[2021-09-05] MEDS: ALBUTEROL/IPRATROPIUM 3 ML NEB RESP TX SCH ×4 (00:43→19:22)
[2021-09-05] MEDS: methylPREDNISolone SOD SUC 40 MG/1 ML VIAL IV SCH ×3 (01:45→17:27)
[2021-09-05] MEDS: AZITHROMYCIN INJ 500 MG in SODIUM CHLORIDE 0.9% 250 ML IV SCH (04:50)
[2021-09-05 06:35] LABS: Basophils % 0.1 % (0.0-0.8); Hemoglobin 11.6 GM/DL (12.0-16.0); Immature Granulocytes % 0.6 %; Immature Granulocytes Absolute 0.05 #; Lymphocytes # 0.5 10*3/uL (1.4-4.0); Lymphocytes % 5.6 % (21.3-54.2); Mean Corpuscular HGB Conc 30.5 GM/DL (32-36); Mean Corpuscular Volume 85.6 FL (87-102); Mean Platelet Volume 11.3 FL (9.6-12.0); Monocytes % 4.4 % (1.7-12.7); Neutrophils % 89.3 % (38.7-73.9); Platelet Count 196 T/CUMM (130-400); Red Blood Count 4.44 MC/CUMM (3.8-5.5); Red Cell Distribution Width 18.5 % (9.3-17.3); White Blood Count 8.6 T/CUMM (4-12)
[2021-09-05 07:04] LABS: Hypochromasia Slight; Lymphocytes 1 % (20-55); Microcytosis Slight; Platelet Estimate Adequate; Segmented Neutrophils 93 % (50-85); Total Cells Counted 100
[2021-09-05 07:07] LABS: Calcium 9.2 MG/DL (8.5-10.1); Osmolality,Calculated 283.7 MOS/KG (273-304); Potassium 4.5 MMOL/L (3.5-5.1)
[2021-09-05] MEDS: CYANOCOBALAMIN 500 MCG TABLET PO SCH (09:19)
[2021-09-05] MEDS: MULTIVITAMIN (CENTRUM) TABLET PO SCH (09:20)
[2021-09-05] MEDS: POTASSIUM CHLORIDE 10 MEQ TABLET PO SCH (09:20)
[2021-09-05] MEDS: MAGNESIUM OXIDE 400 MG TABLET PO SCH (09:20)
[2021-09-05] MEDS: ASCORBIC ACID 500 MG TABLET PO SCH (09:20)
[2021-09-05] MEDS: APIXABAN 2.5 MG TABLET PO SCH ×2 (09:20→21:42)
[2021-09-05] MEDS: DOCUSATE SODIUM 100 MG CAPSULE PO SCH ×2 (09:20→21:42)
[2021-09-05] MEDS: cefTRIAXone 1,000 MG in SODIUM CHLORIDE 0.9% 100 ML IV SCH (09:21)
[2021-09-05] MEDS: cilostazoL 100 MG TABLET PO SCH ×2 (09:21→21:42)
[2021-09-05] MEDS: PANTOPRAZOLE 40 MG TABLET PO SCH (09:21)
[2021-09-05] MEDS: CHOLECALCIFEROL 1,000 UNIT TABLET PO SCH (09:21)
[2021-09-05] MEDS: BUDESONIDE/FORMOTEROL 160-4.5 INHALER 6 GM INH SCH ×2 (09:25→21:43)
[2021-09-05] MEDS: FLUTICASONE 50 MCG NASAL SPRAY 16 GM BOTTLE BOTH NARES SCH (09:25)
[2021-09-05] MEDS: LORazepam 0.5 MG TABLET PO SCH ×2 (10:26→21:42)
[2021-09-05] MEDS: DIGOXIN 0.125 MG TABLET PO SCH (14:30)
[2021-09-05] MEDS: TEMAZEPAM 15 MG CAPSULE PO SCH (21:42)
[2021-09-05] MEDS: ESCITALOPRAM 10 MG TABLET PO SCH (21:42)
[2021-09-06] MEDS: ALBUTEROL/IPRATROPIUM 3 ML NEB RESP TX SCH ×4 (00:50→19:55)
[2021-09-06] MEDS: methylPREDNISolone SOD SUC 40 MG/1 ML VIAL IV SCH ×2 (04:14→17:03)
[2021-09-06] MEDS: AZITHROMYCIN INJ 500 MG in SODIUM CHLORIDE 0.9% 250 ML IV SCH (04:14)
[2021-09-06] MEDS ORDERED: MEPERIDINE 50 MG/1 ML VIAL IM ONE (07:00)
[2021-09-06] MEDS ORDERED: GLYCOPYRROLATE 0.4 MG/2 ML VIAL IM ONE (07:00)
[2021-09-06] MEDS ORDERED: PROMETHAZINE 25 MG/1 ML VIAL IM ONE (07:00)
[2021-09-06] MEDS ORDERED: LIDOCAINE 2% 20 ML VIAL RESP TX ONE (07:30)
[2021-09-06] MEDS ORDERED: LIDOCAINE 2% VISCOUS 100 ML BOTTLE SWISH/SPIT ONE (07:30)
[2021-09-06] MEDS ORDERED: LIDOCAINE 1% 20 ML VIAL MISC INJ ONE (07:30)
[2021-09-06] MEDS ORDERED: MIDAZOLAM 2 MG/2 ML VIAL IV ONE (07:30)
[2021-09-06 09:03] LABS: Hematocrit 39.2 VOL% (35.7-47.0); Hemoglobin 11.8 GM/DL (12.0-16.0); Immature Granulocytes % 0.6 %; Immature Granulocytes Absolute 0.06 #; Lymphocytes # 0.5 10*3/uL (1.4-4.0); Lymphocytes % 5.7 % (21.3-54.2); Mean Corpuscular HGB Conc 30.1 GM/DL (32-36); Mean Corpuscular Volume 84.3 FL (87-102); Mean Platelet Volume 10.8 FL (9.6-12.0); Monocytes % 4.4 % (1.7-12.7); Neutrophils % 89.3 % (38.7-73.9); Platelet Count 210 T/CUMM (130-400); Red Blood Count 4.65 MC/CUMM (3.8-5.5); Red Cell Distribution Width 18.5 % (9.3-17.3); White Blood Count 9.3 T/CUMM (4-12)
[2021-09-06] MEDS: LORazepam 0.5 MG TABLET PO SCH ×3 (09:27→20:04)
[2021-09-06] MEDS: FLUTICASONE 50 MCG NASAL SPRAY 16 GM BOTTLE BOTH NARES SCH (09:30)
[2021-09-06] MEDS: cefTRIAXone 1,000 MG in SODIUM CHLORIDE 0.9% 100 ML IV SCH (09:31)
[2021-09-06] MEDS: DOCUSATE SODIUM 100 MG CAPSULE PO SCH ×2 (09:31→20:39)
[2021-09-06] MEDS: CYANOCOBALAMIN 500 MCG TABLET PO SCH (09:31)
[2021-09-06] MEDS: ASCORBIC ACID 500 MG TABLET PO SCH (09:32)
[2021-09-06] MEDS: MULTIVITAMIN (CENTRUM) TABLET PO SCH (09:32)
[2021-09-06] MEDS: MAGNESIUM OXIDE 400 MG TABLET PO SCH (09:32)
[2021-09-06] MEDS: cilostazoL 100 MG TABLET PO SCH ×2 (09:32→20:39)
[2021-09-06] MEDS: BUDESONIDE/FORMOTEROL 160-4.5 INHALER 6 GM INH SCH ×2 (09:33→20:39)
[2021-09-06] MEDS: PANTOPRAZOLE 40 MG TABLET PO SCH (09:33)
[2021-09-06] MEDS: CHOLECALCIFEROL 1,000 UNIT TABLET PO SCH (09:33)
[2021-09-06] MEDS: POTASSIUM CHLORIDE 10 MEQ TABLET PO SCH (09:33)
[2021-09-06 09:39] LABS: Calcium 9.1 MG/DL (8.5-10.1); Osmolality,Calculated 281.7 MOS/KG (273-304); Potassium 4.8 MMOL/L (3.5-5.1)
[2021-09-06] MEDS: DIGOXIN 0.125 MG TABLET PO SCH (12:40)
[2021-09-06] MEDS: ESCITALOPRAM 10 MG TABLET PO SCH (18:06)
[2021-09-06] MEDS: TEMAZEPAM 15 MG CAPSULE PO SCH (20:04)
[2021-09-07] MEDS: ALBUTEROL/IPRATROPIUM 3 ML NEB RESP TX SCH ×4 (00:32→18:52)
[2021-09-07] MEDS: LORazepam 0.5 MG TABLET PO PRN ×2 (03:17→17:02)
[2021-09-07] MEDS: methylPREDNISolone SOD SUC 40 MG/1 ML VIAL IV SCH ×3 (03:31→20:19)
[2021-09-07 06:16] LABS: Basophils % 0.1 % (0.0-0.8); Hematocrit 40.7 VOL% (35.7-47.0); Hemoglobin 12.3 GM/DL (12.0-16.0); Immature Granulocytes % 0.6 %; Immature Granulocytes Absolute 0.06 #; Lymphocytes # 0.5 10*3/uL (1.4-4.0); Lymphocytes % 4.7 % (21.3-54.2); Mean Corpuscular HGB Conc 30.2 GM/DL (32-36); Mean Corpuscular Volume 84.8 FL (87-102); Mean Platelet Volume 11.2 FL (9.6-12.0); Monocytes % 5.3 % (1.7-12.7); Neutrophils % 89.3 % (38.7-73.9); Platelet Count 236 T/CUMM (130-400); Red Cell Distribution Width 18.3 % (9.3-17.3); White Blood Count 10.4 T/CUMM (4-12)
[2021-09-07 06:28] LABS: Calcium 9.1 MG/DL (8.5-10.1); Osmolality,Calculated 280.7 MOS/KG (273-304); Potassium 4.5 MMOL/L (3.5-5.1)
[2021-09-07 06:42] LABS: Hypochromasia Slight; Lymphocytes 3 % (20-55); Microcytosis Slight; Platelet Estimate Adequate; Segmented Neutrophils 90 % (50-85); Total Cells Counted 100
[2021-09-07] MEDS: cefTRIAXone 1,000 MG in SODIUM CHLORIDE 0.9% 100 ML IV SCH (09:35)
[2021-09-07] MEDS: DOCUSATE SODIUM 100 MG CAPSULE PO SCH ×2 (09:36→20:19)
[2021-09-07] MEDS: PANTOPRAZOLE 40 MG TABLET PO SCH (09:36)
[2021-09-07] MEDS: CYANOCOBALAMIN 500 MCG TABLET PO SCH (09:36)
[2021-09-07] MEDS: MAGNESIUM OXIDE 400 MG TABLET PO SCH (09:36)
[2021-09-07] MEDS: MULTIVITAMIN (CENTRUM) TABLET PO SCH (09:36)
[2021-09-07] MEDS: ASCORBIC ACID 500 MG TABLET PO SCH (09:36)
[2021-09-07] MEDS: cilostazoL 100 MG TABLET PO SCH ×2 (09:36→20:19)
[2021-09-07] MEDS: APIXABAN 2.5 MG TABLET PO SCH ×2 (09:37→20:19)
[2021-09-07] MEDS: POTASSIUM CHLORIDE 10 MEQ TABLET PO SCH (09:37)
[2021-09-07] MEDS: FLUTICASONE 50 MCG NASAL SPRAY 16 GM BOTTLE BOTH NARES SCH (09:42)
[2021-09-07] MEDS: BUDESONIDE/FORMOTEROL 160-4.5 INHALER 6 GM INH SCH ×2 (09:42→20:20)
[2021-09-07] MEDS: DIGOXIN 0.125 MG TABLET PO SCH (12:00)
[2021-09-07] MEDS: CHOLECALCIFEROL 1,000 UNIT TABLET PO SCH (12:08)
[2021-09-07] MEDS: ESCITALOPRAM 10 MG TABLET PO SCH (20:19)
[2021-09-07] MEDS: TEMAZEPAM 15 MG CAPSULE PO SCH (20:19)
[2021-09-08] MEDS: ALBUTEROL/IPRATROPIUM 3 ML NEB RESP TX SCH ×4 (00:26→20:16)
[2021-09-08] MEDS: methylPREDNISolone SOD SUC 40 MG/1 ML VIAL IV SCH ×3 (05:26→21:46)
[2021-09-08 06:20] LABS: Basophils % 0.1 % (0.0-0.8); Eosinophils % 0.1 % (0.00-10.9); Hematocrit 42.7 VOL% (35.7-47.0); Hemoglobin 12.9 GM/DL (12.0-16.0); Immature Granulocytes % 0.4 %; Immature Granulocytes Absolute 0.04 #; Lymphocytes % 9.2 % (21.3-54.2); Mean Corpuscular HGB Conc 30.2 GM/DL (32-36); Mean Corpuscular Volume 85.6 FL (87-102); Monocytes % 5.5 % (1.7-12.7); Neutrophils % 84.7 % (38.7-73.9); Platelet Count 253 T/CUMM (130-400); Red Blood Count 4.99 MC/CUMM (3.8-5.5); Red Cell Distribution Width 18.2 % (9.3-17.3); White Blood Count 10.3 T/CUMM (4-12)
[2021-09-08 06:45] LABS: Calcium 9.6 MG/DL (8.5-10.1); Osmolality,Calculated 282.4 MOS/KG (273-304); Potassium 4.6 MMOL/L (3.5-5.1)
[2021-09-08 07:16] LABS: Hypochromasia 1+; Lymphocytes 13 % (20-55); Microcytosis 1+; Ovalocytes Few; Segmented Neutrophils 82 % (50-85); Total Cells Counted 100
[2021-09-08 07:17] LABS: Platelet Estimate Normal
[2021-09-08] MEDS: MULTIVITAMIN (CENTRUM) TABLET PO SCH (09:22)
[2021-09-08] MEDS: cilostazoL 100 MG TABLET PO SCH ×2 (09:22→21:46)
[2021-09-08] MEDS: MAGNESIUM OXIDE 400 MG TABLET PO SCH (09:22)
[2021-09-08] MEDS: ASCORBIC ACID 500 MG TABLET PO SCH (09:22)
[2021-09-08] MEDS: PANTOPRAZOLE 40 MG TABLET PO SCH (09:22)
[2021-09-08] MEDS: POTASSIUM CHLORIDE 10 MEQ TABLET PO SCH (09:22)
[2021-09-08] MEDS: APIXABAN 2.5 MG TABLET PO SCH ×2 (09:22→21:46)
[2021-09-08] MEDS: DOCUSATE SODIUM 100 MG CAPSULE PO SCH ×2 (09:22→21:46)
[2021-09-08] MEDS: CYANOCOBALAMIN 500 MCG TABLET PO SCH (09:22)
[2021-09-08] MEDS: cefTRIAXone 1,000 MG in SODIUM CHLORIDE 0.9% 100 ML IV SCH (09:23)
[2021-09-08] MEDS: BUDESONIDE/FORMOTEROL 160-4.5 INHALER 6 GM INH SCH ×2 (09:28→21:47)
[2021-09-08] MEDS: FLUTICASONE 50 MCG NASAL SPRAY 16 GM BOTTLE BOTH NARES SCH (09:28)
[2021-09-08] MEDS ORDERED: SODIUM CHLORIDE 0.9% 250 ML IV ONE (12:20)
[2021-09-08] MEDS: CHOLECALCIFEROL 1,000 UNIT TABLET PO SCH (12:27)
[2021-09-08] MEDS ORDERED: SODIUM CHLORIDE 0.9% 1,000 ML IV SCH (12:30)
[2021-09-08] MEDS: DIGOXIN 0.125 MG TABLET PO SCH (13:11)
[2021-09-08] MEDS: ZINC OXIDE PASTE 113 GM TUBE TOP SCH ×2 (16:12→21:46)
[2021-09-08] MEDS ORDERED: ESCITALOPRAM 10 MG TABLET PO SCH (21:00)
[2021-09-08] MEDS: TEMAZEPAM 15 MG CAPSULE PO SCH (21:45)
[2021-09-09] MEDS: ALBUTEROL/IPRATROPIUM 3 ML NEB RESP TX SCH ×2 (00:30→07:18)
[2021-09-09 04:43] LABS: Calcium 9.5 MG/DL (8.5-10.1); Osmolality,Calculated 285.3 MOS/KG (273-304); Potassium 4.6 MMOL/L (3.5-5.1)
[2021-09-09] MEDS: methylPREDNISolone SOD SUC 40 MG/1 ML VIAL IV SCH (04:53)
[2021-09-09 05:02] LABS: Basophils % 0.1 % (0.0-0.8); Hematocrit 41.5 VOL% (35.7-47.0); Immature Granulocytes % 0.5 %; Immature Granulocytes Absolute 0.05 #; Lymphocytes # 0.6 10*3/uL (1.4-4.0); Mean Corpuscular HGB Conc 29.9 GM/DL (32-36); Mean Platelet Volume 10.9 FL (9.6-12.0); Monocytes % 3.6 % (1.7-12.7); Neutrophils % 89.8 % (38.7-73.9); Platelet Count 273 T/CUMM (130-400); Red Blood Count 4.88 MC/CUMM (3.8-5.5); Red Cell Distribution Width 18.3 % (9.3-17.3); White Blood Count 10.7 T/CUMM (4-12)
[2021-09-09 05:20] LABS: Hemoglobin 12.4 GM/DL (12.0-16.0)
[2021-09-09] MEDS: cefTRIAXone 1,000 MG in SODIUM CHLORIDE 0.9% 100 ML IV SCH (08:25)
[2021-09-09] MEDS: POTASSIUM CHLORIDE 10 MEQ TABLET PO SCH (08:26)
[2021-09-09] MEDS: CYANOCOBALAMIN 500 MCG TABLET PO SCH (08:26)
[2021-09-09] MEDS: PANTOPRAZOLE 40 MG TABLET PO SCH (08:26)
[2021-09-09] MEDS: FLUTICASONE 50 MCG NASAL SPRAY 16 GM BOTTLE BOTH NARES SCH (08:27)
[2021-09-09] MEDS: MULTIVITAMIN (CENTRUM) TABLET PO SCH (08:27)
[2021-09-09] MEDS: APIXABAN 2.5 MG TABLET PO SCH (08:27)
[2021-09-09] MEDS: ASCORBIC ACID 500 MG TABLET PO SCH (08:27)
[2021-09-09] MEDS: MAGNESIUM OXIDE 400 MG TABLET PO SCH (08:27)
[2021-09-09] MEDS: CHOLECALCIFEROL 1,000 UNIT TABLET PO SCH (08:27)
[2021-09-09] MEDS: ZINC OXIDE PASTE 113 GM TUBE TOP SCH (08:27)
[2021-09-09] MEDS: cilostazoL 100 MG TABLET PO SCH (08:27)
[2021-09-09] MEDS: DOCUSATE SODIUM 100 MG CAPSULE PO SCH (08:27)
[2021-09-09] MEDS: BUDESONIDE/FORMOTEROL 160-4.5 INHALER 6 GM INH SCH (08:28)
[2021-09-09] MEDS ORDERED: predniSONE 20 MG TABLET PO SCH (10:30)
[2021-09-09 11:51] VITALS: BP 153/82
[2021-09-10] MEDS ORDERED: CEFUROXIME 500 MG TABLET PO SCH (09:00)
== END 2021-09-09 15:06 | disposition home health service (06) | DRG 190 ==
LOC: EDBD → EDUNIT# → N.ED 01:13 → N.EDINP 04:10 → SUATTDRO 04:10 → N.3E 10:06
PROVIDERS: ADMIT Internal Medicine; ATTEND Internal Medicine

== ENCOUNTER 2022-06-12 20:38 | Inpatient (IN) ==
[2022-06-12] MEDS ORDERED: ONDANSETRON 4 MG/2 ML VIAL IV STA (22:01)
[2022-06-12] MEDS ORDERED: SODIUM CHLORIDE 0.9% 500 ML IV STA (22:01)
[2022-06-12 22:23] LABS: Alanine Aminotransferase 30 U/L (13-56); Albumin 3.2 G/DL (3.4-5.0); Alkaline Phosphatase 86 U/L (45-117); Amylase 167 U/L (25-115); Aspartate Amino Transferase 39 U/L (0-37); Blood Urea Nitrogen 35 MG/DL (7-18); Calcium 9.3 MG/DL (8.5-10.1); Carbon Dioxide 27 MMOL/L (21-32); Chloride 100 MMOL/L (98-107); Glucose 116 MG/DL (74-106); Osmolality,Calculated 276.2 MOS/KG (273-304); Potassium 4.7 MMOL/L (3.5-5.1); Sodium 134 MMOL/L (136-145); Total Protein 6.5 G/DL (6.4-8.2)
[2022-06-12 22:32] LABS: Basophils # 0.1 10*3/uL (0.0-0.2); Basophils % 0.5 % (0.0-0.8); Eosinophils % 0.2 % (0.00-10.9); Hematocrit 38.3 VOL% (35.7-47.0); Hemoglobin 11.5 GM/DL (12.0-16.0); Immature Granulocytes % 0.6 %; Immature Granulocytes Absolute 0.07 #; Lymphocytes # 1.5 10*3/uL (1.4-4.0); Lymphocytes % 13.8 % (21.3-54.2); Mean Corpuscular Volume 82.9 FL (87-102); Mean Platelet Volume 11.2 FL (9.6-12.0); Monocytes # 1.5 10*3/uL (0.11-0.8); Monocytes % 13.5 % (1.7-12.7); Neutrophils % 71.4 % (38.7-73.9); Platelet Count 257 T/CUMM (130-400); Red Blood Count 4.62 MC/CUMM (3.8-5.5); Red Cell Distribution Width 21.2 % (9.3-17.3); White Blood Count 10.9 T/CUMM (4-12)
[2022-06-12] MEDS ORDERED: SODIUM CHLORIDE 0.9% 1,000 ML IV STA (23:30)
[2022-06-12] MEDS ORDERED: CIPROFLOXACIN INJ 400 MG/200 ML PREMIX IV STA (23:37)
[2022-06-12] MEDS ORDERED: metroNIDAZOLE INJ 500 MG/100 ML PREMIX IV STA (23:37)
[2022-06-12 23:39] LABS: Bacteria,Urine Occasional /HPF (Few); Hyaline Casts,Urine 12 /LPF (0-3); Mucus,Urine Occasional /LPF (Occasional); Protein,Urine 30 mg/dL (Negative); RBC,Urine 1 /HPF (0-4); Squamous Epithelial Cell,Urine Occasional /HPF (0-10); Urine Appearance Clear (Clear); Urine Color Yellow (Yellow); Urine pH 5.5 (4.5-8.0)
[2022-06-12 23:40] LABS: Bilirubin,Urine Negative (Negative); Blood, Urine Negative (Negative); Glucose,Urine (UA) Negative (Negative); Ketones,Urine Negative (Negative); Nitrite,Urine Negative (Negative)
[2022-06-12] MEDS ORDERED: guaiFENesin/DM ER 600-30 MG TABLET PO PRN (23:52)
[2022-06-12] MEDS ORDERED: GLUCAGON 1 MG VIAL IM PRN (23:52)
[2022-06-12] MEDS ORDERED: ACETAMINOPHEN 325 MG TABLET PO PRN (23:52)
[2022-06-12] MEDS ORDERED: DEXTROSE 10% 250 ML BAG IV PRN (23:52)
[2022-06-12] MEDS ORDERED: NICOTINE 21 MG/24 HR PATCH TRANSDERM PRN (23:52)
[2022-06-12] MEDS ORDERED: hydrALAZINE 20 MG/1 ML VIAL IV PRN (23:52)
[2022-06-12] MEDS ORDERED: ONDANSETRON 4 MG/2 ML VIAL IV PRN (23:52)
[2022-06-12] MEDS ORDERED: ZALEPLON 5 MG CAPSULE PO PRN (23:52)
[2022-06-12] MEDS ORDERED: diphenhydrAMINE CAP 25 MG CAPSULE PO PRN (23:52)
[2022-06-12] MEDS ORDERED: ALBUTEROL/IPRATROPIUM 3 ML NEB RESP TX PRN (23:52)
[2022-06-13] MEDS ORDERED: SODIUM CHLORIDE 0.9% 1,000 ML IV STA (01:00)
[2022-06-13] MEDS: cefTRIAXone 1,000 MG in SODIUM CHLORIDE 0.9% 100 ML IV SCH (01:02)
[2022-06-13] MEDS ORDERED: traMADol 50 MG TABLET PO PRN (01:04)
[2022-06-13 04:00] LABS: Calcium 8.5 MG/DL (8.5-10.1); Potassium 4.2 MMOL/L (3.5-5.1)
[2022-06-13 05:19] LABS: Basophils % 0.3 % (0.0-0.8); Eosinophils # 0.1 10*3/uL (0.0-0.87); Eosinophils % 0.8 % (0.00-10.9); Hematocrit 38.6 VOL% (35.7-47.0); Hemoglobin 11.4 GM/DL (12.0-16.0); Immature Granulocytes % 0.4 %; Immature Granulocytes Absolute 0.04 #; Lymphocytes % 20.2 % (21.3-54.2); Mean Corpuscular HGB Conc 29.5 GM/DL (32-36); Mean Corpuscular Volume 84.8 FL (87-102); Monocytes # 1.3 10*3/uL (0.11-0.8); Monocytes % 13.4 % (1.7-12.7); Neutrophils % 64.9 % (38.7-73.9); Platelet Count 254 T/CUMM (130-400); Red Blood Count 4.55 MC/CUMM (3.8-5.5); Red Cell Distribution Width 21.3 % (9.3-17.3); White Blood Count 9.9 T/CUMM (4-12)
[2022-06-13] MEDS: APIXABAN 2.5 MG TABLET PO SCH ×2 (09:58→21:10)
[2022-06-13] MEDS: metroNIDAZOLE INJ 500 MG/100 ML PREMIX IV SCH ×2 (09:58→18:06)
[2022-06-13] MEDS: POTASSIUM CHLORIDE 10 MEQ TABLET PO SCH (09:58)
[2022-06-13] MEDS: PANTOPRAZOLE 40 MG TABLET PO SCH (09:58)
[2022-06-13] MEDS: FUROSEMIDE 40 MG TABLET PO SCH (11:18)
[2022-06-13] MEDS: DULoxetine 30 MG CAPSULE PO SCH (21:10)
[2022-06-13] MEDS: TEMAZEPAM 15 MG CAPSULE PO SCH (22:04)
[2022-06-14] MEDS: cefTRIAXone 1,000 MG in SODIUM CHLORIDE 0.9% 100 ML IV SCH ×2 (01:28→23:31)
[2022-06-14] MEDS: metroNIDAZOLE INJ 500 MG/100 ML PREMIX IV SCH ×3 (02:15→16:05)
[2022-06-14] MEDS ORDERED: HYOSCYAMINE SULFATE 0.375 MG PO SCH (07:45)
[2022-06-14 09:01] LABS: Calcium 9.2 MG/DL (8.5-10.1); Osmolality,Calculated 283.7 MOS/KG (273-304); Potassium 3.6 MMOL/L (3.5-5.1)
[2022-06-14 09:09] LABS: Basophils % 0.5 % (0.0-0.8); Eosinophils # 0.1 10*3/uL (0.0-0.87); Eosinophils % 1.4 % (0.00-10.9); Hematocrit 39.4 VOL% (35.7-47.0); Hemoglobin 11.4 GM/DL (12.0-16.0); Immature Granulocytes % 0.6 %; Immature Granulocytes Absolute 0.05 #; Lymphocytes # 1.2 10*3/uL (1.4-4.0); Lymphocytes % 14.1 % (21.3-54.2); Mean Corpuscular HGB Conc 28.9 GM/DL (32-36); Mean Corpuscular Volume 85.8 FL (87-102); Mean Platelet Volume 10.9 FL (9.6-12.0); Monocytes # 1.3 10*3/uL (0.11-0.8); Monocytes % 15.4 % (1.7-12.7); Platelet Count 235 T/CUMM (130-400); Red Blood Count 4.59 MC/CUMM (3.8-5.5); Red Cell Distribution Width 21.3 % (9.3-17.3); White Blood Count 8.3 T/CUMM (4-12)
[2022-06-14] MEDS: hydrALAZINE 25 MG TABLET PO SCH ×3 (09:21→20:33)
[2022-06-14] MEDS: POTASSIUM CHLORIDE 10 MEQ TABLET PO SCH (09:21)
[2022-06-14] MEDS: cilostazoL 100 MG TABLET PO SCH ×2 (09:21→20:33)
[2022-06-14] MEDS: FUROSEMIDE 40 MG TABLET PO SCH (09:21)
[2022-06-14] MEDS: DIGOXIN 0.125 MG TABLET PO SCH (09:21)
[2022-06-14] MEDS: predniSONE 20 MG TABLET PO SCH (09:21)
[2022-06-14] MEDS: ESCITALOPRAM 10 MG TABLET PO SCH (09:22)
[2022-06-14] MEDS: PANTOPRAZOLE 40 MG TABLET PO SCH (09:22)
[2022-06-14] MEDS: APIXABAN 2.5 MG TABLET PO SCH ×2 (09:22→20:33)
[2022-06-14] MEDS: BUDESONIDE/FORMOTEROL 160-4.5 INHALER 6 GM INH SCH ×2 (09:25→20:37)
[2022-06-14] MEDS: CYCLOBENZAPRINE 10 MG TABLET PO SCH (20:33)
[2022-06-14] MEDS: TEMAZEPAM 15 MG CAPSULE PO SCH (20:33)
[2022-06-14] MEDS: DULoxetine 30 MG CAPSULE PO SCH (20:37)
[2022-06-14] MEDS: DEXTROSE 5% NACL 0.9% 1,000 ML IV SCH (22:31)
[2022-06-15] MEDS: metroNIDAZOLE INJ 500 MG/100 ML PREMIX IV SCH ×3 (01:30→21:00)
[2022-06-15] MEDS: DEXTROSE 5% NACL 0.9% 1,000 ML IV SCH (03:32)
[2022-06-15 05:48] LABS: Osmolality,Calculated 283.3 MOS/KG (273-304); Potassium 3.2 MMOL/L (3.5-5.1)
[2022-06-15 06:04] LABS: Basophils % 0.3 % (0.0-0.8); Eosinophils # 0.1 10*3/uL (0.0-0.87); Eosinophils % 1.1 % (0.00-10.9); Hematocrit 38.7 VOL% (35.7-47.0); Hemoglobin 11.7 GM/DL (12.0-16.0); Immature Granulocytes % 0.3 %; Immature Granulocytes Absolute 0.03 #; Lymphocytes # 1.3 10*3/uL (1.4-4.0); Lymphocytes % 14.5 % (21.3-54.2); Mean Corpuscular HGB Conc 30.2 GM/DL (32-36); Mean Corpuscular Volume 82.2 FL (87-102); Mean Platelet Volume 10.9 FL (9.6-12.0); Monocytes # 1.4 10*3/uL (0.11-0.8); Monocytes % 16.1 % (1.7-12.7); Neutrophils % 67.7 % (38.7-73.9); Platelet Count 220 T/CUMM (130-400); Red Blood Count 4.71 MC/CUMM (3.8-5.5); Red Cell Distribution Width 21.3 % (9.3-17.3); White Blood Count 8.8 T/CUMM (4-12)
[2022-06-15 06:15] LABS: Eosinophils 1 % (0-10); Hypochromia Slight; Lymphocytes 12 % (20-55); Microcytosis Slight; Platelet Estimate Adequate; Total Cells Counted 100
[2022-06-15] MEDS ORDERED: POTASSIUM CHLORIDE 20 MEQ TABLET PO ONE ×2 (07:49→13:00)
[2022-06-15] MEDS ORDERED: MORPHINE 2 MG/1 ML SYRINGE IV PRN (10:23)
[2022-06-15] MEDS: cilostazoL 100 MG TABLET PO SCH ×2 (10:24→20:59)
[2022-06-15] MEDS: PANTOPRAZOLE 40 MG TABLET PO SCH (10:25)
[2022-06-15] MEDS: hydrALAZINE 25 MG TABLET PO SCH ×3 (10:25→20:59)
[2022-06-15] MEDS: ESCITALOPRAM 10 MG TABLET PO SCH (10:25)
[2022-06-15] MEDS: BUDESONIDE/FORMOTEROL 160-4.5 INHALER 6 GM INH SCH ×2 (10:26→21:01)
[2022-06-15] MEDS: FUROSEMIDE 40 MG/4 ML VIAL IV SCH (10:30)
[2022-06-15] MEDS: CYCLOBENZAPRINE 10 MG TABLET PO SCH (20:59)
[2022-06-15] MEDS: TEMAZEPAM 15 MG CAPSULE PO SCH (20:59)
[2022-06-15] MEDS: DULoxetine 30 MG CAPSULE PO SCH (21:00)
[2022-06-15] MEDS: cefTRIAXone 1,000 MG in SODIUM CHLORIDE 0.9% 100 ML IV SCH (23:33)
[2022-06-16] MEDS: metroNIDAZOLE INJ 500 MG/100 ML PREMIX IV SCH (03:30)
[2022-06-16 08:29] LABS: Basophils % 0.5 % (0.0-0.8); Eosinophils # 0.3 10*3/uL (0.0-0.87); Eosinophils % 4.4 % (0.00-10.9); Hematocrit 37.6 VOL% (35.7-47.0); Hemoglobin 11.2 GM/DL (12.0-16.0); Immature Granulocytes % 0.8 %; Immature Granulocytes Absolute 0.05 #; Lymphocytes # 1.4 10*3/uL (1.4-4.0); Lymphocytes % 22.5 % (21.3-54.2); Mean Corpuscular HGB Conc 29.8 GM/DL (32-36); Mean Corpuscular Volume 84.3 FL (87-102); Mean Platelet Volume 10.4 FL (9.6-12.0); Monocytes % 15.5 % (1.7-12.7); Neutrophils % 56.3 % (38.7-73.9); Platelet Count 223 T/CUMM (130-400); Red Blood Count 4.46 MC/CUMM (3.8-5.5); Red Cell Distribution Width 21.2 % (9.3-17.3); White Blood Count 6.1 T/CUMM (4-12)
[2022-06-16 08:50] VITALS: BP 136/54
[2022-06-16 09:02] LABS: Albumin 2.6 G/DL (3.4-5.0); Bilirubin,Total 0.7 MG/DL (0.20-1.00); Osmolality,Calculated 276.7 MOS/KG (273-304); Potassium 3.8 MMOL/L (3.5-5.1); Total Protein 5.8 G/DL (6.4-8.2)
[2022-06-16] MEDS: predniSONE 20 MG TABLET PO SCH (09:57)
[2022-06-16] MEDS: ESCITALOPRAM 10 MG TABLET PO SCH (09:57)
[2022-06-16] MEDS: cilostazoL 100 MG TABLET PO SCH (09:57)
[2022-06-16] MEDS: PANTOPRAZOLE 40 MG TABLET PO SCH (09:58)
[2022-06-16] MEDS: DIGOXIN 0.125 MG TABLET PO SCH (09:58)
[2022-06-16] MEDS: hydrALAZINE 25 MG TABLET PO SCH (09:58)
[2022-06-16] MEDS: FUROSEMIDE 40 MG/4 ML VIAL IV SCH (09:59)
[2022-06-16] MEDS: BUDESONIDE/FORMOTEROL 160-4.5 INHALER 6 GM INH SCH (09:59)
== END 2022-06-16 12:43 | disposition home or self-care (01) | DRG 391 ==
LOC: EDUNIT# → EDBD → N.ED 20:38 → N.EDINP 23:52 → SUATTDRO 23:52 → N.TELES 06-13 18:30
PROVIDERS: ADMIT Hospitalist; ATTEND Family Medicine

== ENCOUNTER 2022-07-12 02:11 | Inpatient (IN) ==
[2022-07-12] MEDS ORDERED: ALBUTEROL/IPRATROPIUM 3 ML NEB RESP TX STA (02:38)
[2022-07-12] MEDS ORDERED: SODIUM CHLORIDE 0.9% 1,000 ML IV STA (02:38)
[2022-07-12] MEDS ORDERED: methylPREDNISolone SOD SUC 125 MG/2 ML VIAL IV STA (02:38)
[2022-07-12 02:44] LABS: Basophils % 0.4 % (0.0-0.8); Eosinophils # 0.2 10*3/uL (0.0-0.87); Hematocrit 32.8 VOL% (35.7-47.0); Hemoglobin 9.8 GM/DL (12.0-16.0); Immature Granulocytes % 0.4 %; Immature Granulocytes Absolute 0.02 #; Lymphocytes # 0.6 10*3/uL (1.4-4.0); Lymphocytes % 9.7 % (21.3-54.2); Mean Corpuscular HGB Conc 29.9 GM/DL (32-36); Mean Platelet Volume 11.2 FL (9.6-12.0); Monocytes % 16.8 % (1.7-12.7); NRBC # 0.07 10*3/uL; Neutrophils % 69.7 % (38.7-73.9); Platelet Count 173 T/CUMM (130-400); White Blood Count 5.7 T/CUMM (4-12)
[2022-07-12] MEDS ORDERED: SODIUM CHLORIDE 0.9% 500 ML IV STA (02:45)
[2022-07-12 02:55] LABS: INR 1.2; PT Patient Result 13.2 SECS (10.1-12.1)
[2022-07-12 03:11] LABS: Albumin 2.7 G/DL (3.4-5.0); Calcium 7.8 MG/DL (8.5-10.1); Osmolality,Calculated 284.3 MOS/KG (273-304); Potassium 3.6 MMOL/L (3.5-5.1); Total Protein 5.5 G/DL (6.4-8.2)
[2022-07-12 03:17] LABS: Eosinophils 3 % (0-10); Lymphocytes 8 % (20-55); Platelet Estimate Adequate; Total Cells Counted 100
[2022-07-12] MEDS ORDERED: ENOXAPARIN 30 MG/0.3 ML SYRINGE SUBCUT STA (03:19)
[2022-07-12] MEDS ORDERED: LEVOFLOXACIN INJ 500 MG/100 ML PREMIX IV ONE (03:19)
[2022-07-12 03:21] LABS: Arterial Base Excess iSTAT 3 MMOL/L (-2.5-2.5); Arterial Bicarbonate iSTAT 29.6 MMOL/L (20-26); Arterial O2 Saturation iSTAT 98 % (95-100); Arterial PCO2 iSTAT 51 MM HG (35-48); Arterial PO2 iSTAT 115 MM HG (80-95); Arterial Total CO2 iSTAT 31 MMO/L (23-27); Arterial pH iSTAT 7.368 (7.35-7.45)
[2022-07-12] MEDS ORDERED: ENOXAPARIN 60 MG/0.6 ML SYRINGE ONE (03:27)
[2022-07-12] MEDS ORDERED: FUROSEMIDE 40 MG/4 ML VIAL IV STA (04:31)
[2022-07-12] MEDS ORDERED: hydrALAZINE 20 MG/1 ML VIAL IV PRN (04:32)
[2022-07-12] MEDS ORDERED: ONDANSETRON 4 MG/2 ML VIAL IV PRN (04:32)
[2022-07-12] MEDS ORDERED: ACETAMINOPHEN 325 MG TABLET PO PRN (04:32)
[2022-07-12] MEDS ORDERED: MAGNESIUM SULF RIDER 2 GM/50 ML PREMIX IV ONE (05:00)
[2022-07-12] MEDS ORDERED: NICOTINE 21 MG/24 HR PATCH TRANSDERM PRN (05:13)
[2022-07-12] MEDS: ALBUTEROL/IPRATROPIUM 3 ML NEB RESP TX SCH ×3 (07:06→18:56)
[2022-07-12] MEDS: APIXABAN 2.5 MG TABLET PO SCH ×2 (09:52→21:24)
[2022-07-12] MEDS: TAMSULOSIN 0.4 MG CAPSULE PO SCH (09:52)
[2022-07-12] MEDS: DIGOXIN 0.125 MG TABLET PO SCH (09:52)
[2022-07-12] MEDS: CHOLECALCIFEROL 1,000 UNIT TABLET PO SCH (09:53)
[2022-07-12] MEDS: PANTOPRAZOLE 40 MG TABLET PO SCH (09:53)
[2022-07-12] MEDS: methylPREDNISolone SOD SUC 125 MG/2 ML VIAL IV SCH ×2 (10:01→17:59)
[2022-07-12] MEDS: FUROSEMIDE 40 MG/4 ML VIAL IV SCH ×2 (10:04→17:59)
[2022-07-12] MEDS: PIPERACILLIN/TAZOBACTAM 3,375 MG in SODIUM CHLORIDE 0.9% 100 ML IV SCH ×2 (10:50→17:59)
[2022-07-12] MEDS: BUDESONIDE/FORMOTEROL 160-4.5 INHALER 6 GM INH SCH (21:24)
[2022-07-12] MEDS ORDERED: TEMAZEPAM 15 MG CAPSULE PO ONE (22:30)
[2022-07-13] MEDS: ALBUTEROL/IPRATROPIUM 3 ML NEB RESP TX SCH ×5 (00:34→19:15)
[2022-07-13] MEDS: methylPREDNISolone SOD SUC 125 MG/2 ML VIAL IV SCH ×3 (00:40→16:01)
[2022-07-13] MEDS: PIPERACILLIN/TAZOBACTAM 3,375 MG in SODIUM CHLORIDE 0.9% 100 ML IV SCH ×3 (00:42→16:02)
[2022-07-13] MEDS: LEVOFLOXACIN INJ 500 MG/100 ML PREMIX IV SCH (04:00)
[2022-07-13 06:14] LABS: Hematocrit 33.9 VOL% (35.7-47.0); Immature Granulocytes % 0.4 %; Immature Granulocytes Absolute 0.03 #; Lymphocytes # 0.4 10*3/uL (1.4-4.0); Lymphocytes % 4.4 % (21.3-54.2); Mean Corpuscular HGB Conc 29.5 GM/DL (32-36); Mean Corpuscular Volume 82.1 FL (87-102); Mean Platelet Volume 10.6 FL (9.6-12.0); Monocytes # 0.3 10*3/uL (0.11-0.8); Monocytes % 3.5 % (1.7-12.7); NRBC # 0.03 10*3/uL; Neutrophils % 91.7 % (38.7-73.9); Platelet Count 156 T/CUMM (130-400); Red Blood Count 4.13 MC/CUMM (3.8-5.5); Red Cell Distribution Width 20.3 % (9.3-17.3); White Blood Count 7.9 T/CUMM (4-12)
[2022-07-13 06:45] LABS: Calcium 8.7 MG/DL (8.5-10.1); Osmolality,Calculated 277.8 MOS/KG (273-304); Potassium 3.3 MMOL/L (3.5-5.1)
[2022-07-13 06:47] LABS: Risk Ratio 2.23; VLDL Cholesterol 8.8 MG/DL
[2022-07-13 06:50] LABS: Band Neutrophils 1 % (0-10); Hypochromia 1+; Lymphocytes 2 % (20-55); Microcytosis 1+; Ovalocytes Few; Total Cells Counted 100
[2022-07-13 06:51] LABS: Platelet Estimate Adequate; Target Cells Slight
[2022-07-13] MEDS: FUROSEMIDE 40 MG/4 ML VIAL IV SCH ×2 (09:25→16:02)
[2022-07-13] MEDS: TAMSULOSIN 0.4 MG CAPSULE PO SCH (09:26)
[2022-07-13] MEDS: DIGOXIN 0.125 MG TABLET PO SCH (09:26)
[2022-07-13] MEDS: APIXABAN 2.5 MG TABLET PO SCH ×2 (09:26→21:38)
[2022-07-13] MEDS: PANTOPRAZOLE 40 MG TABLET PO SCH (09:26)
[2022-07-13] MEDS: CHOLECALCIFEROL 1,000 UNIT TABLET PO SCH (09:27)
[2022-07-13] MEDS: BUDESONIDE/FORMOTEROL 160-4.5 INHALER 6 GM INH SCH ×2 (09:27→21:38)
[2022-07-13] MEDS ORDERED: busPIRone 5 MG TABLET PO PRN (10:12)
[2022-07-13] MEDS ORDERED: POTASSIUM CHLORIDE 20 MEQ TABLET PO ONE (10:30)
[2022-07-13] MEDS ORDERED: MIDODRINE 5 MG TABLET PO ONE (10:30)
[2022-07-13] MEDS: MIDODRINE 5 MG TABLET PO SCH ×2 (16:02→22:35)
[2022-07-13] MEDS ORDERED: TEMAZEPAM 15 MG CAPSULE PO ONE (20:35)
[2022-07-14] MEDS: ALBUTEROL/IPRATROPIUM 3 ML NEB RESP TX SCH ×4 (00:10→18:57)
[2022-07-14] MEDS: PIPERACILLIN/TAZOBACTAM 3,375 MG in SODIUM CHLORIDE 0.9% 100 ML IV SCH ×4 (00:34→23:32)
[2022-07-14] MEDS: methylPREDNISolone SOD SUC 125 MG/2 ML VIAL IV SCH ×3 (00:35→17:09)
[2022-07-14] MEDS: LEVOFLOXACIN INJ 500 MG/100 ML PREMIX IV SCH (03:55)
[2022-07-14 04:51] LABS: Basophils % 0.1 % (0.0-0.8); Hematocrit 34.4 VOL% (35.7-47.0); Hemoglobin 10.3 GM/DL (12.0-16.0); Immature Granulocytes % 0.6 %; Immature Granulocytes Absolute 0.08 #; Lymphocytes # 0.4 10*3/uL (1.4-4.0); Lymphocytes % 3.1 % (21.3-54.2); Mean Corpuscular HGB Conc 29.9 GM/DL (32-36); Mean Corpuscular Volume 81.3 FL (87-102); Monocytes # 0.5 10*3/uL (0.11-0.8); Neutrophils % 92.2 % (38.7-73.9); Platelet Count 162 T/CUMM (130-400); Red Blood Count 4.23 MC/CUMM (3.8-5.5); Red Cell Distribution Width 20.7 % (9.3-17.3); White Blood Count 12.5 T/CUMM (4-12)
[2022-07-14 05:14] LABS: Band Neutrophils 1 % (0-10); Lymphocytes 3 % (20-55); Polychromasia Slight; Total Cells Counted 100
[2022-07-14 05:15] LABS: Anisocytosis 1+; Hypochromia 1+; Microcytosis 1+; Ovalocytes Few; Platelet Estimate Adequate; Target Cells Slight
[2022-07-14 05:21] LABS: Calcium 8.6 MG/DL (8.5-10.1); Osmolality,Calculated 285.3 MOS/KG (273-304); Potassium 3.3 MMOL/L (3.5-5.1)
[2022-07-14] MEDS: PANTOPRAZOLE 40 MG TABLET PO SCH ×2 (07:53→10:45)
[2022-07-14] MEDS: MIDODRINE 5 MG TABLET PO SCH ×4 (07:53→20:24)
[2022-07-14] MEDS: CHOLECALCIFEROL 1,000 UNIT TABLET PO SCH ×2 (07:54→10:46)
[2022-07-14] MEDS: ESCITALOPRAM 10 MG TABLET PO SCH ×2 (07:54→10:45)
[2022-07-14] MEDS: APIXABAN 2.5 MG TABLET PO SCH ×3 (07:54→20:24)
[2022-07-14] MEDS: TAMSULOSIN 0.4 MG CAPSULE PO SCH ×2 (07:54→10:45)
[2022-07-14] MEDS: DIGOXIN 0.125 MG TABLET PO SCH ×2 (07:54→10:45)
[2022-07-14] MEDS ORDERED: CYCLOBENZAPRINE 10 MG TABLET PO ONE (08:30)
[2022-07-14] MEDS ORDERED: POTASSIUM CHLORIDE 20 MEQ TABLET PO ONE (08:30)
[2022-07-14] MEDS: FUROSEMIDE 40 MG/4 ML VIAL IV SCH ×2 (09:14→17:07)
[2022-07-14] MEDS ORDERED: CYCLOBENZAPRINE 10 MG TABLET PO PRN (09:22)
[2022-07-14] MEDS: BUDESONIDE/FORMOTEROL 160-4.5 INHALER 6 GM INH SCH ×2 (10:33→20:30)
[2022-07-14] MEDS: cilostazoL 100 MG TABLET PO SCH (20:24)
[2022-07-14] MEDS: TEMAZEPAM 15 MG CAPSULE PO SCH (20:24)
[2022-07-15] MEDS: methylPREDNISolone SOD SUC 125 MG/2 ML VIAL IV SCH ×3 (01:10→18:05)
[2022-07-15] MEDS: ALBUTEROL/IPRATROPIUM 3 ML NEB RESP TX SCH ×5 (01:55→23:00)
[2022-07-15] MEDS: LEVOFLOXACIN INJ 500 MG/100 ML PREMIX IV SCH (03:00)
[2022-07-15 05:46] LABS: Basophils % 0.1 % (0.0-0.8); Hematocrit 33.4 VOL% (35.7-47.0); Immature Granulocytes % 0.4 %; Immature Granulocytes Absolute 0.05 #; Lymphocytes # 0.3 10*3/uL (1.4-4.0); Lymphocytes % 2.7 % (21.3-54.2); Mean Corpuscular HGB Conc 29.9 GM/DL (32-36); Mean Corpuscular Volume 81.7 FL (87-102); Mean Platelet Volume 11.6 FL (9.6-12.0); Monocytes # 0.5 10*3/uL (0.11-0.8); Monocytes % 4.1 % (1.7-12.7); Neutrophils % 92.7 % (38.7-73.9); Platelet Count 150 T/CUMM (130-400); Red Blood Count 4.09 MC/CUMM (3.8-5.5); Red Cell Distribution Width 20.2 % (9.3-17.3); White Blood Count 11.7 T/CUMM (4-12)
[2022-07-15 06:11] LABS: Albumin 2.7 G/DL (3.4-5.0); Bilirubin,Total 0.8 MG/DL (0.20-1.00); Osmolality,Calculated 284.5 MOS/KG (273-304); Total Protein 5.8 G/DL (6.4-8.2)
[2022-07-15 06:30] LABS: Hypochromia Slight; Lymphocytes 3 % (20-55); Microcytosis Slight; Ovalocytes Slight; Platelet Estimate Adequate; Total Cells Counted 100
[2022-07-15] MEDS: POTASSIUM CHLORIDE 20 MEQ TABLET PO PRN ×2 (06:34→10:20)
[2022-07-15] MEDS ORDERED: POTASSIUM CHLORIDE RIDER 10 MEQ/100 ML PREMIX IV PRN (08:48)
[2022-07-15] MEDS: cilostazoL 100 MG TABLET PO SCH ×2 (08:58→21:15)
[2022-07-15] MEDS: TAMSULOSIN 0.4 MG CAPSULE PO SCH (08:58)
[2022-07-15] MEDS: MULTIVITAMIN (CENTRUM) TABLET PO SCH (08:58)
[2022-07-15] MEDS: ESCITALOPRAM 10 MG TABLET PO SCH (08:58)
[2022-07-15] MEDS: DIGOXIN 0.125 MG TABLET PO SCH (08:59)
[2022-07-15] MEDS: MAGNESIUM OXIDE 400 MG TABLET PO SCH (09:00)
[2022-07-15] MEDS: PANTOPRAZOLE 40 MG TABLET PO SCH (09:00)
[2022-07-15] MEDS: MIDODRINE 5 MG TABLET PO SCH ×3 (09:00→21:15)
[2022-07-15] MEDS: FUROSEMIDE 40 MG/4 ML VIAL IV SCH ×2 (09:00→18:04)
[2022-07-15] MEDS: APIXABAN 2.5 MG TABLET PO SCH ×2 (09:00→21:14)
[2022-07-15] MEDS: CHOLECALCIFEROL 1,000 UNIT TABLET PO SCH (09:00)
[2022-07-15] MEDS: PIPERACILLIN/TAZOBACTAM 3,375 MG in SODIUM CHLORIDE 0.9% 100 ML IV SCH ×2 (09:01→18:04)
[2022-07-15] MEDS: POTASSIUM CHLORIDE 20 MEQ TABLET PO SCH (10:19)
[2022-07-15] MEDS: BUDESONIDE/FORMOTEROL 160-4.5 INHALER 6 GM INH SCH ×2 (10:19→21:15)
[2022-07-15] MEDS: TEMAZEPAM 15 MG CAPSULE PO SCH (21:15)
[2022-07-16] MEDS: ALBUTEROL/IPRATROPIUM 3 ML NEB RESP TX SCH ×3 (01:21→19:30)
[2022-07-16] MEDS: LEVOFLOXACIN INJ 500 MG/100 ML PREMIX IV SCH (04:07)
[2022-07-16 04:46] LABS: Hematocrit 34.4 VOL% (35.7-47.0); Hemoglobin 10.2 GM/DL (12.0-16.0); Immature Granulocytes % 0.6 %; Immature Granulocytes Absolute 0.07 #; Lymphocytes # 0.3 10*3/uL (1.4-4.0); Mean Corpuscular HGB Conc 29.7 GM/DL (32-36); Mean Corpuscular Volume 80.9 FL (87-102); Mean Platelet Volume 11.1 FL (9.6-12.0); Monocytes # 0.5 10*3/uL (0.11-0.8); Monocytes % 4.3 % (1.7-12.7); Neutrophils % 92.1 % (38.7-73.9); Platelet Count 158 T/CUMM (130-400); Red Blood Count 4.25 MC/CUMM (3.8-5.5); Red Cell Distribution Width 20.4 % (9.3-17.3); White Blood Count 10.8 T/CUMM (4-12)
[2022-07-16 05:05] LABS: Calcium 9.1 MG/DL (8.5-10.1); Osmolality,Calculated 287.4 MOS/KG (273-304); Potassium 3.6 MMOL/L (3.5-5.1)
[2022-07-16 05:37] LABS: Hypochromia Slight; Lymphocytes 1 % (20-55); Microcytosis Slight; Ovalocytes Slight; Platelet Estimate Adequate; Total Cells Counted 100
[2022-07-16] MEDS: CHOLECALCIFEROL 1,000 UNIT TABLET PO SCH (09:35)
[2022-07-16] MEDS: TAMSULOSIN 0.4 MG CAPSULE PO SCH (09:35)
[2022-07-16] MEDS: MAGNESIUM OXIDE 400 MG TABLET PO SCH (09:35)
[2022-07-16] MEDS: APIXABAN 2.5 MG TABLET PO SCH (09:35)
[2022-07-16] MEDS: PANTOPRAZOLE 40 MG TABLET PO SCH (09:36)
[2022-07-16] MEDS: ESCITALOPRAM 10 MG TABLET PO SCH (09:36)
[2022-07-16] MEDS: DIGOXIN 0.125 MG TABLET PO SCH (09:36)
[2022-07-16] MEDS: MIDODRINE 5 MG TABLET PO SCH ×3 (09:36→20:37)
[2022-07-16] MEDS: MULTIVITAMIN (CENTRUM) TABLET PO SCH (09:36)
[2022-07-16] MEDS: cilostazoL 100 MG TABLET PO SCH ×2 (09:36→20:36)
[2022-07-16] MEDS: FUROSEMIDE 40 MG/4 ML VIAL IV SCH ×2 (09:37→16:03)
[2022-07-16] MEDS: PIPERACILLIN/TAZOBACTAM 3,375 MG in SODIUM CHLORIDE 0.9% 100 ML IV SCH ×4 (09:37→23:17)
[2022-07-16] MEDS: methylPREDNISolone SOD SUC 125 MG/2 ML VIAL IV SCH ×3 (09:37→16:03)
[2022-07-16] MEDS: BUDESONIDE/FORMOTEROL 160-4.5 INHALER 6 GM INH SCH ×2 (11:13→20:37)
[2022-07-16] MEDS: POTASSIUM CHLORIDE 20 MEQ TABLET PO SCH (11:13)
[2022-07-16] MEDS: TEMAZEPAM 15 MG CAPSULE PO SCH (20:37)
[2022-07-17] MEDS: ALBUTEROL/IPRATROPIUM 3 ML NEB RESP TX SCH ×4 (00:08→19:36)
[2022-07-17] MEDS: methylPREDNISolone SOD SUC 125 MG/2 ML VIAL IV SCH ×3 (02:17→16:13)
[2022-07-17] MEDS: LEVOFLOXACIN INJ 500 MG/100 ML PREMIX IV SCH (04:00)
[2022-07-17 05:21] LABS: Immature Granulocytes % 0.5 %; Immature Granulocytes Absolute 0.05 #; Lymphocytes # 0.5 10*3/uL (1.4-4.0); Lymphocytes % 4.8 % (21.3-54.2); Mean Corpuscular HGB Conc 29.7 GM/DL (32-36); Mean Corpuscular Volume 79.7 FL (87-102); Mean Platelet Volume 10.8 FL (9.6-12.0); Monocytes % 10.3 % (1.7-12.7); Neutrophils % 84.4 % (38.7-73.9); Platelet Count 150 T/CUMM (130-400); Red Blood Count 4.64 MC/CUMM (3.8-5.5); Red Cell Distribution Width 20.3 % (9.3-17.3)
[2022-07-17 05:38] LABS: Calcium 9.5 MG/DL (8.5-10.1); Osmolality,Calculated 283.5 MOS/KG (273-304); Potassium 3.2 MMOL/L (3.5-5.1)
[2022-07-17 05:52] LABS: Hypochromia Slight; Lymphocytes 5 % (20-55); Microcytosis Slight; Platelet Estimate Adequate; Total Cells Counted 100
[2022-07-17] MEDS ORDERED: MEPERIDINE 50 MG/1 ML VIAL IM ONE (07:00)
[2022-07-17] MEDS ORDERED: PROMETHAZINE 25 MG/1 ML VIAL IM ONE (07:00)
[2022-07-17] MEDS ORDERED: LIDOCAINE 1% 20 ML VIAL MISC INJ ONE (07:30)
[2022-07-17] MEDS ORDERED: LIDOCAINE 2% VISCOUS 100 ML BOTTLE SWISH/SPIT ONE (07:30)
[2022-07-17] MEDS ORDERED: LIDOCAINE 2% 20 ML VIAL RESP TX ONE (07:30)
[2022-07-17] MEDS ORDERED: MIDAZOLAM 2 MG/2 ML VIAL IV ONE (07:30)
[2022-07-17] MEDS: MULTIVITAMIN (CENTRUM) TABLET PO SCH (10:07)
[2022-07-17] MEDS: TAMSULOSIN 0.4 MG CAPSULE PO SCH (10:08)
[2022-07-17] MEDS: DIGOXIN 0.125 MG TABLET PO SCH (10:09)
[2022-07-17] MEDS: ESCITALOPRAM 10 MG TABLET PO SCH (10:09)
[2022-07-17] MEDS: MAGNESIUM OXIDE 400 MG TABLET PO SCH (10:10)
[2022-07-17] MEDS: PANTOPRAZOLE 40 MG TABLET PO SCH (10:11)
[2022-07-17] MEDS: MIDODRINE 5 MG TABLET PO SCH ×3 (10:11→21:05)
[2022-07-17] MEDS: cilostazoL 100 MG TABLET PO SCH ×2 (10:11→21:05)
[2022-07-17] MEDS: CHOLECALCIFEROL 1,000 UNIT TABLET PO SCH (10:13)
[2022-07-17] MEDS: FUROSEMIDE 40 MG/4 ML VIAL IV SCH ×2 (10:15→16:26)
[2022-07-17] MEDS: BUDESONIDE/FORMOTEROL 160-4.5 INHALER 6 GM INH SCH ×2 (10:15→21:06)
[2022-07-17] MEDS: POTASSIUM CHLORIDE 20 MEQ TABLET PO SCH (10:22)
[2022-07-17] MEDS: PIPERACILLIN/TAZOBACTAM 3,375 MG in SODIUM CHLORIDE 0.9% 100 ML IV SCH ×3 (10:23→23:59)
[2022-07-17] MEDS: POTASSIUM CHLORIDE 20 MEQ TABLET PO PRN (16:26)
[2022-07-17] MEDS: APIXABAN 2.5 MG TABLET PO SCH (21:05)
[2022-07-17] MEDS: TEMAZEPAM 15 MG CAPSULE PO SCH (21:06)
[2022-07-18] MEDS: methylPREDNISolone SOD SUC 125 MG/2 ML VIAL IV SCH ×2 (00:02→09:03)
[2022-07-18] MEDS: ALBUTEROL/IPRATROPIUM 3 ML NEB RESP TX SCH ×2 (01:17→07:00)
[2022-07-18] MEDS: LEVOFLOXACIN INJ 500 MG/100 ML PREMIX IV SCH (04:02)
[2022-07-18 04:57] LABS: Basophils % 0.1 % (0.0-0.8); Hematocrit 36.5 VOL% (35.7-47.0); Hemoglobin 10.9 GM/DL (12.0-16.0); Immature Granulocytes % 0.4 %; Immature Granulocytes Absolute 0.05 #; Lymphocytes # 0.2 10*3/uL (1.4-4.0); Mean Corpuscular HGB Conc 29.9 GM/DL (32-36); Mean Corpuscular Volume 80.9 FL (87-102); Mean Platelet Volume 11.4 FL (9.6-12.0); Monocytes # 0.3 10*3/uL (0.11-0.8); Monocytes % 2.9 % (1.7-12.7); Neutrophils % 94.6 % (38.7-73.9); Platelet Count 146 T/CUMM (130-400); Red Blood Count 4.51 MC/CUMM (3.8-5.5); White Blood Count 11.5 T/CUMM (4-12)
[2022-07-18 05:13] LABS: Calcium 9.4 MG/DL (8.5-10.1); Osmolality,Calculated 286.4 MOS/KG (273-304); Potassium 3.6 MMOL/L (3.5-5.1)
[2022-07-18 05:20] LABS: Hypochromia Slight; Lymphocytes 1 % (20-55); Microcytosis Slight; Platelet Estimate Adequate; Total Cells Counted 100
[2022-07-18] MEDS: FUROSEMIDE 40 MG/4 ML VIAL IV SCH (09:02)
[2022-07-18] MEDS: cilostazoL 100 MG TABLET PO SCH (09:03)
[2022-07-18] MEDS: MULTIVITAMIN (CENTRUM) TABLET PO SCH (09:03)
[2022-07-18] MEDS: PIPERACILLIN/TAZOBACTAM 3,375 MG in SODIUM CHLORIDE 0.9% 100 ML IV SCH (09:03)
[2022-07-18] MEDS: MIDODRINE 5 MG TABLET PO SCH (09:04)
[2022-07-18] MEDS: TAMSULOSIN 0.4 MG CAPSULE PO SCH (09:04)
[2022-07-18] MEDS: MAGNESIUM OXIDE 400 MG TABLET PO SCH (09:05)
[2022-07-18] MEDS: APIXABAN 2.5 MG TABLET PO SCH (09:05)
[2022-07-18] MEDS: POTASSIUM CHLORIDE 20 MEQ TABLET PO SCH (09:05)
[2022-07-18] MEDS: PANTOPRAZOLE 40 MG TABLET PO SCH (09:05)
[2022-07-18] MEDS: ESCITALOPRAM 10 MG TABLET PO SCH (09:05)
[2022-07-18] MEDS: CHOLECALCIFEROL 1,000 UNIT TABLET PO SCH (09:06)
[2022-07-18] MEDS: DIGOXIN 0.125 MG TABLET PO SCH (09:06)
[2022-07-18] MEDS: BUDESONIDE/FORMOTEROL 160-4.5 INHALER 6 GM INH SCH (09:17)
[2022-07-18 11:57] VITALS: BP 101/39
== END 2022-07-18 12:42 | disposition home health service (06) | DRG 291 ==
LOC: N.ED 02:11 → SUATTDRO 04:32 → N.EDINP 04:32 → N.3E 18:32
PROVIDERS: ADMIT Internal Medicine; ATTEND Internal Medicine